=== PATIENT | female | born 1995 ===

== ENCOUNTER 2019-02-27 13:29 | Inpatient (IN) | payer OTHER, MEDICAID ==
[~2019-02-27] VITALS: Ht 170.2 cm; Wt 103.6 kg
[~2019-02-27 13:29] MED LIST: NKM
--- NOTE | 2019-02-27 13:37 | NUR ---
ED Nurse Note: PT BROUGHT IN TO ER TODAY BY [phone] FROM FRIEND'S HOUSE. [id number]. PT STATES HER FRIEND CALLED 911 BECAUSE IT LOOKED LIKE SHE WAS GOING TO FAINT. PT STATES SHE HAD A HEADACHE BUT THAT HEADACHE IS NOW GONE. PT DENIES DIZZINESS, NAUSEA, OR VOMITING. PT DOES PRESENT WITH FEVER - 102.6F. DR BLACKWOOD AWARE. PT DENIES ANY PAIN.
[2019-02-27 13:38] VITALS: BP 118/78
--- NOTE | 2019-02-27 13:53 | Emergency Room Report ---
History of Present Illness General Chief Complaint: Fever Source: Patient, EMS Present Illness HPI Patient is a 23-year-old female brought in by EMS after increased headache for the past 3 days. Patient had gradual onset of symptoms associated with some lightheadedness. She was noted to have fever greater than 102 degrees. She had not been vomiting. patient was brought in [place] a bus stop. She was noted to have decreased headache per triage note. History is obtained from triage nurse. No definite past medical history. Allergies: Coded Allergies: No Known Allergies (Unverified , 02/27/19) Patient History Past Medical History: see triage record Past Surgical History: unable to obtain Pertinent Family History: unable to obtain Last Menstrual Period: 02/25/19 Reviewed Nursing Documentation: PMH: Agreed; PSxH: Agreed Nursing Documentation-PMH Past Medical History: No Stated History Review of Systems All Other Systems: limited - by poor historian Physical Exam Vital Signs Date Time Temp Pulse Resp B/P (MAP) Pulse Ox O2 Delivery O2 Flow Rate FiO2 02/27/19 13:26 102.6 102 16 124/81 (95) 99 Room Air General Appearance: moderate distress, obese, other - somnolent awakes with stimulation Eyes: bilateral eye PERRL ENT: normal ENT inspection Neck: full range of motion Respiratory: chest non-tender, lungs clear, normal breath sounds, other - tachypnea Cardiovascular #1: normal peripheral pulses, no edema, tachycardia Gastrointestinal: normal inspection, non tender, soft Genitourinary: other - slight vaginal bleeding c/w menses Musculoskeletal: normal inspection Neurologic: responsive - loud verbal stimuli, localizes pain, motor strength/ tone normal, other - GCS [id number], somnolent Psychiatric: normal inspection Skin: other - faint rash to trunk and extremities, no petechia or purpura noted Procedures Critical Care Time Critical Care Time Critical care time excluding separately billed procedures was 45 minutes. Lumbar Puncture Consent: Emergent Location: L4-L5 Anesthesia: 1% Lidocaine Volume Anesthetic (ccs): 10 Prep: bedadine Needle Size: 3 1/2 CSF: other - intially slight bloody, cleared Post-Procedure: recumbent position Attempts: Other - three Complications: none Patient Tolerated: Well Medical Decision Making Diagnostic Impression: Primary Impression: Acute febrile illness Additional Impression: Meningitis ER Course Patient presented for increased headache and generalized weakness. Differential diagnosis include is not limited to sepsis, meningitis, encephalitis, intracranial hemorrhage, neuroleptic malignant syndrome, overdose , among others. Because of complexity of patient's case laboratory tests and imaging studies were ordered. CT of the head read by radiology showed no evidence of acute intracranial pathology. Patient noted be febrile with a temperature over 102 degrees. Patient was given IV fluids as well as IV antibiotics. She was noted to have some initial somnolence. This had somewhat improved after IV hydration. Patient was given Rocephin 2 g IV. She was also given IV acyclovir and Decadron. Laboratory testing showed normal WBC count, urinalysis showed no definite evidence of any definite infection. A lumbar puncture was performed which showed some evidence of leukocytosis as well as increased red blood cells in her CSF with lymphocyte predominance. Gram stain showed no organism. Patient was also given vancomycin as well as acyclovir. Patient was noted to have gag reflex intact and protects her airway. Dr. Alcantara was contacted for [facility] for inpatient management due to panel physician. Patient will be admitted to hospital for further monitoring. Labs Test 02/27/19 14:00 02/27/19 14:55 02/27/19 19:04 White Blood Count 9.4 K/UL (4.8-10.8) Red Blood Count 5.15 M/UL (4.20-5.40) Hemoglobin 12.4 G/DL (12.0-16.0) Hematocrit 39.6 % (37.0-47.0) Mean Corpuscular Volume 77 FL (80-99) Mean Corpuscular Hemoglobin 24.0 PG (27.0-31.0) Mean Corpuscular Hemoglobin Concent 31.2 G/DL (32.0-36.0) Red Cell Distribution Width 15.0 % (11.6-14.8) Platelet Count 287 K/UL (150-450) Mean Platelet Volume 5.3 FL (6.5-10.1) Neutrophils (%) (Auto) 72.5 % (45.0-75.0) Lymphocytes (%) (Auto) 15.6 % (20.0-45.0) Monocytes (%) (Auto) 11.3 % (1.0-10.0) Eosinophils (%) (Auto) 0.0 % (0.0-3.0) Basophils (%) (Auto) 0.5 % (0.0-2.0) Sodium Level 135 MMOL/L (136-145) Potassium Level 3.0 MMOL/L (3.5-5.1) Chloride Level 98 MMOL/L (98-107) Carbon Dioxide Level 26 MMOL/L (21-32) Anion Gap 12 mmol/L (5-15) Blood Urea Nitrogen 11 mg/dL (7-18) Creatinine 1.1 MG/DL (0.55-1.30) Estimat Glomerular Filtration Rate > 60 mL/min (>60) Glucose Level 134 MG/DL (74-106) Lactic Acid Level 1.00 mmol/L (0.4-2.0) Calcium Level 8.8 MG/DL (8.5-10.1) Phosphorus Level 3.2 MG/DL (2.5-4.9) Magnesium Level 2.1 MG/DL (1.8-2.4) Total Bilirubin 0.7 MG/DL (0.2-1.0) Aspartate Amino Transf (AST/SGOT) 29 U/L (15-37) Alanine Aminotransferase (ALT/SGPT) 19 U/L (12-78) Alkaline Phosphatase 56 U/L (46-116) Total Creatine Kinase 519 U/L (26-308) Creatine Kinase MB 1.9 NG/ML (0.0-3.6) Creatine Kinase MB Relative Index 0.3 Troponin I 0.000 ng/mL (0.000-0.056) Total Protein 8.8 G/DL (6.4-8.2) Albumin 4.1 G/DL (3.4-5.0) Globulin 4.7 g/dL Albumin/Globulin Ratio 0.9 (1.0-2.7) Thyroid Stimulating Hormone (TSH) 0.258 uiU/mL (0.358-3.740) Urine Color Pale yellow Urine Appearance Clear Urine pH 6 (4.5-8.0) Urine Specific [place] 1.030 (1.005-1.035) Urine Protein 1+ (NEGATIVE) Urine Glucose (UA) Negative (NEGATIVE) Urine Ketones Negative (NEGATIVE) Urine Blood Negative (NEGATIVE) Urine Nitrite Negative (NEGATIVE) Urine Bilirubin Negative (NEGATIVE) Urine Urobilinogen Normal MG/DL (0.0-1.0) Urine Leukocyte Esterase Negative (NEGATIVE) Urine RBC 0-2 /HPF (0 - 2) Urine WBC 2-4 /HPF (0 - 2) Urine Squamous Epithelial Cells Many /LPF (NONE/OCC) Urine Amorphous Sediment Many /LPF (NONE) Urine Bacteria Few /HPF (NONE) Urine HCG, Qualitative Negative (NEGATIVE) Urine Opiates Screen Negative (NEGATIVE) Urine Barbiturates Screen Negative (NEGATIVE) Phencyclidine (PCP) Screen Negative (NEGATIVE) Urine Amphetamines Screen Negative (NEGATIVE) Urine Benzodiazepines Screen Negative (NEGATIVE) Urine Cocaine Screen Negative (NEGATIVE) Urine Marijuana (THC) Screen Negative (NEGATIVE) CSF Appearance Clear (Clear) CSF Color Clolorless (Colorless) CSF WBC 45 /CU MM (0-5) CSF RBC 54 /CU MM CSF Neutrophils % 2 % CSF Lymphocytes % 96 % CSF Monocytes % 2 % CSF Crenated Cells 0 % CSF Glucose 54 mg/dL (40-70) CSF Total Protein 140 MG/DL (15-45) Last Vital Signs Date Time Temp Pulse Resp B/P (MAP) Pulse Ox O2 Delivery O2 Flow Rate FiO2 02/27/19 13:38 94 14 Room Air 02/27/19 13:38 102.6 118/78 100 Status: unchanged Disposition: ADMITTED INPATIENT Condition: Stable Sabas Yu MD Feb 27, 2019 13:53
[2019-02-27] MEDS ORDERED: Sodium Chloride 2,200 ML IVLG ONE (14:00)
[2019-02-27] MEDS ORDERED: cefTRIAXone 2 GM in NS 55 ML IVPB ONE (14:00)
[2019-02-27] MEDS ORDERED: Acetaminophen 500mg (ES) tab ORAL ONE (14:15)
[2019-02-27 14:41] LABS: BASOPHILS % (AUTO) 0.5 % (0.0-2.0); HEMATOCRIT 39.6 % (37.0-47.0); HEMOGLOBIN 12.4 G/DL (12.0-16.0); LYMPHOCYTES % (AUTO) 15.6 % (20.0-45.0); MEAN CORPUSCULAR VOLUME 77 FL (80-99); MONOCYTES % (AUTO) 11.3 % (1.0-10.0); NEUTROPHILS % (AUTO) 72.5 % (45.0-75.0); PLATELET COUNT 287 K/UL (150-450); RED BLOOD COUNT 5.15 M/UL (4.20-5.40); WHITE BLOOD COUNT 9.4 K/UL (4.8-10.8)
[2019-02-27 14:58] LABS: ANION GAP 12 mmol/L (5-15); BLOOD UREA NITROGEN 11 mg/dL (7-18); CALCIUM 8.8 MG/DL (8.5-10.1); CARBON DIOXIDE 26 MMOL/L (21-32); CHLORIDE 98 MMOL/L (98-107); CREATININE 1.1 MG/DL (0.55-1.30); SODIUM 135 MMOL/L (136-145)
[2019-02-27 15:00] VITALS: BP_SYST 114; BP_SYST 118; BP_DIAS 77; BP_DIAS 81
--- NOTE | 2019-02-27 15:08 | NUR ---
HAND-OFF: REPORT GIVEN TO BARBARA ENCARNACION.
--- NOTE | 2019-02-27 15:08 | NUR ---
ED Nurse Note: received report from RN Cade and assumed care, pt vss, resp even and unlabored on RA, sinus rhythm on court monitor, temp 99.2 noted oral. will cont monitor. pt unable to maintain awake more than 30 sec noted.
[2019-02-27 15:10] LABS: ALANINE AMINOTRANSFERASE 19 U/L (12-78); ALBUMIN 4.1 G/DL (3.4-5.0); ALBUMIN/GLOBULIN RATIO 0.9 (1.0-2.7); ALKALINE PHOSPHATASE 56 U/L (46-116); ASPARTATE AMINO TRANSFERASE 29 U/L (15-37); BILIRUBIN,TOTAL 0.7 MG/DL (0.2-1.0); CKMB 1.9 NG/ML (0.0-3.6); CREATINE KINASE 519 U/L (26-308); PHOSPHORUS 3.2 MG/DL (2.5-4.9)
[2019-02-27 15:10] LABS: APPEARANCE,URINE CLEAR; BILIRUBIN, URINE NEGATIVE (NEGATIVE); COLOR,URINE PALE YELLOW; GLUCOSE, URINE (UA) NEGATIVE (NEGATIVE); KETONES,URINE NEGATIVE (NEGATIVE); LEUKOCYTE ESTERASE ,URINE NEGATIVE (NEGATIVE); NITRITE,URINE NEGATIVE (NEGATIVE); PH,URINE 6 (4.5-8.0); PROTEIN,URINE 1+ (NEGATIVE); UROBILINOGEN,URINE NORMAL MG/DL (0.0-1.0)
--- NOTE | 2019-02-27 16:52 | Diagnostic Imaging Report ---
EXAM: CT Head Without Intravenous Contrast CLINICAL HISTORY: AMS TECHNIQUE: Axial computed tomography images of the head brain without intravenous contrast. CTDI is 73.90 mGy and DLP is 2149.40 mGy-cm. One or more of the following dose reduction techniques were used: automated exposure control, adjustment of the mA and or kV according to patient size, use of iterative reconstruction technique. COMPARISON: No relevant prior studies available. FINDINGS: Brain: Unremarkable. No hemorrhage. No significant white matter disease. No edema. Ventricles: Unremarkable. No ventriculomegaly. Bones joints: Unremarkable. No acute fracture. Soft tissues: Unremarkable. Sinuses: Unremarkable as visualized. No acute sinusitis. Mastoid air cells: Unremarkable as visualized. No mastoid effusion. IMPRESSION: Normal head brain CT.
--- NOTE | 2019-02-27 17:00 | NUR ---
ED Nurse Note: pt sleeping at this time, no changes, vss, resp even and unlabored on RA, iv intact and patent, sinus rhythm on monitor, will cont monitor.
[2019-02-27] MEDS ORDERED: Lidocaine 1% Plain 30 ml INJ ONE (18:30)
[2019-02-27] MEDS ORDERED: Vancomycin 1.25 GM in NS 275 ML IVPB SCH (18:30)
--- NOTE | 2019-02-27 18:45 | NUR ---
Nic alcala in EDM - 02/27/19 at 1944 by ANNETTE ED Nurse Note: assisted ERMD for lumbar puncture, pt tolerated well. procedure explained by ERMD.
--- NOTE | 2019-02-27 18:50 | NUR ---
ED Nurse Note: lumbar puncture done at the bedside, procedure was explained by carlos and pt verbally agreed to do it but unable to sign it at this time due to increased lethargy, carlos snyder pt tolerated well.
--- NOTE | 2019-02-27 19:10 | NUR ---
HAND-OFF: Report given to BARBARA SUAREZ and endorsed care.
--- NOTE | 2019-02-27 19:15 | NUR ---
ED Nurse Note: Got report from BARBARA Enamorado. Patient lethargic, reackting only to pain. AAO x0, VSS at this time. Dr. Yu did lumbar puncture, procedure went well.
[2019-02-27] MEDS ORDERED: Acyclovir 750 MG in NS 110 ML IV ONE (19:30)
[2019-02-27 19:54] VITALS: BP 107/67
[2019-02-27 20:00] VITALS: BP 112/65
[2019-02-27] MEDS ORDERED: Vancomycin 1.5gm/NS Premix IVPB ONE (21:00)
--- NOTE | 2019-02-27 21:10 | NUR ---
ED Nurse Note: REPORT GIVEN TO BARBARA RIVER FROM SDU.
[2019-02-27] MEDS ORDERED: Dexamethasone 4mg/ml vial IVP ONE (21:15)
--- NOTE | 2019-02-27 21:30 | NUR ---
NURSE NOTES: Pt transferred to the unit via gurney. Observed pt lying in the bed, lethargic, but answers questions by nodding head. SR on groundwater monitoring technician. VS WNL. No fever noted. IV on L AC 18G, SL. Belongings checked with ER nurse. Skin intact. Bed in the lowest position. Side rails up x3. Will continue to monitor.
[2019-02-27] MEDS: Docusate 100mg cap ORAL SCH (21:53)
[2019-02-27] MEDS: Heparin 5000 units/ml inj SUBQ SCH (21:55)
[2019-02-28] VITALS (7 sets, daily range): BP systolic 115–153; BP diastolic 60–92
--- NOTE | 2019-02-28 | NUR ---
NURSE NOTES: Noted pt sleeping in the bed. No acute distress noted. SR on monitor and storage bin tender. No sob on room air. Will continue to monitor.
[2019-02-28] MEDS: ACYCLOVIR IV SCH ×3 (01:12→17:09)
[2019-02-28] MEDS: NS IV SCH ×3 (01:12→17:09)
--- NOTE | 2019-02-28 03:00 | NUR ---
NURSE NOTES: IV pulled out by pt. New IV on L wrist. Pt tried to go to bathroom without calling RN. Education done regarding call light again. Will continue to monitor.
[2019-02-28] MEDS: Vancomycin 1 GM in NS 275 ML IVPB SCH ×3 (04:38→21:27)
[2019-02-28] MEDS: cefTRIAXone 2 GM in NS 110 ML IVPB SCH ×2 (06:27→17:15)
[2019-02-28 06:42] LABS: ANION GAP 11 mmol/L (5-15); BLOOD UREA NITROGEN 8 mg/dL (7-18); CALCIUM 8.8 MG/DL (8.5-10.1); CARBON DIOXIDE 23 MMOL/L (21-32); CHLORIDE 107 MMOL/L (98-107); CREATININE 0.8 MG/DL (0.55-1.30); POTASSIUM 3.9 MMOL/L (3.5-5.1); SODIUM 141 MMOL/L (136-145)
[2019-02-28 06:53] LABS: HEMATOCRIT 39.6 % (37.0-47.0); HEMOGLOBIN 12.4 G/DL (12.0-16.0); MEAN CORPUSCULAR VOLUME 77 FL (80-99); PLATELET COUNT 253 K/UL (150-450); RED BLOOD COUNT 5.17 M/UL (4.20-5.40); RED CELL DISTRIBUTION WIDTH 15.1 % (11.6-14.8); WHITE BLOOD COUNT 13.4 K/UL (4.8-10.8)
--- NOTE | 2019-02-28 07:52 | NUR ---
NURSE NOTES: received patient report form clementine rn. patient is on bed asleep. not in acute distress. on RA, sat ok. skin is intact.will follow plan of care.
--- NOTE | 2019-02-28 07:56 | NUR ---
HAND-OFF: Report given to BARBARA Eddy. Noted pt have fever of 102.2 and noted and got PRN med and given. Ice packs applied.
[2019-02-28] MEDS: Docusate 100mg cap ORAL SCH ×2 (08:45→21:27)
[2019-02-28] MEDS: Heparin 5000 units/ml inj SUBQ SCH ×2 (08:47→21:31)
--- NOTE | 2019-02-28 13:11 | Infectious Diseases Prog Note ---
Assessment/Plan Assessment/Plan Full consult dictated: A) 1) likely viral meningitis - rule out rule out herpes, rule WNV, influenza negative 2) rash 3) pmh - ? 4) allergies - nkda P) 1) vancomycin, ceftriaxone, acyclovir, doxycycline 2) f/u on cultures, labs and serology 3) will f/u 4) thank you Subjective Allergies: Coded Allergies: No Known Allergies (Unverified , 02/27/19) Objective Vital Signs Last 24 Hour Vital Signs Date Time Temp Pulse Resp B/P (MAP) Pulse Ox O2 Delivery O2 Flow Rate FiO2 02/28/19 08:22 100.9 02/28/19 08:00 Room Air 02/28/19 08:00 100.2 111 20 115/72 (86) 98 02/28/19 07:52 106 02/28/19 04:00 93 02/28/19 04:00 Room Air 02/28/19 04:00 97.8 93 20 140/60 (86) 99 02/28/19 00:00 74 02/28/19 00:00 Room Air 02/28/19 00:00 97.8 74 20 116/73 (87) 100 02/27/19 22:22 Room Air 02/27/19 21:50 69 02/27/19 21:15 99.2 76 18 108/56 99 Room Air 02/27/19 20:00 97.5 78 20 112/65 (81) 99 02/27/19 19:54 97.6 78 16 107/67 100 Room Air 02/27/19 15:00 99.2 88 18 114/77 100 Room Air 02/27/19 13:38 94 14 Room Air 02/27/19 13:38 102.6 94 14 118/78 100 Room Air 02/27/19 13:26 102.6 102 16 124/81 (95) 99 Room Air Height (Feet): 5 Height (Inches): 7.00 Weight (Pounds): 220 Microbiology Date/Time Source Procedure Growth Status 02/27/19 19:04 Cerebral Spinal Fluid Gram Stain - Final Resulted 02/27/19 19:04 Cerebral Spinal Fluid CSF Culture - Preliminary NO GROWTH Resulted 02/27/19 14:45 Nasal Nares - Final Complete 02/27/19 14:45 Nasal Nares - Final Complete Laboratory Tests Test 02/27/19 14:00 02/27/19 14:55 02/27/19 19:04 02/28/19 06:02 White Blood Count 9.4 K/UL (4.8-10.8) 13.4 K/UL (4.8-10.8) H Red Blood Count 5.15 M/UL (4.20-5.40) 5.17 M/UL (4.20-5.40) Hemoglobin 12.4 G/DL (12.0-16.0) 12.4 G/DL (12.0-16.0) Hematocrit 39.6 % (37.0-47.0) 39.6 % (37.0-47.0) Mean Corpuscular Volume 77 FL (80-99) L 77 FL (80-99) L Mean Corpuscular Hemoglobin 24.0 PG (27.0-31.0) L 24.0 PG (27.0-31.0) L Mean Corpuscular Hemoglobin Concent 31.2 G/DL (32.0-36.0) L 31.3 G/DL (32.0-36.0) L Red Cell Distribution Width 15.0 % (11.6-14.8) H 15.1 % (11.6-14.8) H Platelet Count 287 K/UL (150-450) 253 K/UL (150-450) Mean Platelet Volume 5.3 FL (6.5-10.1) L 5.4 FL (6.5-10.1) L Neutrophils (%) (Auto) 72.5 % (45.0-75.0) % (45.0-75.0) Lymphocytes (%) (Auto) 15.6 % (20.0-45.0) L % (20.0-45.0) Monocytes (%) (Auto) 11.3 % (1.0-10.0) H % (1.0-10.0) Eosinophils (%) (Auto) 0.0 % (0.0-3.0) % (0.0-3.0) Basophils (%) (Auto) 0.5 % (0.0-2.0) % (0.0-2.0) Sodium Level 135 MMOL/L (136-145) L 141 MMOL/L (136-145) Potassium Level 3.0 MMOL/L (3.5-5.1) L 3.9 MMOL/L (3.5-5.1) Chloride Level 98 MMOL/L (98-107) 107 MMOL/L (98-107) Carbon Dioxide Level 26 MMOL/L (21-32) 23 MMOL/L (21-32) Anion Gap 12 mmol/L (5-15) 11 mmol/L (5-15) Blood Urea Nitrogen 11 mg/dL (7-18) 8 mg/dL (7-18) Creatinine 1.1 MG/DL (0.55-1.30) 0.8 MG/DL (0.55-1.30) Estimat Glomerular Filtration Rate > 60 mL/min (>60) > 60 mL/min (>60) Glucose Level 134 MG/DL (74-106) H 108 MG/DL (74-106) H Lactic Acid Level 1.00 mmol/L (0.4-2.0) Calcium Level 8.8 MG/DL (8.5-10.1) 8.8 MG/DL (8.5-10.1) Phosphorus Level 3.2 MG/DL (2.5-4.9) Magnesium Level 2.1 MG/DL (1.8-2.4) Total Bilirubin 0.7 MG/DL (0.2-1.0) Aspartate Amino Transf (AST/SGOT) 29 U/L (15-37) Alanine Aminotransferase (ALT/SGPT) 19 U/L (12-78) Alkaline Phosphatase 56 U/L (46-116) Total Creatine Kinase 519 U/L (26-308) H Creatine Kinase MB 1.9 NG/ML (0.0-3.6) Creatine Kinase MB Relative Index 0.3 Troponin I 0.000 ng/mL (0.000-0.056) Total Protein 8.8 G/DL (6.4-8.2) H Albumin 4.1 G/DL (3.4-5.0) Globulin 4.7 g/dL Albumin/Globulin Ratio 0.9 (1.0-2.7) L Thyroid Stimulating Hormone (TSH) 0.258 uiU/mL (0.358-3.740) Urine Color Pale yellow Urine Appearance Clear Urine pH 6 (4.5-8.0) Urine Specific [place] 1.030 (1.005-1.035) Urine Protein 1+ (NEGATIVE) H Urine Glucose (UA) Negative (NEGATIVE) Urine Ketones Negative (NEGATIVE) Urine Blood Negative (NEGATIVE) Urine Nitrite Negative (NEGATIVE) Urine Bilirubin Negative (NEGATIVE) Urine Urobilinogen Normal MG/DL (0.0-1.0) Urine Leukocyte Esterase Negative (NEGATIVE) Urine RBC 0-2 /HPF (0 - 2) Urine WBC 2-4 /HPF (0 - 2) Urine Squamous Epithelial Cells Many /LPF (NONE/OCC) H Urine Amorphous Sediment Many /LPF (NONE) H Urine Bacteria Few /HPF (NONE) Urine HCG, Qualitative Negative (NEGATIVE) Urine Opiates Screen Negative (NEGATIVE) Urine Barbiturates Screen Negative (NEGATIVE) Phencyclidine (PCP) Screen Negative (NEGATIVE) Urine Amphetamines Screen Negative (NEGATIVE) Urine Benzodiazepines Screen Negative (NEGATIVE) Urine Cocaine Screen Negative (NEGATIVE) Urine Marijuana (THC) Screen Negative (NEGATIVE) CSF Appearance Clear (Clear) CSF Color Clolorless (Colorless) CSF WBC 45 /CU MM (0-5) *H CSF RBC 54 /CU MM CSF Neutrophils % 2 % CSF Lymphocytes % 96 % CSF Monocytes % 2 % CSF Crenated Cells 0 % CSF Glucose 54 mg/dL (40-70) CSF Total Protein 140 MG/DL (15-45) H Differential Total Cells Counted 100 Neutrophils % (Manual) 87 % (45-75) H Lymphocytes % (Manual) 5 % (20-45) L Monocytes % (Manual) 5 % (1-10) Eosinophils % (Manual) 1 % (0-3) Basophils % (Manual) 0 % (0-2) Band Neutrophils 2 % (0-8) Platelet Estimate Adequate Platelet Morphology Normal Anisocytosis 1+ Microcytosis 1+ Current Medications Medications (Trade) Dose Ordered Sig/Kandi Route PRN Reason Start Time Stop Time Status Last Admin Dose Admin Acetaminophen (Tylenol) 650 mg Q6H PRN ORAL Mild Pain/Temp > 100.5 02/28/19 07:45 03/30/19 07:44 02/28/19 07:52 Acyclovir 750 mg/ Sodium Chloride 275 ml @ 275 mls/hr Q8H IV 02/28/19 02:00 03/30/19 01:59 02/28/19 09:39 Ceftriaxone Sodium 2 gm/ Sodium Chloride 110 ml @ 220 mls/hr Q12HR@0600,1800 IVPB 02/28/19 06:00 03/07/19 05:59 02/28/19 06:27 Dextrose (Dextrose 50%) 25 ml Q30M PRN IV Hypoglycemia 02/27/19 18:30 03/29/19 18:29 Dextrose (Dextrose 50%) 50 ml Q30M PRN IV Hypoglycemia 02/27/19 18:30 03/29/19 18:29 Docusate Sodium (Colace) 100 mg EVERY 12 HOURS ORAL 02/27/19 21:00 03/29/19 20:59 02/28/19 08:45 Heparin Sodium (Porcine) (Heparin 5000 units/ml) 5,000 units EVERY 12 HOURS SUBQ 02/27/19 21:00 03/29/19 20:59 02/28/19 08:47 Ondansetron HCl (Zofran) 4 mg Q6H PRN IVP Nausea & Vomiting 02/27/19 18:30 03/29/19 18:29 Sodium Chloride 1,000 ml @ 100 mls/hr Q10H IVLG 02/27/19 19:19 03/29/19 19:18 02/28/19 04:39 Vancomycin HCl (Vanco rx to dose) 1 ea DAILY PRN MISC Per rx protocol 02/27/19 18:30 03/29/19 18:29 Vancomycin HCl 1 gm/Sodium Chloride 275 ml @ 183.708 mls/hr Q8HR@0500,1300,2100 IVPB 02/28/19 05:00 03/05/19 04:59 02/28/19 04:38 Alejandro Arellano MD Feb 28, 2019 13:11
[2019-02-28] MEDS: Doxycycline Hyclate 100 MG in D5W 110 ML IV SCH ×2 (14:23→21:27)
[2019-02-28] MEDS ORDERED: Tubing IV Secondary IV ONE (15:51)
[2019-02-28] MEDS ORDERED: NS 275ml ONE (15:51)
--- NOTE | 2019-02-28 16:09 | NUR ---
NURSE NOTES: paged dr rob to report that patient is not tolerating oral feedings. tamiflu oral is due at 1800 tonight. awaits callback and new order.
--- NOTE | 2019-02-28 16:22 | NUR ---
NURSE NOTES: called dr rob and reported that patient is not tolerating oral feeding, that a small amount of apple sauce was given and patient was vomiting. this nurse also reported that this patient has a tamiflu oral ordered at 1800 tonight, per dr rob just document that patient unable to tolerate oral feedings/meds. no need to NPO patient as of this time. will take note and carry out.
[2019-02-28] MEDS: Oseltamivir 75mg cap ORAL SCH (17:18)
--- NOTE | 2019-02-28 17:27 | History and Physical ---
History of Present Illness General Date patient seen: Feb 28, 2019 Reason for Hospitalization: Fever Present Illness HPI Trenton Elena is a 23 yo woman with no known PMH who presented with fever and AMS. Unable to obtain history from patient as patient with AMS and not verbally responsive. No contact or family information in chart for collateral information. Per ED records, patient brought in after friend reported that patient looked like she was about to faint at her house. Patient noted with fever to 102.6 on admission and tachycardic to 100s. Labs notable for leukocytosis 13.4 (today, none on admission, likely 2/2 decadron in ED), hypokalemia 3.0 (resolved today), and CK 519. CT head unremarkable. LP was done in ED, CSF analysis showed negative gram stain, negative bacterial culture to date, 45 WBC, 54 RBC, 54 glucose, 140 protein, and lymphocyte predominant. Patient was started on antibiotics and antiviral with ceftriaxone, acyclovir, and vancomycin IV. Allergies: Coded Allergies: No Known Allergies (Unverified , 02/27/19) Medication History Scheduled No Known Medications* (NKM - No Known Medications*), 0 ., (Reported) Patient History Limited by: medical condition History Provided By: Medical Record Healthcare decision maker Resuscitation status Full Code Advanced Directive on File Review of Systems ROS Narrative Unable to obtain ROS due to patient's mental status Physical Exam General Appearance: lethargic, confused, overweight, other - Opens eyes to painful stimuli and moans but does not respond to questions, protecting airway, no respiratory distress Lines, tubes and drains: peripheral HEENT: normocephalic, atraumatic Respiratory/Chest: lungs clear, normal breath sounds, no respiratory distress Cardiovascular/Chest: normal peripheral pulses, normal rate, regular rhythm Abdomen: normal bowel sounds, non tender, soft Skin Exam: other - Scattered erythematous rash noted on trunk, back, extremities, and face, non vesicular Neurologic: other - AAOx0, moans and opens eyes to painful stimuli Last 24 Hour Vital Signs Date Time Temp Pulse Resp B/P (MAP) Pulse Ox O2 Delivery O2 Flow Rate FiO2 02/28/19 16:00 Room Air 02/28/19 15:23 94 02/28/19 12:00 Room Air 02/28/19 12:00 83 02/28/19 12:00 100.2 91 36 120/75 (90) 98 9/29/19 08:22 100.9 02/28/19 08:00 Room Air 02/28/19 08:00 100.2 111 20 115/72 (86) 98 02/28/19 07:52 106 02/28/19 04:00 93 02/28/19 04:00 Room Air 02/28/19 04:00 97.8 93 20 140/60 (86) 99 02/28/19 00:00 74 02/28/19 00:00 Room Air 02/28/19 00:00 97.8 74 20 116/73 (87) 100 02/27/19 22:22 Room Air 02/27/19 21:50 69 02/27/19 21:15 99.2 76 18 108/56 99 Room Air 02/27/19 20:00 97.5 78 20 112/65 (81) 99 02/27/19 19:54 97.6 78 16 107/67 100 Room Air Intake and Output 02/27/19 02/28/19 19:00 07:00 Intake Total 760 ml Balance 760 ml Intake Oral 60 ml IV Total 700 ml # Voids 1 1 Laboratory Tests Test 02/27/19 19:00 02/27/19 19:04 02/28/19 06:00 02/28/19 06:02 CSF Varicella-Zoster IgM Antibody Pending CSF West Nile Virus IgG Antibody Pending CSF West Nile Virus IgM Antibody Pending Herpes Simplex Virus IgM Ab Screen Pending CSF Appearance Clear (Clear) CSF Color Clolorless (Colorless) CSF WBC 45 /CU MM (0-5) *H CSF RBC 54 /CU MM CSF Neutrophils % 2 % CSF Lymphocytes % 96 % CSF Monocytes % 2 % CSF Crenated Cells 0 % CSF Glucose 54 mg/dL (40-70) CSF Total Protein 140 MG/DL (15-45) H HIV (1&2) Antibody Rapid Negative (NEGATIVE) White Blood Count 13.4 K/UL (4.8-10.8) H Red Blood Count 5.17 M/UL (4.20-5.40) Hemoglobin 12.4 G/DL (12.0-16.0) Hematocrit 39.6 % (37.0-47.0) Mean Corpuscular Volume 77 FL (80-99) L Mean Corpuscular Hemoglobin 24.0 PG (27.0-31.0) L Mean Corpuscular Hemoglobin Concent 31.3 G/DL (32.0-36.0) L Red Cell Distribution Width 15.1 % (11.6-14.8) H Platelet Count 253 K/UL (150-450) Mean Platelet Volume 5.4 FL (6.5-10.1) L Neutrophils (%) (Auto) % (45.0-75.0) Lymphocytes (%) (Auto) % (20.0-45.0) Monocytes (%) (Auto) % (1.0-10.0) Eosinophils (%) (Auto) % (0.0-3.0) Basophils (%) (Auto) % (0.0-2.0) Differential Total Cells Counted 100 Neutrophils % (Manual) 87 % (45-75) H Lymphocytes % (Manual) 5 % (20-45) L Monocytes % (Manual) 5 % (1-10) Eosinophils % (Manual) 1 % (0-3) Basophils % (Manual) 0 % (0-2) Band Neutrophils 2 % (0-8) Platelet Estimate Adequate Platelet Morphology Normal Anisocytosis 1+ Microcytosis 1+ Sodium Level 141 MMOL/L (136-145) Potassium Level 3.9 MMOL/L (3.5-5.1) Chloride Level 107 MMOL/L (98-107) Carbon Dioxide Level 23 MMOL/L (21-32) Anion Gap 11 mmol/L (5-15) Blood Urea Nitrogen 8 mg/dL (7-18) Creatinine 0.8 MG/DL (0.55-1.30) Estimat Glomerular Filtration Rate > 60 mL/min (>60) Glucose Level 108 MG/DL (74-106) H Calcium Level 8.8 MG/DL (8.5-10.1) Microbiology Date/Time Source Procedure Growth Status 02/27/19 19:04 Cerebral Spinal Fluid Gram Stain - Final Resulted 02/27/19 19:04 Cerebral Spinal Fluid CSF Culture - Preliminary NO GROWTH Resulted Height (Feet): 5 Height (Inches): 7.00 Weight (Pounds): 220 Medications Current Medications Medications (Trade) Dose Ordered Sig/Kandi Route PRN Reason Start Time Stop Time Status Last Admin Dose Admin Acetaminophen (Tylenol) 650 mg Q6H PRN ORAL Mild Pain/Temp > 100.5 02/28/19 07:45 03/30/19 07:44 02/28/19 07:52 Acyclovir 750 mg/ Sodium Chloride 275 ml @ 275 mls/hr Q8H IV 02/28/19 02:00 03/30/19 01:59 02/28/19 09:39 Ceftriaxone Sodium 2 gm/ Sodium Chloride 110 ml @ 220 mls/hr Q12HR@0600,1800 IVPB 02/28/19 06:00 03/07/19 05:59 02/28/19 06:27 Dextrose (Dextrose 50%) 25 ml Q30M PRN IV Hypoglycemia 02/27/19 18:30 03/29/19 18:29 Dextrose (Dextrose 50%) 50 ml Q30M PRN IV Hypoglycemia 02/27/19 18:30 03/29/19 18:29 Docusate Sodium (Colace) 100 mg EVERY 12 HOURS ORAL 02/27/19 21:00 03/29/19 20:59 02/28/19 08:45 Doxycycline Hyclate 100 mg/ Dextrose 110 ml @ 110 mls/hr Q12HR IV 02/28/19 14:30 03/07/19 14:29 02/28/19 14:23 Heparin Sodium (Porcine) (Heparin 5000 units/ml) 5,000 units EVERY 12 HOURS SUBQ 02/27/19 21:00 03/29/19 20:59 02/28/19 08:47 Ondansetron HCl (Zofran) 4 mg Q6H PRN IVP Nausea & Vomiting 02/27/19 18:30 03/29/19 18:29 Oseltamivir Phosphate (Tamiflu) 75 mg TWICE A DAY ORAL 02/28/19 18:00 03/05/19 17:59 Sodium Chloride 1,000 ml @ 100 mls/hr Q10H IVLG 02/27/19 19:19 03/29/19 19:18 02/28/19 14:26 Vancomycin HCl (Vanco rx to dose) 1 ea DAILY PRN MISC Per rx protocol 02/27/19 18:30 03/29/19 18:29 Vancomycin HCl 1 gm/Sodium Chloride 275 ml @ 183.708 mls/hr Q8HR@0500,1300,2100 IVPB 02/28/19 05:00 03/05/19 04:59 02/28/19 13:35 Assessment/Plan Status: not improved, fever Assessment/Plan: Trenton Elena is a 23 yo woman with no known PMH who presented with fever and AMS , found with likely viral meningitis. Neuro/ID: Likely viral meningitis, infectious encephalopathy - CT head overall unremarkable - Febrile to Tm 102.6 - Severely altered mentation - CSF notable for 45 WBC with 96% lymphocytes, 54 glucose, elevated protein 140. Gram stain negative and bacterial culture negative thus far - ID consult Dr. Arellano, recs appreciated - Continue ceftriaxone 2gm IV q12hrs, vancomycin 1gm IV q8hrs, and acyclovir 750mg IV q8hrs. Add doxycycline 100mg IV q12hrs and tamiflu 75mg BID - S/p decadron x 1 in ED. CSF studies not consistent with strep meningitis, hold off on further steroids - F/U further studies including WNV, HSV, VZV, TB spot, rickettsial, hepatitis, HIV, crypto, coccidio - Tylenol PRN fever Hypokalemia - Resolved with repletion Nausea/vomiting - Zofran PRN FEN IVF NS @100cc/hr until able to tolerate PO 2/2 mental status Regular diet when awake but otherwise NPO Heparin subq DVT PPX Discussed with Dr. Arellano and RN. I spent 75 minutes on this patient's care, including >50% on counseling and/or coordination of care. Michelle Mcgovern M.D. Feb 28, 2019 17:27
--- NOTE | 2019-02-28 19:28 | NUR ---
NURSE NOTES: copy of patients report given to travis arteaga
--- NOTE | 2019-02-28 21:00 | NUR ---
NURSE NOTES: Pt report received from Wendy JIMENEZ MONICA. Pt is alert and oriented times 1. pt vital signs are stable, pt is on a manager cardiac able to show NSR, no abnormalities noted. pt is on room air, able to sat at 99%, no distress noted. pt bed is locked, armed, bed rails up times 3, call light within reach. will continue plan of care.
--- NOTE | 2019-02-28 21:00 | Consultation ---
DATE OF CONSULTATION: 02/28/2019 INFECTIOUS DISEASES CONSULTATION ATTENDING PHYSICIAN: Yao Marmolejo M.D. REFERRING PHYSICIAN: Dr. Mcgovern. REASON FOR CONSULTATION: Meningitis, likely viral meningitis. CHIEF COMPLAINT: The patient's chief complaint coming into the hospital is meningitis, altered mental status, and fevers. HISTORY OF PRESENT ILLNESS: This is a 23-year-old female who comes in to [facility] with altered mental status and fevers. She had an LP, which showed 45 white cells, 96% lymphocytes, CSF protein 140, and glucose of 54. CSF culture is negative to date it looks like. The patient also has a rash. She also came in with headache. Currently, she is lethargic and cannot give any history. The patient was started on Rocephin, acyclovir, and vancomycin. Serology has been ordered and CSF for herpes simplex, and zoster PCR has been ordered West Nile virus IgM for the CSF. I have also ordered serology. I am going to add doxycycline because the patient does have a rash and consider rickettsial infection including Rickettsia typhi. The influenza screen is negative. Consider still treating with Tamiflu if does not improve. The patient will continue antibiotics, pending serology and CSF cultures. Case was discussed with Dr. Mcgovern. REVIEW OF SYSTEMS: Cannot be obtained from the patient. PAST MEDICAL HISTORY: Unknown. FAMILY HISTORY: Unknown. ALLERGIES: Negative. SOCIAL HISTORY: Unknown. MEDICATIONS: Reviewed. MAR was noted. She is on multiple antibiotics including doxycycline, Rocephin, acyclovir, and vancomycin. IV fluids have been given. PHYSICAL EXAMINATION: VITAL SIGNS: T-max is 102.6, current temperature is 100.9; pulse rate 111; respiratory rate 20; saturation 98%; and blood pressure 115/72. GENERAL: Lethargic, weak, opens her eyes, but very lethargic. NECK: Seems to be mostly supple, but difficult to assess because of her lethargy. She is normocephalic. No icterus. HEART: Regular. No obvious gallop or murmur. Tachycardic. ABDOMEN: Soft. Positive bowel sounds. Nontender. LUNGS: Clear bilaterally. No rhonchi or rales. SKIN: She has a maculopapular rash. No ecchymosis noted. No vesicles noted. MUSCULOSKELETAL: No effusion. Legs without cellulitis. NEUROLOGIC: Lethargic, could not really assess further. LABORATORY AND DIAGNOSTIC DATA: UA, leukocyte esterase negative. Creatinine is 0.8. White count 13.4, hemoglobin 12.4. CSF, LP, had 45 white cells, 140 protein, glucose 54, and 96% lymphocytes. CSF culture negative to date. CSF serology for West Nile virus IgM and herpes zoster virus and simplex virus PCR has been ordered. CT scan of the head showed normal CT scan. ASSESSMENT AND PLAN: 1. The patient likely has viral meningitis, rule out herpes simplex virus and zoster virus meningitis. The patient also had altered mental status, fevers, rule out West Nile virus infection. Rule out rickettsial infection of the rash such as Rickettsia typhi. At this time, we will continue vancomycin, Rocephin, acyclovir, and doxycycline. The patient may need Tamiflu if does not improve; however, influenza screen is negative. Check on serology and CSF studies as outlined. We will also check HIV test. 2. Past medical history otherwise unknown. 3. No allergy. 4. Case was discussed with Dr. Mcgovern. 5. We will follow with you. Thank you for this consultation. Alejandro Arellano M.D. DR: Tammy JOB#: [id number] CC:
--- NOTE | 2019-02-28 21:30 | NUR ---
NURSE NOTES: Will run Vibramycin IV after Vancomycin IV infusion is finished.
[2019-03-01] VITALS: BP 122/84
--- NOTE | 2019-03-01 01:10 | NUR ---
NURSE NOTES: Ice packs have been placed in Pt Auxiliary.
[2019-03-01] MEDS: ACYCLOVIR IV SCH ×3 (01:15→18:18)
[2019-03-01] MEDS: NS IV SCH ×3 (01:15→18:18)
[2019-03-01 04:00] VITALS: BP 140/70
--- NOTE | 2019-03-01 04:53 | NUR ---
NURSE NOTES: Spoke with Caio Casanova RN Pharmacist. she stated she will print labels for the vanco 1.5GM and recefin 2GM. will leaf size picker med from household coordinator. Addendum: 03/01/19 at 0457 by JEFFREY ROE RN NURSE NOTES: Spoke with Caio Casanova RX Pharmacist. she stated she will print labels for the vanco 1.5GM and recefin 2GM. will leaf size picker med from household coordinator.
[2019-03-01] MEDS: cefTRIAXone 2 GM in NS 110 ML IVPB SCH ×2 (05:21→17:21)
[2019-03-01] MEDS: Vancomycin 1.5gm/NS Premix IVPB SCH ×3 (05:21→20:14)
--- NOTE | 2019-03-01 05:22 | NUR ---
NURSE NOTES: Will run vanco after rocephin IV. untill rocephine is finished, vanco is to be returned to fridge.
[2019-03-01 06:07] LABS: BASOPHILS % (AUTO) 0.3 % (0.0-2.0); HEMATOCRIT 33.8 % (37.0-47.0); HEMOGLOBIN 10.7 G/DL (12.0-16.0); LYMPHOCYTES % (AUTO) 15.3 % (20.0-45.0); MEAN CORPUSCULAR VOLUME 76 FL (80-99); NEUTROPHILS % (AUTO) 78.4 % (45.0-75.0); PLATELET COUNT 262 K/UL (150-450); RED BLOOD COUNT 4.43 M/UL (4.20-5.40); RED CELL DISTRIBUTION WIDTH 14.8 % (11.6-14.8); WHITE BLOOD COUNT 13.2 K/UL (4.8-10.8)
[2019-03-01 06:36] LABS: ALANINE AMINOTRANSFERASE 26 U/L (12-78); ALBUMIN 2.9 G/DL (3.4-5.0); ALBUMIN/GLOBULIN RATIO 0.7 (1.0-2.7); ALKALINE PHOSPHATASE 42 U/L (46-116); ASPARTATE AMINO TRANSFERASE 34 U/L (15-37); BILIRUBIN,TOTAL 0.7 MG/DL (0.2-1.0); CALCIUM 8.6 MG/DL (8.5-10.1); CHLORIDE 104 MMOL/L (98-107); CREATININE 0.6 MG/DL (0.55-1.30); POTASSIUM 3.1 MMOL/L (3.5-5.1); SODIUM 138 MMOL/L (136-145)
[2019-03-01 07:13] LABS: CARBON DIOXIDE 23 MMOL/L (21-32)
[2019-03-01 07:18] LABS: BLOOD UREA NITROGEN 5 mg/dL (7-18)
--- NOTE | 2019-03-01 07:20 | NUR ---
HAND-OFF: Report given to Mary Kay Lal Pt remains stable.
--- NOTE | 2019-03-01 07:21 | NUR ---
NURSE NOTES: Received patient patient clean and dry, A&O x 1, NSR, 22g IV left wrist with NS running at 100mL/hr, skin intact Addendum: 03/01/19 at 0843 by JORDON LOOMIS RN No skin alterations noted at this time. Bed is lowest position, alarm on,call light within reach, side rails up x2,sister at bedside, will continue to monitor pt.
[2019-03-01 08:00] VITALS: BP 136/83
--- NOTE | 2019-03-01 09:08 | General Progress Note ---
Assessment/Plan Problem List: (1) Meningitis ICD Codes: G03.9 - Meningitis, unspecified SNOMED: 5050297 (2) Acute febrile illness ICD Codes: R50.9 - Fever, unspecified SNOMED: 455247252 (3) Fever ICD Codes: R50.9 - Fever, unspecified SNOMED: 169472206 Status: not improved, fever Assessment/Plan: Trenotn Elena is a 23 yo woman with no known PMH who presented with fever and AMS , found with likely viral meningitis. Neuro/ID: Likely viral meningitis, infectious encephalopathy - CT head overall unremarkable - Febrile to Tm 101.2 past 24hrs - Severely altered mentation - CSF notable for 45 WBC with 96% lymphocytes, 54 glucose, elevated protein 140. Gram stain negative and bacterial culture negative thus far - ID consult Dr. Arellano, recs appreciated - Continue ceftriaxone 2gm IV q12hrs, vancomycin 1gm IV q8hrs, and acyclovir 750mg IV q8hrs, doxycycline 100mg IV q12hrs and tamiflu 75mg BID - S/p decadron x 1 in ED. CSF studies not consistent with strep meningitis, hold off on further steroids - F/U further studies including WNV, HSV, VZV, TB spot, rickettsial, hepatitis, HIV, crypto, coccidio - Tylenol PRN fever Hypokalemia - Replace as needed Nausea/vomiting - Zofran PRN FEN IVF NS @100cc/hr until able to tolerate PO 2/2 mental status Regular diet when awake but otherwise NPO Heparin subq DVT PPX Discussed with RN. I spent 40 minutes on this patient's care, including >50% on counseling and/or coordination of care. Subjective Date patient seen: Mar 01, 2019 Allergies: Coded Allergies: No Known Allergies (Unverified , 02/27/19) Subjective unresponsive, poor historian Objective Last 24 Hour Vital Signs Date Time Temp Pulse Resp B/P (MAP) Pulse Ox O2 Delivery O2 Flow Rate FiO2 03/01/19 08:00 97.0 89 20 136/83 (100) 100 03/01/19 08:00 Room Air 03/01/19 07:26 78 03/01/19 04:00 Room Air 03/01/19 04:00 98.1 87 20 140/70 (93) 100 03/01/19 04:00 75 03/01/19 01:01 99.8 03/01/19 00:00 Room Air 03/01/19 00:00 100.1 87 20 122/84 (97) 98 03/01/19 00:00 81 02/28/19 20:00 98.2 96 20 129/74 (92) 97 02/28/19 20:00 Room Air 02/28/19 20:00 88 02/28/19 16:00 101.2 92 39 153/92 (112) 98 02/28/19 16:00 Room Air 02/28/19 15:23 94 02/28/19 12:00 Room Air 02/28/19 12:00 83 02/28/19 12:00 100.2 91 36 120/75 (90) 98 Intake and Output 02/28/19 03/01/19 19:00 07:00 Intake Total 2292.416 ml 1595 ml Balance 2292.416 ml 1595 ml Intake Oral 0 ml IV Total 2292.416 ml 1595 ml # Voids 2 Laboratory Tests 02/28/19 20:00: Vancomycin Level Trough 5.0 03/01/19 05:05: White Blood Count 13.2H, Red Blood Count 4.43, Hemoglobin 10.7L, Hematocrit 33.8L, Mean Corpuscular Volume 76L, Mean Corpuscular Hemoglobin 24.2L, Mean Corpuscular Hemoglobin Concent 31.7L, Red Cell Distribution Width 14.8, Platelet Count 262, Mean Platelet Volume 5.7L, Neutrophils (%) (Auto) 78.4H, Lymphocytes (%) (Auto) 15.3L, Monocytes (%) (Auto) 6.0, Eosinophils (%) (Auto) 0.0, Basophils (%) (Auto) 0.3, Sodium Level 138, Potassium Level 3.1L, Chloride Level 104, Carbon Dioxide Level 23, Blood Urea Nitrogen 5L, Creatinine 0.6, Estimat Glomerular Filtration Rate > 60, Glucose Level 93, Calcium Level 8.6, Total Bilirubin 0.7, Aspartate Amino Transf (AST/SGOT) 34, Alanine Aminotransferase (ALT/SGPT) 26, Alkaline Phosphatase 42L, Total Protein 7.1, Albumin 2.9L, Globulin 4.2, Albumin/Globulin Ratio 0.7L, Free Thyroxine 1.13, Triiodothyonine (T3) [Pending], Free Triiodothyronine 1.0L, Coccidioides Antibody (Comp Fix) [Pending], West Nile Virus IgG Antibody [Pending], West Nile Virus IgM Antibody [Pending], Hepatitis A IgM Antibody [Pending], Hepatitis B Surface Antigen [Pending], Hepatitis B Core IgM Antibody [Pending], Hepatitis C Antibody [Pending], Q Fever Phase I IgG Antibody [Pending], Q Fever Phase II IgG Antibody [Pending], Rickettsia IgG Ab ([facility] Fever) [Pending], Rickettsia IgM Ab ([facility] Fever) [Pending], TB Test (T-Spot) [Pending], TB Test Nil Control (T-Spot) [Pending], TB Test Panel A (T-Spot) [Pending], TB Test Panel B (T-Spot) [Pending], TB Test Positive Control (T-Spot) [Pending], Typhus Fever IgG Antibody Titer [Pending], Typhus Fever IgG Antibody [Pending], Typhus Fever IgM Antibody Titer [Pending], Typhus Fever IgM Antibody [Pending] Height (Feet): 5 Height (Inches): 7.00 Weight (Pounds): 220 Objective General Appearance: lethargic, confused, overweight, other - Opens eyes to painful stimuli and moans but does not respond to questions, protecting airway, no respiratory distress Lines, tubes and drains: peripheral HEENT: normocephalic, atraumatic Respiratory/Chest: lungs clear, normal breath sounds, no respiratory distress Cardiovascular/Chest: normal peripheral pulses, normal rate, regular rhythm Abdomen: normal bowel sounds, non tender, soft Skin Exam: other - Scattered erythematous rash noted on trunk, back, extremities, and face, non vesicular Neurologic: other - AAOx0, moans and opens eyes to painful stimuli Keon Goldberg M.D. Mar 01, 2019 09:08
--- NOTE | 2019-03-01 09:13 | General Progress Note ---
Assessment/Plan Status: not improved, fever Subjective Allergies: Coded Allergies: No Known Allergies (Unverified , 02/27/19) Objective Last 24 Hour Vital Signs Date Time Temp Pulse Resp B/P (MAP) Pulse Ox O2 Delivery O2 Flow Rate FiO2 03/01/19 08:00 97.0 89 20 136/83 (100) 100 03/01/19 08:00 Room Air 03/01/19 07:26 78 03/01/19 04:00 Room Air 03/01/19 04:00 98.1 87 20 140/70 (93) 100 03/01/19 04:00 75 03/01/19 01:01 99.8 03/01/19 00:00 Room Air 03/01/19 00:00 100.1 87 20 122/84 (97) 98 03/01/19 00:00 81 02/28/19 20:00 98.2 96 20 129/74 (92) 97 02/28/19 20:00 Room Air 02/28/19 20:00 88 02/28/19 16:00 101.2 92 39 153/92 (112) 98 02/28/19 16:00 Room Air 02/28/19 15:23 94 02/28/19 12:00 Room Air 02/28/19 12:00 83 02/28/19 12:00 100.2 91 36 120/75 (90) 98 Intake and Output 02/28/19 03/01/19 19:00 07:00 Intake Total 2292.416 ml 1595 ml Balance 2292.416 ml 1595 ml Intake Oral 0 ml IV Total 2292.416 ml 1595 ml # Voids 2 Laboratory Tests 02/28/19 20:00: Vancomycin Level Trough 5.0 03/01/19 05:05: White Blood Count 13.2H, Red Blood Count 4.43, Hemoglobin 10.7L, Hematocrit 33.8L, Mean Corpuscular Volume 76L, Mean Corpuscular Hemoglobin 24.2L, Mean Corpuscular Hemoglobin Concent 31.7L, Red Cell Distribution Width 14.8, Platelet Count 262, Mean Platelet Volume 5.7L, Neutrophils (%) (Auto) 78.4H, Lymphocytes (%) (Auto) 15.3L, Monocytes (%) (Auto) 6.0, Eosinophils (%) (Auto) 0.0, Basophils (%) (Auto) 0.3, Sodium Level 138, Potassium Level 3.1L, Chloride Level 104, Carbon Dioxide Level 23, Blood Urea Nitrogen 5L, Creatinine 0.6, Estimat Glomerular Filtration Rate > 60, Glucose Level 93, Calcium Level 8.6, Total Bilirubin 0.7, Aspartate Amino Transf (AST/SGOT) 34, Alanine Aminotransferase (ALT/SGPT) 26, Alkaline Phosphatase 42L, Total Protein 7.1, Albumin 2.9L, Globulin 4.2, Albumin/Globulin Ratio 0.7L, Free Thyroxine 1.13, Triiodothyonine (T3) [Pending], Free Triiodothyronine 1.0L, Coccidioides Antibody (Comp Fix) [Pending], West Nile Virus IgG Antibody [Pending], West Nile Virus IgM Antibody [Pending], Hepatitis A IgM Antibody [Pending], Hepatitis B Surface Antigen [Pending], Hepatitis B Core IgM Antibody [Pending], Hepatitis C Antibody [Pending], Q Fever Phase I IgG Antibody [Pending], Q Fever Phase II IgG Antibody [Pending], Rickettsia IgG Ab ([facility] Fever) [Pending], Rickettsia IgM Ab ([facility] Fever) [Pending], TB Test (T-Spot) [Pending], TB Test Nil Control (T-Spot) [Pending], TB Test Panel A (T-Spot) [Pending], TB Test Panel B (T-Spot) [Pending], TB Test Positive Control (T-Spot) [Pending], Typhus Fever IgG Antibody Titer [Pending], Typhus Fever IgG Antibody [Pending], Typhus Fever IgM Antibody Titer [Pending], Typhus Fever IgM Antibody [Pending] Height (Feet): 5 Height (Inches): 7.00 Weight (Pounds): 220 Keon Goldberg M.D. Mar 01, 2019 09:13
[2019-03-01] MEDS: Docusate 100mg cap ORAL SCH ×2 (09:44→20:15)
[2019-03-01] MEDS: Heparin 5000 units/ml inj SUBQ SCH ×2 (09:45→20:15)
[2019-03-01] MEDS: Oseltamivir 75mg cap ORAL SCH ×2 (09:45→18:00)
[2019-03-01] MEDS: Doxycycline Hyclate 100 MG in D5W 110 ML IV SCH ×2 (09:53→20:14)
--- NOTE | 2019-03-01 11:18 | NUR ---
Social Service Note MALICK completed skip trace to locate family. SW located patient's Aunt Lilian [phone] who will contact patient's sister and additional family members. Address and phone number of the hospital provided. Nursing station notified.
--- NOTE | 2019-03-01 11:39 | Cardiology Report ---
APPROVED REPORT EKG Measurement Heart [id number] Normal sinus rhythm Possible Left atrial enlargement Borderline ECG
[2019-03-01 12:00] VITALS: BP 140/92
--- NOTE | 2019-03-01 12:53 | Diagnostic Imaging Report ---
Indication: Cough Technique: One view of the chest Comparison: none Findings: Lungs and pleural spaces are clear. The heart size is normal Impression: Negative
--- NOTE | 2019-03-01 13:18 | NUR ---
NURSE NOTES: Left a message for the patient's aunt Lilian [phone] waiting for a call back
--- NOTE | 2019-03-01 14:13 | NUR ---
NURSE NOTES: Spoke with patient's aunt Lilian Elena who authorized PICC placement
[2019-03-01] MEDS ORDERED: Lidocaine 1% Plain 30 ml INJ PRN (15:00)
[2019-03-01] MEDS ORDERED: Heparin1,000 units/500ml Premix(Conc:2 units/ml) IV PRN (15:00)
--- NOTE | 2019-03-01 15:00 | NUR ---
NURSE NOTES: Bed bath provided
[2019-03-01 16:00] VITALS: BP 145/93
--- NOTE | 2019-03-01 16:08 | Infectious Diseases Prog Note ---
Assessment/Plan Assessment/Plan A) 1) likely viral meningitis - rule out HSV/HZV, rule WNV, influenza negative, rule out other 2) rash, ams 3) pmh - ? 4) allergies - nkda P) 1) vancomycin, ceftriaxone, acyclovir, doxycycline, tamiflu 2) f/u on cultures, labs and serology, f/u on csf 3) will f/u Subjective Constitutional: Reports: fatigue, other - lethargic ; Denies: fever HEENT: Denies: congestion Respiratory: Denies: shortness of breath Gastrointestinal/Abdominal: Denies: nausea, vomiting, diarrhea Genitourinary: Reports: other - + espino Allergies: Coded Allergies: No Known Allergies (Unverified , 02/27/19) Objective Vital Signs Last 24 Hour Vital Signs Date Time Temp Pulse Resp B/P (MAP) Pulse Ox O2 Delivery O2 Flow Rate FiO2 03/01/19 13:19 79 03/01/19 12:02 Room Air 03/01/19 12:00 98.2 61 24 140/92 (108) 98 03/01/19 08:00 97.0 89 20 136/83 (100) 100 03/01/19 08:00 Room Air 03/01/19 07:26 78 03/01/19 04:00 Room Air 03/01/19 04:00 98.1 87 20 140/70 (93) 100 03/01/19 04:00 75 03/01/19 01:01 99.8 03/01/19 00:00 Room Air 03/01/19 00:00 100.1 87 20 122/84 (97) 98 03/01/19 00:00 81 02/28/19 20:00 98.2 96 20 129/74 (92) 97 02/28/19 20:00 Room Air 02/28/19 20:00 88 Height (Feet): 5 Height (Inches): 7.00 Weight (Pounds): 220 General Appearance: no acute distress HEENT: normocephalic, atraumatic, anicteric Respiratory/Chest: lungs clear, normal breath sounds, no respiratory distress Cardiovascular: normal rate, regular rhythm Abdomen: normal bowel sounds, soft, non tender, no organomegaly, non distended Microbiology Date/Time Source Procedure Growth Status 02/27/19 14:15 Blood Blood Culture - Preliminary NO GROWTH AFTER 24 HOURS Resulted 02/27/19 14:00 Blood Blood Culture - Preliminary NO GROWTH AFTER 24 HOURS Resulted 02/27/19 19:04 Cerebral Spinal Fluid Gram Stain - Final Resulted 02/27/19 19:04 Cerebral Spinal Fluid CSF Culture - Preliminary NO GROWTH AFTER 24 HOURS Resulted 02/27/19 14:45 Nasal Nares - Final Complete 02/27/19 14:45 Nasal Nares - Final Complete Laboratory Tests Test 02/28/19 20:00 03/01/19 05:05 Vancomycin Level Trough 5.0 ug/mL (5.0-12.0) White Blood Count 13.2 K/UL (4.8-10.8) H Red Blood Count 4.43 M/UL (4.20-5.40) Hemoglobin 10.7 G/DL (12.0-16.0) L Hematocrit 33.8 % (37.0-47.0) L Mean Corpuscular Volume 76 FL (80-99) L Mean Corpuscular Hemoglobin 24.2 PG (27.0-31.0) L Mean Corpuscular Hemoglobin Concent 31.7 G/DL (32.0-36.0) L Red Cell Distribution Width 14.8 % (11.6-14.8) Platelet Count 262 K/UL (150-450) Mean Platelet Volume 5.7 FL (6.5-10.1) L Neutrophils (%) (Auto) 78.4 % (45.0-75.0) H Lymphocytes (%) (Auto) 15.3 % (20.0-45.0) L Monocytes (%) (Auto) 6.0 % (1.0-10.0) Eosinophils (%) (Auto) 0.0 % (0.0-3.0) Basophils (%) (Auto) 0.3 % (0.0-2.0) Sodium Level 138 MMOL/L (136-145) Potassium Level 3.1 MMOL/L (3.5-5.1) L Chloride Level 104 MMOL/L (98-107) Carbon Dioxide Level 23 MMOL/L (21-32) Blood Urea Nitrogen 5 mg/dL (7-18) L Creatinine 0.6 MG/DL (0.55-1.30) Estimat Glomerular Filtration Rate > 60 mL/min (>60) Glucose Level 93 MG/DL (74-106) Calcium Level 8.6 MG/DL (8.5-10.1) Total Bilirubin 0.7 MG/DL (0.2-1.0) Aspartate Amino Transf (AST/SGOT) 34 U/L (15-37) Alanine Aminotransferase (ALT/SGPT) 26 U/L (12-78) Alkaline Phosphatase 42 U/L (46-116) L Total Protein 7.1 G/DL (6.4-8.2) Albumin 2.9 G/DL (3.4-5.0) L Globulin 4.2 g/dL Albumin/Globulin Ratio 0.7 (1.0-2.7) L Free Thyroxine 1.13 NG/DL (0.76-1.46) Triiodothyonine (T3) Pending Free Triiodothyronine 1.0 pg/mL (2.3-4.2) L Coccidioides Antibody (Comp Fix) Pending West Nile Virus IgG Antibody Pending West Nile Virus IgM Antibody Pending Hepatitis A IgM Antibody Pending Hepatitis B Surface Antigen Pending Hepatitis B Core IgM Antibody Pending Hepatitis C Antibody Pending Q Fever Phase I IgG Antibody Pending Q Fever Phase II IgG Antibody Pending Rickettsia IgG Ab ([place] Mt Fever) Pending Rickettsia IgM Ab (Constantino Mt Fever) Pending TB Test (T-Spot) Pending TB Test Nil Control (T-Spot) Pending TB Test Panel A (T-Spot) Pending TB Test Panel B (T-Spot) Pending TB Test Positive Control (T-Spot) Pending Typhus Fever IgG Antibody Titer Pending Typhus Fever IgG Antibody Pending Typhus Fever IgM Antibody Titer Pending Typhus Fever IgM Antibody Pending Current Medications Medications (Trade) Dose Ordered Sig/Kandi Route PRN Reason Start Time Stop Time Status Last Admin Dose Admin Acetaminophen (Tylenol) 650 mg Q6H PRN ORAL Mild Pain/Temp > 100.5 02/28/19 07:45 03/30/19 07:44 03/01/19 00:31 Acyclovir 750 mg/ Sodium Chloride 275 ml @ 275 mls/hr Q8H IV 02/28/19 02:00 03/30/19 01:59 03/01/19 11:28 Ceftriaxone Sodium 2 gm/ Sodium Chloride 110 ml @ 220 mls/hr Q12HR@0600,1800 IVPB 02/28/19 06:00 03/07/19 05:59 03/01/19 05:21 Chlorhexidine Gluconate (Mickie-Hex 2%) 1 applic DAILY@2000 TOPIC 03/01/19 20:00 03/31/19 19:59 Dextrose (Dextrose 50%) 25 ml Q30M PRN IV Hypoglycemia 02/27/19 18:30 03/29/19 18:29 Dextrose (Dextrose 50%) 50 ml Q30M PRN IV Hypoglycemia 02/27/19 18:30 03/29/19 18:29 Docusate Sodium (Colace) 100 mg EVERY 12 HOURS ORAL 02/27/19 21:00 03/29/19 20:59 02/28/19 21:27 Doxycycline Hyclate 100 mg/ Dextrose 110 ml @ 110 mls/hr Q12HR IV 02/28/19 14:30 03/07/19 14:29 03/01/19 09:53 Heparin Sodium (Porcine) (Heparin 5000 units/ml) 5,000 units EVERY 12 HOURS SUBQ 02/27/19 21:00 03/29/19 20:59 02/28/19 21:31 Heparin Sodium/ Sodium Chloride (Heparin 1000 units/500ml Premix) 1,000 unit ONCE PRN IV PICC PLACEMENT 03/01/19 15:00 03/03/19 23:59 Lidocaine HCl (Xylocaine 1% 30ml) 30 ml ONCE PRN INJ PICC PLACEMENT 03/01/19 15:00 03/03/19 23:59 Ondansetron HCl (Zofran) 4 mg Q6H PRN IVP Nausea & Vomiting 02/27/19 18:30 03/29/19 18:29 Oseltamivir Phosphate (Tamiflu) 75 mg TWICE A DAY ORAL 02/28/19 18:00 03/05/19 17:59 Sodium Chloride 1,000 ml @ 100 mls/hr Q10H IVLG 02/27/19 19:19 03/29/19 19:18 03/01/19 12:50 Vancomycin HCl (Vanco rx to dose) 1 ea DAILY PRN MISC Per rx protocol 02/27/19 18:30 03/29/19 18:29 Vancomycin/Sodium Chloride 275 ml @ 137.5 mls/ hr Q8H IVPB 03/01/19 05:00 03/06/19 04:59 03/01/19 13:42 Alejandro Arellano MD Mar 01, 2019 16:08
--- NOTE | 2019-03-01 16:24 | NUR ---
Social Service Note Patient's sister Kiera Elena [phone]. Please contact her as the primary contact lens curve grinder. Nursing and aware.
--- NOTE | 2019-03-01 16:40 | NUR ---
NURSE NOTES: IR at bedside. PICC placement done by Dr. Newton. PICC line noted in right upper arm, with biopatch and clear dressing noted.
--- NOTE | 2019-03-01 16:46 | Diagnostic Imaging Report ---
Indications: Needs long-term IV access Technique: Procedure performed at bedside. Procedural timeout performed. Ultrasound confirms patent compressible right basilic vein. Total sterile technique, including sterile probe cover and sterile gel, sterile gloves, hand hygiene, hat, mask,, sterile gown, large sterile drape, and preparation with 2% chlorhexidine utilized. Local anesthesia with 1% lidocaine. Under real-time ultrasound guidance, puncture basilic vein using 21-gauge needle, passage 0.018 guidewire, exchange for 4 [place] peel-away sheath. 4 [place] Bard dual-lumen power PICC cut to 41 cm. It was inserted through the peel-away sheath. Peel-away sheath and guidewire removed. Catheter fixed to the skin. Both catheter ports aspirated and flushed. Patient tolerated procedure well, without immediate complication. Followup chest x-ray obtained, documents catheter tip position at the cavoatrial junction Impression: Successful bedside placement of right arm right arm PICC under sonographic guidance, as described above.
--- NOTE | 2019-03-01 17:22 | NUR ---
NURSE NOTES: Okay to use PICC line, all tubing and IV fluids changed per protocol
--- NOTE | 2019-03-01 17:48 | NUR ---
NURSE NOTES: Called and left a message for Dr Goldberg: pt had 13 beats of VTach during PICC line placement, now back to NSR. K level 3.1 this morning and being replaced with 40 MEQ per orders, req a mag level with AM labs
--- NOTE | 2019-03-01 17:51 | NUR ---
NURSE NOTES: Dr Goldberg returned call, mag level to be pulled with AM labs
--- NOTE | 2019-03-01 17:51 | NUR ---
NURSE NOTES: Dr Goldberg able to reach patients sister
--- NOTE | 2019-03-01 18:00 | NUR ---
NURSE NOTES: Patients sister Putu at bedside, droplet precautions observed
--- NOTE | 2019-03-01 18:51 | NUR ---
CASE MANAGEMENT: NOTE INTERQUAL MET
--- NOTE | 2019-03-01 19:31 | NUR ---
HAND-OFF: Report given to BARBARA Recinos.
--- NOTE | 2019-03-01 19:32 | NUR ---
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
[2019-03-01] MEDS: Dyna-Hex 2% Top Sol 2oz TOPIC SCH (20:14)
[2019-03-01 21:00] VITALS: BP 138/104
[2019-03-02] VITALS: BP 150/93
[2019-03-02] MEDS: ACYCLOVIR IV SCH ×3 (03:19→18:02)
[2019-03-02] MEDS: NS IV SCH ×3 (03:19→18:02)
[2019-03-02 04:00] VITALS: BP 134/94
[2019-03-02 04:28] LABS: BASOPHILS % (AUTO) 0.4 % (0.0-2.0); EOSINOPHILS % (AUTO) 0.2 % (0.0-3.0); HEMATOCRIT 34.4 % (37.0-47.0); HEMOGLOBIN 10.8 G/DL (12.0-16.0); LYMPHOCYTES % (AUTO) 12.5 % (20.0-45.0); MEAN CORPUSCULAR VOLUME 76 FL (80-99); MONOCYTES % (AUTO) 6.3 % (1.0-10.0); NEUTROPHILS % (AUTO) 80.5 % (45.0-75.0); PLATELET COUNT 276 K/UL (150-450); RED BLOOD COUNT 4.52 M/UL (4.20-5.40); RED CELL DISTRIBUTION WIDTH 14.7 % (11.6-14.8); WHITE BLOOD COUNT 10.1 K/UL (4.8-10.8)
[2019-03-02 04:41] LABS: ANION GAP 7 mmol/L (5-15); BLOOD UREA NITROGEN 5 mg/dL (7-18); CALCIUM 8.8 MG/DL (8.5-10.1); CARBON DIOXIDE 26 MMOL/L (21-32); CHLORIDE 107 MMOL/L (98-107); CREATININE 0.6 MG/DL (0.55-1.30); POTASSIUM 3.5 MMOL/L (3.5-5.1); SODIUM 140 MMOL/L (136-145)
[2019-03-02] MEDS: Vancomycin 1.5gm/NS Premix IVPB SCH ×4 (05:57→23:38)
[2019-03-02] MEDS: cefTRIAXone 2 GM in NS 110 ML IVPB SCH ×2 (06:00→17:16)
--- NOTE | 2019-03-02 07:10 | NUR ---
HAND-OFF: Report given to BARBARA Singleton.Patient stable.
--- NOTE | 2019-03-02 07:17 | NUR ---
NURSE NOTES: Received report from Grisel Paez RN. Observed patient in bed, asleep. On room air, no respiratory distress noted. PICC line noted on right upper arm with dry and intact dressing, IV fluids infusing at prescribed rate. No s/s of pain/discomfort at this time. Safety precautions in place, bed locked, alarmed, and in lowest position, side rails up x3, and call light within reach. Will continue with plan of care and monitor patient.
[2019-03-02 08:00] VITALS: BP 133/90
[2019-03-02] MEDS: Doxycycline Hyclate 100 MG in D5W 110 ML IV SCH ×2 (08:11→20:08)
[2019-03-02] MEDS: Oseltamivir 75mg cap ORAL SCH ×2 (08:26→17:58)
[2019-03-02] MEDS: Docusate 100mg cap ORAL SCH ×2 (08:26→20:08)
[2019-03-02] MEDS: Heparin 5000 units/ml inj SUBQ SCH ×2 (09:00→20:08)
--- NOTE | 2019-03-02 09:56 | NUR ---
*-* INSURANCE *-* ALL AVAILABLE CLINICALS HAVE BEEN FAXED TO: [facility] NO PROJECT MANAGER FINANCE ASSIGNED AT THIS TIME, PLEASE FAX THE REVIEW/CLINICAL P- [phone] / [phone] F- [phone]...REVIEW/CLINICAL
[2019-03-02 11:34] VITALS: BP 142/94
--- NOTE | 2019-03-02 13:10 | Infectious Diseases Prog Note ---
Assessment/Plan Assessment/Plan A) 1) likely viral meningitis - rule out HSV/HZV, rule WNV, influenza negative, rule out other 2) rash, ams 3) pmh - ? 4) allergies - nkda P) 1) vancomycin, ceftriaxone, acyclovir, doxycycline, tamiflu 2) f/u on cultures, labs and serology, f/u on csf 3) clinically better, more alert, moves extremities 4) will f/u Subjective Constitutional: Reports: other - more alert; Denies: fever HEENT: Denies: congestion Respiratory: Denies: shortness of breath Cardiovascular: Denies: chest pain Gastrointestinal/Abdominal: Denies: nausea, vomiting, diarrhea Genitourinary: Reports: other - no espino Neurologic: Reports: other - more alert, able to move extremities Psychiatric: Reports: depression Allergies: Coded Allergies: No Known Allergies (Unverified , 02/27/19) Objective Vital Signs Last 24 Hour Vital Signs Date Time Temp Pulse Resp B/P (MAP) Pulse Ox O2 Delivery O2 Flow Rate FiO2 03/02/19 12:00 Room Air 03/02/19 11:34 77 03/02/19 11:34 98.2 77 20 142/94 (110) 98 03/02/19 09:17 85 03/02/19 08:00 Room Air 03/02/19 08:00 97.2 87 18 133/90 (104) 99 03/02/19 04:54 88 03/02/19 04:00 Room Air 03/02/19 04:00 97.9 76 32 134/94 (107) 93 03/02/19 00:00 Room Air 03/02/19 00:00 98.1 80 32 150/93 (112) 94 03/01/19 23:34 83 03/01/19 21:00 98.1 100 24 138/104 (115) 95 03/01/19 21:00 Room Air 03/01/19 19:02 91 03/01/19 16:00 Room Air 03/01/19 16:00 99.0 90 21 145/93 (110) 98 03/01/19 15:23 86 03/01/19 13:19 79 Height (Feet): 5 Height (Inches): 7.00 Weight (Pounds): 220 General Appearance: no acute distress HEENT: normocephalic, atraumatic, anicteric Respiratory/Chest: lungs clear, normal breath sounds, no respiratory distress Cardiovascular: normal rate, regular rhythm Abdomen: normal bowel sounds, soft, non tender, no organomegaly Skin: rash - stable Microbiology Date/Time Source Procedure Growth Status 02/27/19 14:15 Blood Blood Culture - Preliminary NO GROWTH AFTER 48 HOURS Resulted 02/27/19 14:00 Blood Blood Culture - Preliminary NO GROWTH AFTER 48 HOURS Resulted 02/27/19 19:04 Cerebral Spinal Fluid Gram Stain - Final Resulted 02/27/19 19:04 Cerebral Spinal Fluid CSF Culture - Preliminary NO GROWTH AFTER 48 HOURS Resulted 02/27/19 14:45 Nasal Nares - Final Complete 02/27/19 14:45 Nasal Nares - Final Complete Laboratory Tests Test 03/01/19 16:00 03/02/19 04:00 Cryptococcus Antigen Pending White Blood Count 10.1 K/UL (4.8-10.8) Red Blood Count 4.52 M/UL (4.20-5.40) Hemoglobin 10.8 G/DL (12.0-16.0) L Hematocrit 34.4 % (37.0-47.0) L Mean Corpuscular Volume 76 FL (80-99) L Mean Corpuscular Hemoglobin 23.8 PG (27.0-31.0) L Mean Corpuscular Hemoglobin Concent 31.3 G/DL (32.0-36.0) L Red Cell Distribution Width 14.7 % (11.6-14.8) Platelet Count 276 K/UL (150-450) Mean Platelet Volume 5.8 FL (6.5-10.1) L Neutrophils (%) (Auto) 80.5 % (45.0-75.0) H Lymphocytes (%) (Auto) 12.5 % (20.0-45.0) L Monocytes (%) (Auto) 6.3 % (1.0-10.0) Eosinophils (%) (Auto) 0.2 % (0.0-3.0) Basophils (%) (Auto) 0.4 % (0.0-2.0) Sodium Level 140 MMOL/L (136-145) Potassium Level 3.5 MMOL/L (3.5-5.1) Chloride Level 107 MMOL/L (98-107) Carbon Dioxide Level 26 MMOL/L (21-32) Anion Gap 7 mmol/L (5-15) Blood Urea Nitrogen 5 mg/dL (7-18) L Creatinine 0.6 MG/DL (0.55-1.30) Estimat Glomerular Filtration Rate > 60 mL/min (>60) Glucose Level 89 MG/DL (74-106) Calcium Level 8.8 MG/DL (8.5-10.1) Magnesium Level 1.8 MG/DL (1.8-2.4) Vancomycin Level Trough 8.1 ug/mL (5.0-12.0) Current Medications Medications (Trade) Dose Ordered Sig/Kandi Route PRN Reason Start Time Stop Time Status Last Admin Dose Admin Acetaminophen (Tylenol) 650 mg Q6H PRN ORAL Mild Pain/Temp > 100.5 02/28/19 07:45 03/30/19 07:44 03/01/19 00:31 Acyclovir 750 mg/ Sodium Chloride 275 ml @ 275 mls/hr Q8H IV 02/28/19 02:00 03/30/19 01:59 03/02/19 09:56 Ceftriaxone Sodium 2 gm/ Sodium Chloride 110 ml @ 220 mls/hr Q12HR@0600,1800 IVPB 02/28/19 06:00 03/07/19 05:59 03/02/19 06:00 Chlorhexidine Gluconate (Mickie-Hex 2%) 1 applic DAILY@2000 TOPIC 03/01/19 20:00 03/31/19 19:59 03/01/19 20:14 Dextrose (Dextrose 50%) 25 ml Q30M PRN IV Hypoglycemia 02/27/19 18:30 03/29/19 18:29 Dextrose (Dextrose 50%) 50 ml Q30M PRN IV Hypoglycemia 02/27/19 18:30 03/29/19 18:29 Docusate Sodium (Colace) 100 mg EVERY 12 HOURS ORAL 02/27/19 21:00 03/29/19 20:59 02/28/19 21:27 Doxycycline Hyclate 100 mg/ Dextrose 110 ml @ 110 mls/hr Q12HR IV 02/28/19 14:30 03/07/19 14:29 03/02/19 08:11 Heparin Sodium (Porcine) (Heparin 5000 units/ml) 5,000 units EVERY 12 HOURS SUBQ 02/27/19 21:00 03/29/19 20:59 02/28/19 21:31 Heparin Sodium/ Sodium Chloride (Heparin 1000 units/500ml Premix) 1,000 unit ONCE PRN IV PICC PLACEMENT 03/01/19 15:00 03/03/19 23:59 Lidocaine HCl (Xylocaine 1% 30ml) 30 ml ONCE PRN INJ PICC PLACEMENT 03/01/19 15:00 03/03/19 23:59 Ondansetron HCl (Zofran) 4 mg Q6H PRN IVP Nausea & Vomiting 02/27/19 18:30 03/29/19 18:29 Oseltamivir Phosphate (Tamiflu) 75 mg TWICE A DAY ORAL 02/28/19 18:00 03/05/19 17:59 Sodium Chloride 1,000 ml @ 100 mls/hr Q10H IVLG 02/27/19 19:19 03/29/19 19:18 03/02/19 08:12 Vancomycin HCl (Vanco rx to dose) 1 ea DAILY PRN MISC Per rx protocol 02/27/19 18:30 03/29/19 18:29 Vancomycin/Sodium Chloride 275 ml @ 137.5 mls/ hr Q6H IVPB 03/02/19 06:00 03/06/19 04:59 03/02/19 11:35 Alejandro Arellano MD Mar 02, 2019 13:10
--- NOTE | 2019-03-02 13:48 | NUR ---
CASE MANAGEMENT:REVIEW 23YR OLD FEMALE BIBA CC: FEVER AND HEADACHE. FEVER 102.5. AMS SI: ACUTE FEBRILE ILLNESS. MENINGITIS 102.5 102 16 124/81 99% ON RA IS: 2L NS BOLUS IV ROCEPHIN X1 TYLENOL PO X1 K-DUR 40MEQ PO BLOOD CX CXR CT HEAD : TO STEP DOWN UNIT
--- NOTE | 2019-03-02 14:08 | NUR ---
CASE MANAGEMENT:REVIEW 02/28/19 SI: LIKELY VIRAL MENINGITIS INFECTIOUS ENCEPHALOPATHY 101.2 92 39 153/92 98% ON RA WBC+13.4 IS: IV VANCOMYCIN Q8HRS IV DOXYCYCLINE Q12 IV ROCEPHIN Q12 IV ACYCLOVIR Q8HR IVF@100/HR HEPARIN SQ Q12 TAMIFLU PO BID : STEP DOWN UNIT PLAN: IV ANTIBIOTICS ISOLATION
--- NOTE | 2019-03-02 15:08 | NUR ---
CASE MANAGEMENT:REVIEW 03/01 SI: LIKELY VIRAL MENINGITIS INFECTIOUS ENCEPHALOPATHY 97.0 89 20 136/83 100% ON RA WBC+13.2 K-3.1 IS: IV KCL Q1HRS X2 IV VANCOMYCIN Q8HRS IV DOXYCYCLINE Q12 IV ROCEPHIN Q12 IV ACYCLOVIR Q8HR IVF@100/HR HEPARIN SQ Q12 TAMIFLU PO BID : STEP DOWN UNIT PLAN: IV ANTIBIOTICS ISOLATION PICC LINE PLACEMENT F/U ON ~ CRYPTOCOCCUS ANTIGEN, FUNGUS(MYCOLOGY),RICKETTSIAL IgG, WEST NILE VIRUS,TSPOT,HIV 03/02/19 SI: LIKELY VIRAL MENINGITIS INFECTIOUS ENCEPHALOPATHY 98.2 61 24 140/92 98% ON RA H/H-10.8/34.4 IS: IV VANCOMYCIN Q6HRS (FREQUENCY INCREASED) IV DOXYCYCLINE Q12 IV ROCEPHIN Q12 IV ACYCLOVIR Q8HR IVF@100/HR HEPARIN SQ Q12 TAMIFLU PO BID : STEP DOWN UNIT PLAN: IV ANTIBIOTICS ISOLATION PICC LINE PLACEMENT F/U ON ~ CRYPTOCOCCUS ANTIGEN, FUNGUS(MYCOLOGY), RICKETTSIAL IgG, WEST NILE VIRUS,TSPOT,HIV
[2019-03-02 16:00] VITALS: BP 131/94
--- NOTE | 2019-03-02 19:08 | NUR ---
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
--- NOTE | 2019-03-02 19:15 | NUR ---
HAND-OFF: Report given to Grisel Crane RN. Patient in stable condition. Sister, Putu at bedside at the moment. Patient visitor authorization form given by security. Charge nurse and receiving nurse informed and made aware.
[2019-03-02 20:00] VITALS: BP 130/90
[2019-03-02] MEDS: Dyna-Hex 2% Top Sol 2oz TOPIC SCH (20:08)
--- NOTE | 2019-03-02 21:02 | General Progress Note ---
Assessment/Plan Problem List: (1) Maculopapular rash, generalized ICD Codes: R21 - Rash and other nonspecific skin eruption SNOMED: 874989957 (2) Meningitis ICD Codes: G03.9 - Meningitis, unspecified SNOMED: 6446566 (3) Acute febrile illness ICD Codes: R50.9 - Fever, unspecified SNOMED: 601562312 (4) Fever ICD Codes: R50.9 - Fever, unspecified SNOMED: 396232346 Status: progressing Assessment/Plan: Trenton Elena is a 23 yo woman with no known PMH who presented with fever and AMS , found with likely viral meningitis. Suspect viral meningitis, infectious encephalopathy > CT head overall unremarkable > Afebrile in past 24 hours - Severely altered mentation - CSF notable for 45 WBC with 96% lymphocytes, 54 glucose, elevated protein 140. Gram stain negative and bacterial culture negative thus far - ID consult Dr. Arellano, recs appreciated - Continue ceftriaxone 2gm IV q12hrs, vancomycin 1gm IV q8hrs, and acyclovir 750mg IV q8hrs, doxycycline 100mg IV q12hrs and tamiflu 75mg BID - S/p decadron x 1 in ED. CSF studies not consistent with strep meningitis, hold off on further steroids - F/U further studies pending including WNV, HSV, VZV, TB spot, rickettsial, hepatitis, HIV, crypto, coccidio - Tylenol PRN fever Hypokalemia - Replace as needed Nausea/vomiting - Zofran PRN FEN IVF NS @100cc/hr until able to tolerate PO 2/2 mental status Regular diet when awake but otherwise NPO Heparin subq DVT PPX Discussed with RN. I spent 39 minutes on this patient's care, including >50% on counseling and/or coordination of care. Subjective Date patient seen: Mar 02, 2019 ROS Limited/Unobtainable: Yes Allergies: Coded Allergies: No Known Allergies (Unverified , 02/27/19) Subjective No acute events overnight per nursing Meningitis: mental status has stayed roughly the same per nursing. Patient alert but minimally responsive. Per ID patient has improved. Denies headaches, neck stiffness, fevers or chills. Unable to participate in further history. Patient minmally responsive. Objective Last 24 Hour Vital Signs Date Time Temp Pulse Resp B/P (MAP) Pulse Ox O2 Delivery O2 Flow Rate FiO2 03/02/19 17:24 81 03/02/19 16:00 98.2 82 18 131/94 (106) 100 03/02/19 16:00 Room Air 03/02/19 12:00 Room Air 03/02/19 11:34 77 03/02/19 11:34 98.2 77 20 142/94 (110) 98 03/02/19 09:17 85 03/02/19 08:00 Room Air 03/02/19 08:00 97.2 87 18 133/90 (104) 99 03/02/19 04:54 88 03/02/19 04:00 Room Air 03/02/19 04:00 97.9 76 32 134/94 (107) 93 03/02/19 00:00 Room Air 03/02/19 00:00 98.1 80 32 150/93 (112) 94 03/01/19 23:34 83 03/01/19 21:00 98.1 100 24 138/104 (115) 95 03/01/19 21:00 Room Air Intake and Output 03/01/19 03/02/19 19:00 07:00 Intake Total 1250.33 ml 1714.375 ml Balance 1250.33 ml 1714.375 ml Intake Oral 0 ml 0 ml IV Total 1250.33 ml 1714.375 ml # Voids 3 Laboratory Tests 03/02/19 04:00: White Blood Count 10.1, Red Blood Count 4.52, Hemoglobin 10.8L, Hematocrit 34.4L , Mean Corpuscular Volume 76L, Mean Corpuscular Hemoglobin 23.8L, Mean Corpuscular Hemoglobin Concent 31.3L, Red Cell Distribution Width 14.7, Platelet Count 276, Mean Platelet Volume 5.8L, Neutrophils (%) (Auto) 80.5H, Lymphocytes (%) (Auto) 12.5L, Monocytes (%) (Auto) 6.3, Eosinophils (%) (Auto) 0.2, Basophils (%) (Auto) 0.4, Sodium Level 140, Potassium Level 3.5, Chloride Level 107, Carbon Dioxide Level 26, Anion Gap 7, Blood Urea Nitrogen 5L, Creatinine 0.6, Estimat Glomerular Filtration Rate > 60, Glucose Level 89, Calcium Level 8.8, Magnesium Level 1.8, Vancomycin Level Trough 8.1 Height (Feet): 5 Height (Inches): 7.00 Weight (Pounds): 220 General Appearance: WD/WN, no apparent distress, alert, lethargic, confused EENT: PERRL/EOMI Neck: non-tender, normal alignment, supple Cardiovascular: normal peripheral pulses, normal rate, regular rhythm, no JVD Respiratory/Chest: chest wall non-tender, lungs clear Abdomen: normal bowel sounds, non tender, soft Extremities: other - No LE edema bilaterally Neurologic: cataract lens generator II-XII grossly normal, no motor/sensory deficits, alert, other - can follow simple commands. 4/5 muscle strength in UE and LE bilaterally. Sensation intact to light touch in UE and LE bilatearlly Skin: other - maculopapular rash on upper extremities and lower extremities bilaterally Surinder Lester D.O. Mar 02, 2019 21:02
[2019-03-03] VITALS: BP 123/70
[2019-03-03] MEDS: ACYCLOVIR IV SCH ×3 (01:22→18:18)
[2019-03-03] MEDS: NS IV SCH ×3 (01:22→18:18)
[2019-03-03 04:00] VITALS: BP 147/90
[2019-03-03 05:25] LABS: BASOPHILS % (AUTO) 0.5 % (0.0-2.0); EOSINOPHILS % (AUTO) 1.7 % (0.0-3.0); HEMATOCRIT 33.7 % (37.0-47.0); HEMOGLOBIN 10.6 G/DL (12.0-16.0); LYMPHOCYTES % (AUTO) 14.1 % (20.0-45.0); MEAN CORPUSCULAR VOLUME 76 FL (80-99); MONOCYTES % (AUTO) 7.3 % (1.0-10.0); NEUTROPHILS % (AUTO) 76.4 % (45.0-75.0); PLATELET COUNT 299 K/UL (150-450); RED BLOOD COUNT 4.41 M/UL (4.20-5.40); WHITE BLOOD COUNT 8.9 K/UL (4.8-10.8)
[2019-03-03 05:40] LABS: ALANINE AMINOTRANSFERASE 28 U/L (12-78); ALBUMIN 2.7 G/DL (3.4-5.0); ALBUMIN/GLOBULIN RATIO 0.7 (1.0-2.7); ALKALINE PHOSPHATASE 49 U/L (46-116); ANION GAP 8 mmol/L (5-15); ASPARTATE AMINO TRANSFERASE 18 U/L (15-37); BILIRUBIN,TOTAL 0.5 MG/DL (0.2-1.0); BLOOD UREA NITROGEN 4 mg/dL (7-18); CALCIUM 8.6 MG/DL (8.5-10.1); CARBON DIOXIDE 27 MMOL/L (21-32); CHLORIDE 106 MMOL/L (98-107); CREATININE 0.6 MG/DL (0.55-1.30); POTASSIUM 3.2 MMOL/L (3.5-5.1); SODIUM 141 MMOL/L (136-145)
[2019-03-03] MEDS: cefTRIAXone 2 GM in NS 110 ML IVPB SCH (05:41)
[2019-03-03 05:56] LABS: PHOSPHORUS 3.9 MG/DL (2.5-4.9)
--- NOTE | 2019-03-03 06:32 | NUR ---
NURSE NOTES: Called [facility] notified regarding pt's socratesrough 25.5,received an order from greg Waters to administer 0600 dose d/t blood was withdraw earlier than scheduled.will scheduled next socratesrough
[2019-03-03] MEDS: Vancomycin 1.5gm/NS Premix IVPB SCH (06:47)
--- NOTE | 2019-03-03 06:58 | NUR ---
NURSE NOTES: Called and left massage regarding lab results K 3.2 Mg 1.5 and Albumin 2.7.Waiting for Dr respond and new orders.Next shift will endorse.
--- NOTE | 2019-03-03 07:22 | NUR ---
NURSE NOTES: received an order from MD for Mg 4 mg IV and K 40 mEqIV
--- NOTE | 2019-03-03 07:23 | NUR ---
HAND-OFF: Report given to BARBARA Rizvi.Patient stable.
[2019-03-03 08:00] VITALS: BP 144/92
--- NOTE | 2019-03-03 08:28 | NUR ---
NURSE NOTES: received pt in the bed, lethargic, vital signs stable, no SOB, skin warm and dry to touch, PICC line on RT upper arm with NS at 100cc, dressing dry and intact, yellow clear urine, K 3.2, MAG 1.5, aware, bed in low position, call light within reach.
[2019-03-03] MEDS: Docusate 100mg cap ORAL SCH ×2 (09:00→20:15)
[2019-03-03] MEDS: Oseltamivir 75mg cap ORAL SCH ×2 (09:00→18:28)
[2019-03-03] MEDS: Doxycycline Hyclate 100 MG in D5W 110 ML IV SCH ×2 (09:22→20:15)
[2019-03-03] MEDS: Heparin 5000 units/ml inj SUBQ SCH ×2 (09:23→20:17)
--- NOTE | 2019-03-03 10:35 | NUR ---
CASE MANAGEMENT:REVIEW 03/03/19 SI: LIKELY VIRAL MENINGITIS R/O HSV/HZV. R/O WNV 98.9 91 86 27 144/92 98% ON RA K-3.2 MAG-1.5 IS: IV KCL Q2HRS X2 IV MAG SULFATE Q1HRS X4 IV VANCOMYCIN Q6HRS IV DOXYCYCLINE Q12 IV ROCEPHIN Q24 IV ACYCLOVIR Q8HRS [id number] TAMIFLU PO BID : STEP DOWN UNIT
[2019-03-03 12:00] VITALS: BP 148/98
--- NOTE | 2019-03-03 12:00 | NUR ---
NURSE NOTES: vital signs stable, more awake, 4gm Magnesium IV given as ordered,no co pain, continue monitoring.
--- NOTE | 2019-03-03 12:45 | CDS Physician Query ---
Clarification is required for compliance, coding accuracy, and to reflect severity of illness for this patient Dear Alejandro Tavarez MD Date: 03/03/2019 CDS: [facility] According to the clinical indications above, please indicate below the condition Pt has: Meningitis Vitals: HR: 102/min; Temp: 102 F; Tx: IV VANCOMYCIN, IV CEFTRIAXONE; IV ACYCLOVIR; IV DOXYCYCLINE PHYSICIAN RESPONSE: Sepsis SIRS SIRS with organ dysfunction Septic Shock Not applicable Other: Present on Admission: Yes No Clinically Undetermined Physician signature Date Please also document in your Progress Notes and/or Discharge Summary and indicate if the condition was present on admission. ROQUED
[2019-03-03] MEDS ORDERED: Vancomycin 1.25 GM in NS 275 ML IVPB SCH (14:00)
[2019-03-03] MEDS: D5 1/2NS w/KCl 20mEq 1,000 ML IV SCH ×2 (15:27→23:16)
--- NOTE | 2019-03-03 15:51 | General Progress Note ---
Assessment/Plan Problem List: (1) Maculopapular rash, generalized ICD Codes: R21 - Rash and other nonspecific skin eruption SNOMED: 928980113 (2) Meningitis ICD Codes: G03.9 - Meningitis, unspecified SNOMED: 7390737 (3) Acute febrile illness ICD Codes: R50.9 - Fever, unspecified SNOMED: 862613040 (4) Fever ICD Codes: R50.9 - Fever, unspecified SNOMED: 697303851 Status: progressing Assessment/Plan: Trenton Elena is a 23 yo woman with no known PMH who presented with fever and AMS , found with likely viral meningitis. Suspect viral meningitis, infectious encephalopathy > CT head overall unremarkable > Afebrile in past 24 hours > Negative: HIV, hepatitis panel - Severely altered mentation - CSF notable for 45 WBC with 96% lymphocytes, 54 glucose, elevated protein 140. Gram stain negative and bacterial culture negative thus far - ID consult bri Tavarez appreciated -Per ID: Discontinue ceftriaxone and vancomycin (4 days) Continue acyclovir 750mg IV q8hrs, doxycycline 100mg IV q12hrs and tamiflu 75mg BID - S/p decadron x 1 in ED. CSF studies not consistent with strep meningitis, hold off on further steroids - F/U further studies pending including WNV, HSV, VZV, TB spot, rickettsial, hepatitis, crypto, coccidio - Tylenol PRN fever Hypokalemia - Replace as needed Nausea/vomiting - Zofran PRN FEN D5 1/2 NS @ 125cc/hr with 20KCL. May need NG tube Regular diet when awake but otherwise NPO Heparin subq DVT PPX Discussed with RN and Infectious Disease. I spent 38 minutes on this patient's care, including >50% on counseling and/or coordination of care. Subjective Constitutional: Denies: chills, diaphoresis, fever, malaise, weakness, other HEENT: Denies: eye pain, blurred vision, tearing, double vision, ear pain, ear discharge, nose pain, nose congestion, throat pain, throat swelling, mouth pain , mouth swelling, other Cardiovascular: Denies: chest pain, edema, irregular heart rate, lightheadedness, palpitations, syncope, other Respiratory: Denies: cough, orthopnea, shortness of breath, SOB with excertion , SOB at rest, sputum, stridor, wheezing, other Gastrointestinal/Abdominal: Denies: abdomen distended, abdominal pain, black stools, tarry stools, blood in stool, constipated, diarrhea, difficulty swallowing, nausea, poor appetite, poor fluid intake, rectal bleeding, vomiting , other Genitourinary: Denies: burning, discharge, frequency, flank pain, hematuria, incontinence, pain, urgency, other Neurologic/Psychiatric: Denies: anxiety, depressed, emotional problems, headache, numbness, paresthesia, pre-existing deficit, seizure, tingling, tremors, weakness, other Endocrine: Denies: excessive sweating, flushing, intolerance to cold, intolerance to heat, increased hunger, increased thirst, increased urine, unexplained weight gain, unexplained weight loss, other Hematologic/Lymphatic: Denies: anemia, easy bleeding, easy bruising, other Allergies: Coded Allergies: No Known Allergies (Unverified , 02/27/19) Subjective No acute events overnight per nursing. Continues to be lethargic Meningitis: mental status has stayed roughly the same since yesterday. Patient alert and understands questions. Denies headaches, neck stiffness, fevers or chills. Objective Last 24 Hour Vital Signs Date Time Temp Pulse Resp B/P (MAP) Pulse Ox O2 Delivery O2 Flow Rate FiO2 03/03/19 12:00 102 03/03/19 12:00 98.9 100 25 148/98 (115) 97 03/03/19 12:00 Room Air 03/03/19 08:00 98.9 91 27 144/92 (109) 98 03/03/19 08:00 Room Air 03/03/19 08:00 86 03/03/19 04:00 Room Air 03/03/19 04:00 97.9 88 28 147/90 (109) 97 03/03/19 03:25 87 03/03/19 00:00 Room Air 03/03/19 00:00 97.9 86 24 123/70 (87) 97 03/02/19 23:36 97 03/02/19 20:00 98.1 93 20 130/90 (103) 94 03/02/19 20:00 Room Air 03/02/19 19:29 95 03/02/19 17:24 81 03/02/19 16:00 98.2 82 18 131/94 (106) 100 03/02/19 16:00 Room Air Intake and Output 03/02/19 03/03/19 19:00 07:00 Intake Total 1465.01186 ml 1939.0 ml Balance 1465.66696 ml 1939.0 ml IV Total 1465.14495 ml 1939.0 ml # Voids 3 Laboratory Tests 03/03/19 03:30: White Blood Count 8.9, Red Blood Count 4.41, Hemoglobin 10.6L, Hematocrit 33.7L , Mean Corpuscular Volume 76L, Mean Corpuscular Hemoglobin 24.0L, Mean Corpuscular Hemoglobin Concent 31.3L, Red Cell Distribution Width 15.0H, Platelet Count 299, Mean Platelet Volume 4.7L, Neutrophils (%) (Auto) 76.4H, Lymphocytes (%) (Auto) 14.1L, Monocytes (%) (Auto) 7.3, Eosinophils (%) (Auto) 1.7, Basophils (%) (Auto) 0.5, Sodium Level 141, Potassium Level 3.2L, Chloride Level 106, Carbon Dioxide Level 27, Anion Gap 8, Blood Urea Nitrogen 4L, Creatinine 0.6, Estimat Glomerular Filtration Rate > 60, Glucose Level 79, Calcium Level 8.6, Phosphorus Level 3.9, Magnesium Level 1.5L, Total Bilirubin 0.5, Aspartate Amino Transf (AST/SGOT) 18, Alanine Aminotransferase (ALT/SGPT) 28, Alkaline Phosphatase 49, Total Protein 6.7, Albumin 2.7L, Globulin 4.0, Albumin/Globulin Ratio 0.7L, Vancomycin Level Trough 25.5H 03/03/19 10:50: Vancomycin Level Trough 21.2H Height (Feet): 5 Height (Inches): 7.00 Weight (Pounds): 228 General Appearance: WD/WN, no apparent distress, alert, lethargic EENT: PERRL/EOMI Neck: non-tender, normal alignment, supple Cardiovascular: normal peripheral pulses, normal rate, regular rhythm, no JVD Respiratory/Chest: chest wall non-tender, lungs clear, normal breath sounds Abdomen: normal bowel sounds, non tender, soft, no mass Extremities: normal range of motion, other - no LE edema bilaterally 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 Mar 03, 2019 15:51
[2019-03-03 16:00] VITALS: BP 136/85
[2019-03-03] MEDS ORDERED: NS 275ml ONE (16:09)
[2019-03-03] MEDS ORDERED: Tubing IV Secondary IV ONE (16:09)
--- NOTE | 2019-03-03 17:24 | Infectious Diseases Prog Note ---
Assessment/Plan Assessment/Plan A) 1) likely viral meningitis - rule out HSV/HZV, rule WNV, rule out other, doubt bacterial meningitis, hiv negative 2) rash, ams - ? rickettsial infection 3) pmh - negative 4) allergies - nkda, sh-negative, fh-nc, mar noted 5) d/w RN P) 1) acyclovir iv - day # 3, tamiflu - day # 3, doxycycline - day # 3, discontinue ceftriaxone and vancomycin 2) f/u on CSF studies and serology 3) clinically improved, more alert, moves extremities 4) d/w Dr. Lester 5) will f/u Subjective Constitutional: Denies: fever HEENT: Denies: congestion Respiratory: Denies: shortness of breath Cardiovascular: Denies: chest pain Gastrointestinal/Abdominal: Denies: nausea Genitourinary: Reports: other - no espino Neurologic: Denies: headache Psychiatric: Denies: depression Skin: Denies: rash Hematologic: Denies: bleeding Musculoskeletal: Denies: pain Allergies: Coded Allergies: No Known Allergies (Unverified , 02/27/19) Objective Vital Signs Last 24 Hour Vital Signs Date Time Temp Pulse Resp B/P (MAP) Pulse Ox O2 Delivery O2 Flow Rate FiO2 03/03/19 16:00 90 03/03/19 16:00 98.6 87 22 136/85 (102) 99 03/03/19 16:00 Room Air 03/03/19 12:00 102 03/03/19 12:00 98.9 100 25 148/98 (115) 97 03/03/19 12:00 Room Air 03/03/19 08:00 98.9 91 27 144/92 (109) 98 03/03/19 08:00 Room Air 03/03/19 08:00 86 03/03/19 04:00 Room Air 03/03/19 04:00 97.9 88 28 147/90 (109) 97 03/03/19 03:25 87 03/03/19 00:00 Room Air 03/03/19 00:00 97.9 86 24 123/70 (87) 97 03/02/19 23:36 97 03/02/19 20:00 98.1 93 20 130/90 (103) 94 03/02/19 20:00 Room Air 03/02/19 19:29 95 03/02/19 17:24 81 Height (Feet): 5 Height (Inches): 7.00 Weight (Pounds): 228 HEENT: normocephalic, atraumatic, anicteric Respiratory/Chest: lungs clear, normal breath sounds, no respiratory distress, no accessory muscle use Cardiovascular: normal rate, regular rhythm, no gallop/murmur, no JVD Abdomen: normal bowel sounds, soft, non tender, no organomegaly, non distended Genitourinary: other - no espino Extremities: no cyanosis Skin: no rash 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, alert, oriented x 3, responsive Lymphatic: no neck adenopathy Musculoskeletal: no effusion Objective CT head - negative, report noted Chest x-ray - negative, report noted Microbiology Date/Time Source Procedure Growth Status 02/27/19 14:15 Blood Blood Culture - Preliminary NO GROWTH AFTER 72 HOURS Resulted 02/27/19 19:04 Cerebral Spinal Fluid Gram Stain - Final Resulted 02/27/19 19:04 Cerebral Spinal Fluid CSF Culture - Preliminary NO GROWTH AFTER 72 HOURS Resulted 02/27/19 14:45 Nasal Nares - Final Complete 02/27/19 14:45 Nasal Nares - Final Complete serology - noted/pending Laboratory Tests Test 03/03/19 03:30 03/03/19 10:50 White Blood Count 8.9 K/UL (4.8-10.8) Red Blood Count 4.41 M/UL (4.20-5.40) Hemoglobin 10.6 G/DL (12.0-16.0) L Hematocrit 33.7 % (37.0-47.0) L Mean Corpuscular Volume 76 FL (80-99) L Mean Corpuscular Hemoglobin 24.0 PG (27.0-31.0) L Mean Corpuscular Hemoglobin Concent 31.3 G/DL (32.0-36.0) L Red Cell Distribution Width 15.0 % (11.6-14.8) H Platelet Count 299 K/UL (150-450) Mean Platelet Volume 4.7 FL (6.5-10.1) L Neutrophils (%) (Auto) 76.4 % (45.0-75.0) H Lymphocytes (%) (Auto) 14.1 % (20.0-45.0) L Monocytes (%) (Auto) 7.3 % (1.0-10.0) Eosinophils (%) (Auto) 1.7 % (0.0-3.0) Basophils (%) (Auto) 0.5 % (0.0-2.0) Sodium Level 141 MMOL/L (136-145) Potassium Level 3.2 MMOL/L (3.5-5.1) L Chloride Level 106 MMOL/L (98-107) Carbon Dioxide Level 27 MMOL/L (21-32) Anion Gap 8 mmol/L (5-15) Blood Urea Nitrogen 4 mg/dL (7-18) L Creatinine 0.6 MG/DL (0.55-1.30) Estimat Glomerular Filtration Rate > 60 mL/min (>60) Glucose Level 79 MG/DL (74-106) Calcium Level 8.6 MG/DL (8.5-10.1) Phosphorus Level 3.9 MG/DL (2.5-4.9) Magnesium Level 1.5 MG/DL (1.8-2.4) L Total Bilirubin 0.5 MG/DL (0.2-1.0) Aspartate Amino Transf (AST/SGOT) 18 U/L (15-37) Alanine Aminotransferase (ALT/SGPT) 28 U/L (12-78) Alkaline Phosphatase 49 U/L (46-116) Total Protein 6.7 G/DL (6.4-8.2) Albumin 2.7 G/DL (3.4-5.0) L Globulin 4.0 g/dL Albumin/Globulin Ratio 0.7 (1.0-2.7) L Vancomycin Level Trough 25.5 ug/mL (5.0-12.0) H 21.2 ug/mL (5.0-12.0) H Current Medications Medications (Trade) Dose Ordered Sig/Kandi Route PRN Reason Start Time Stop Time Status Last Admin Dose Admin Acetaminophen (Tylenol) 650 mg Q6H PRN ORAL Mild Pain/Temp > 100.5 02/28/19 07:45 03/30/19 07:44 03/01/19 00:31 Acyclovir 750 mg/ Sodium Chloride 275 ml @ 275 mls/hr Q8H IV 02/28/19 02:00 03/30/19 01:59 03/03/19 10:37 Chlorhexidine Gluconate (Mickie-Hex 2%) 1 applic DAILY@2000 TOPIC 03/01/19 20:00 03/31/19 19:59 03/02/19 20:08 Dextrose (Dextrose 50%) 25 ml Q30M PRN IV Hypoglycemia 02/27/19 18:30 03/29/19 18:29 Dextrose (Dextrose 50%) 50 ml Q30M PRN IV Hypoglycemia 02/27/19 18:30 03/29/19 18:29 Dextrose/ Electrolytes 1,000 ml @ 125 mls/hr Q8H IV 03/03/19 15:00 04/02/19 14:59 03/03/19 15:27 Docusate Sodium (Colace) 100 mg EVERY 12 HOURS ORAL 02/27/19 21:00 03/29/19 20:59 02/28/19 21:27 Doxycycline Hyclate 100 mg/ Dextrose 110 ml @ 110 mls/hr Q12HR IV 02/28/19 14:30 03/07/19 14:29 03/03/19 09:22 Heparin Sodium (Porcine) (Heparin 5000 units/ml) 5,000 units EVERY 12 HOURS SUBQ 02/27/19 21:00 03/29/19 20:59 03/03/19 09:23 Heparin Sodium/ Sodium Chloride (Heparin 1000 units/500ml Premix) 1,000 unit ONCE PRN IV PICC PLACEMENT 03/01/19 15:00 03/03/19 23:59 Lidocaine HCl (Xylocaine 1% 30ml) 30 ml ONCE PRN INJ PICC PLACEMENT 03/01/19 15:00 03/03/19 23:59 Ondansetron HCl (Zofran) 4 mg Q6H PRN IVP Nausea & Vomiting 02/27/19 18:30 03/29/19 18:29 Oseltamivir Phosphate (Tamiflu) 75 mg TWICE A DAY ORAL 02/28/19 18:00 03/05/19 17:59 Alejandro Arellano MD Mar 03, 2019 17:24
--- NOTE | 2019-03-03 19:06 | NUR ---
HAND-OFF: Report given to Marilia JIMENEZ,no distress at this time.
--- NOTE | 2019-03-03 19:10 | NUR ---
NURSE NOTES: Received patient from Naomy Rizvi RN. Will continue plan of care.
[2019-03-03 20:00] VITALS: BP 140/81
[2019-03-03] MEDS: Dyna-Hex 2% Top Sol 2oz TOPIC SCH (20:14)
[2019-03-04] VITALS: BP 136/91
[2019-03-04] MEDS: NS IV SCH ×3 (01:21→17:44)
[2019-03-04] MEDS: ACYCLOVIR IV SCH ×3 (01:21→17:44)
[2019-03-04 04:00] VITALS: BP 132/91
[2019-03-04 04:25] LABS: BASOPHILS % (AUTO) 0.5 % (0.0-2.0); HEMATOCRIT 34.3 % (37.0-47.0); HEMOGLOBIN 10.8 G/DL (12.0-16.0); MEAN CORPUSCULAR VOLUME 76 FL (80-99); MONOCYTES % (AUTO) 8.9 % (1.0-10.0); NEUTROPHILS % (AUTO) 72.7 % (45.0-75.0); PLATELET COUNT 397 K/UL (150-450); RED CELL DISTRIBUTION WIDTH 14.9 % (11.6-14.8); WHITE BLOOD COUNT 7.7 K/UL (4.8-10.8)
[2019-03-04 04:59] LABS: ANION GAP 5 mmol/L (5-15); BLOOD UREA NITROGEN 4 mg/dL (7-18); CALCIUM 8.9 MG/DL (8.5-10.1); CARBON DIOXIDE 29 MMOL/L (21-32); CHLORIDE 106 MMOL/L (98-107); CREATININE 0.6 MG/DL (0.55-1.30); SODIUM 140 MMOL/L (136-145)
[2019-03-04] MEDS: D5 1/2NS w/KCl 20mEq 1,000 ML IV SCH ×3 (06:34→23:12)
--- NOTE | 2019-03-04 07:20 | NUR ---
HAND-OFF: Report given to BARBARA Franco.
--- NOTE | 2019-03-04 07:20 | NUR ---
NURSE NOTES: Received bedside report from Nadia JIMENEZ. Pt. in bed, eyes closed but moving her both arms. No sign of distress. No grimacing noted. PICC line at right upper arm with 2 lumen in placed patent/intact running D5 1/2 NS with Kcl 20meq. at 125cc/hr. Tolerating well. Bed in low position, locked. Call light within reach. Will cont. to monitor.
[2019-03-04 08:00] VITALS: BP 149/91
[2019-03-04] MEDS: Doxycycline Hyclate 100 MG in D5W 110 ML IV SCH ×2 (10:08→20:08)
[2019-03-04] MEDS: Oseltamivir 75mg cap ORAL SCH ×2 (10:09→17:44)
[2019-03-04] MEDS: Docusate 100mg cap ORAL SCH ×2 (10:09→20:11)
[2019-03-04] MEDS: Heparin 5000 units/ml inj SUBQ SCH ×2 (10:11→20:10)
--- NOTE | 2019-03-04 11:20 | Infectious Diseases Prog Note ---
Assessment/Plan Assessment/Plan A) 1) likely viral meningitis - rule out HSV/HZV, rule WNV, rule out other, doubt bacterial meningitis, hiv negative , csf culture negative 2) rash, ams - ? rickettsial infection 3) pmh - negative 4) allergies - nkda, sh-negative, fh-nc, mar noted 5) d/w BARBARA P) 1) acyclovir iv - day # 4, tamiflu - day # 4, doxycycline - day # 4 2) f/u on CSF studies and serology 3) clinically improved, more alert, moves extremities, consider remove isolation since csf culture negative and no vesicles on skin exam 4) d/w Dr. Lester 5) will f/u Subjective Constitutional: Reports: other - mo; Denies: fever Respiratory: Denies: shortness of breath Cardiovascular: Denies: chest pain Gastrointestinal/Abdominal: Denies: nausea, diarrhea Genitourinary: Reports: other - no espino Neurologic: Denies: headache Psychiatric: Denies: depression Skin: Denies: rash Allergies: Coded Allergies: No Known Allergies (Unverified , 02/27/19) Objective Vital Signs Last 24 Hour Vital Signs Date Time Temp Pulse Resp B/P (MAP) Pulse Ox O2 Delivery O2 Flow Rate FiO2 03/04/19 08:00 Room Air 03/04/19 08:00 99.3 89 29 149/91 (110) 99 03/04/19 07:58 84 03/04/19 04:00 Room Air 03/04/19 04:00 99.0 89 20 132/91 (105) 97 03/04/19 03:26 87 03/04/19 00:00 99.1 89 18 136/91 (106) 100 03/04/19 00:00 Room Air 03/03/19 23:27 91 03/03/19 20:01 Room Air 03/03/19 20:00 99.2 93 20 140/81 (100) 99 03/03/19 19:04 111 03/03/19 16:00 90 03/03/19 16:00 98.6 87 22 136/85 (102) 99 03/03/19 16:00 Room Air 03/03/19 12:00 102 03/03/19 12:00 98.9 100 25 148/98 (115) 97 03/03/19 12:00 Room Air Height (Feet): 5 Height (Inches): 7.00 Weight (Pounds): 228 HEENT: normocephalic, atraumatic, anicteric, mucous membranes moist Respiratory/Chest: no respiratory distress, no accessory muscle use Cardiovascular: normal rate Abdomen: soft, non tender Extremities: no cyanosis Skin: rash - stable 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40) Hemoglobin 10.8 G/DL (12.0-16.0) L Hematocrit 34.3 % (37.0-47.0) L Mean Corpuscular Volume 76 FL (80-99) L Mean Corpuscular Hemoglobin 24.1 PG (27.0-31.0) L Mean Corpuscular Hemoglobin Concent 31.6 G/DL (32.0-36.0) L Red Cell Distribution Width 14.9 % (11.6-14.8) H Platelet Count 397 K/UL (150-450) Mean Platelet Volume 5.2 FL (6.5-10.1) L Neutrophils (%) (Auto) 72.7 % (45.0-75.0) Lymphocytes (%) (Auto) 16.0 % (20.0-45.0) L Monocytes (%) (Auto) 8.9 % (1.0-10.0) Eosinophils (%) (Auto) 2.0 % (0.0-3.0) Basophils (%) (Auto) 0.5 % (0.0-2.0) Sodium Level 140 MMOL/L (136-145) Potassium Level 4.0 MMOL/L (3.5-5.1) Chloride Level 106 MMOL/L (98-107) Carbon Dioxide Level 29 MMOL/L (21-32) Anion Gap 5 mmol/L (5-15) Blood Urea Nitrogen 4 mg/dL (7-18) L Creatinine 0.6 MG/DL (0.55-1.30) Estimat Glomerular Filtration Rate > 60 mL/min (>60) Glucose Level 112 MG/DL (74-106) H Calcium Level 8.9 MG/DL (8.5-10.1) Current Medications Medications (Trade) Dose Ordered Sig/Kandi Route PRN Reason Start Time Stop Time Status Last Admin Dose Admin Acetaminophen (Tylenol) 650 mg Q6H PRN ORAL Mild Pain/Temp > 100.5 02/28/19 07:45 03/30/19 07:44 03/01/19 00:31 Acyclovir 750 mg/ Sodium Chloride 275 ml @ 275 mls/hr Q8H IV 02/28/19 02:00 03/30/19 01:59 03/04/19 10:09 Chlorhexidine Gluconate (Mickie-Hex 2%) 1 applic DAILY@2000 TOPIC 03/01/19 20:00 03/31/19 19:59 03/03/19 20:14 Dextrose (Dextrose 50%) 25 ml Q30M PRN IV Hypoglycemia 02/27/19 18:30 03/29/19 18:29 Dextrose (Dextrose 50%) 50 ml Q30M PRN IV Hypoglycemia 02/27/19 18:30 03/29/19 18:29 Dextrose/ Electrolytes 1,000 ml @ 125 mls/hr Q8H IV 03/03/19 15:00 04/02/19 14:59 03/04/19 06:34 Docusate Sodium (Colace) 100 mg EVERY 12 HOURS ORAL 02/27/19 21:00 03/29/19 20:59 03/04/19 10:09 Doxycycline Hyclate 100 mg/ Dextrose 110 ml @ 110 mls/hr Q12HR IV 02/28/19 14:30 03/07/19 14:29 03/04/19 10:08 Heparin Sodium (Porcine) (Heparin 5000 units/ml) 5,000 units EVERY 12 HOURS SUBQ 02/27/19 21:00 03/29/19 20:59 03/04/19 10:11 Ondansetron HCl (Zofran) 4 mg Q6H PRN IVP Nausea & Vomiting 02/27/19 18:30 03/29/19 18:29 Oseltamivir Phosphate (Tamiflu) 75 mg TWICE A DAY ORAL 02/28/19 18:00 03/05/19 17:59 03/04/19 10:09 Alejandro Arellano MD Mar 04, 2019 11:20
[2019-03-04 12:00] VITALS: BP 128/85
--- NOTE | 2019-03-04 12:57 | Diagnostic Imaging Report ---
APPROVED REPORT CPT Code: 78850 Present Symptoms Comments: Screening Risk Factors Bed Rest BILATERAL: Imaging reveals a patent deep venous system bilaterally. There is no evidence of thrombus within the common femoral, superficial femoral, popliteal or tibial segments. The greater saphenous veins are within normal limits. Doppler indicates normal spontaneous flow within these segments.
--- NOTE | 2019-03-04 13:00 | NUR ---
NURSE NOTES: Pt. sister called for update. Informed her that her sister sat at the edge of the bed with P.T. Family appreciated the news.
--- NOTE | 2019-03-04 13:23 | NUR ---
CASE MANAGEMENT:REVIEW 03/04/19 SI: LIKELY VIRAL MENINGITIS R/O HSV/HZV. R/O WNV 99.5 95 30 128/85 98% ON RA H/H-10.8/34.3 IS:IV DOXYCYCLINE Q12 IV ACYCLOVIR Q8HRS IVF@125/HR TAMIFLU PO BID HEPARIN SQ Q12 : STEP DOWN UNIT PLAN: PT EVAL
--- NOTE | 2019-03-04 13:39 | NUR ---
REHAB P.T NOTE: P.T EVALUATION COMPLETED AND TREATMENT INITIATED. PLEASE REFER TO P.T EVALUATION FOR CURRENT FUNCTIONAL STATUS. PATIENT IS ALERT, ORIENTED TO SELF/PERSON, PLACE AND SITUATION BUT NOT TO TIME. PATIENT FOLLOWS SIMPLE COMMANDS AND AGREEABLE TO PARTICIPATE IN P.T EVALUATION/TX. PATIENT IS SIGNIFICANTLY WEAK AND DECONDITIONED LIMITING FUNCTIONAL MOBILITY PERFORMANCE AND INDEPENDENCE. PATIENT CURRENTLY REQUIRES MAX A X 1 TO ROLL/TURN AND COMPLETE SUPINE TO/FROM SITTING. PATIENT ABLE TO SIT AT THE EOB HOWEVER NEEDED BUE SUPPORT TO MAINTAIN UPRIGHT SITTING POSITION. PATIENT IS TOO WEAK AND FATIGUED TO STAND AND TRANSFER OOB AT THIS TIME. WILL PROGRESS ACTIVITIES EACH DAY TOLERATED. WILL BE SEEN FOR P.T 6XWK QD TO IMPROVE STRENGTH AND ACTIVITY TOLERANCE TO RETURN TO OF. PATIENT WOULD BENEFIT FROM INPATIENT REHAB AT [place]. THANK YOU FOR THIS REFERRAL.
[2019-03-04 16:00] VITALS: BP 137/84
--- NOTE | 2019-03-04 16:02 | NUR ---
*-* INSURANCE *-* ALL AVAILABLE CLINICALS HAVE BEEN FAXED TO: [facility] NO ACADEM[employer] EDUCATION DIRECTOR ASSIGNED AT THIS TIME, PLEASE FAX THE REVIEW/CLINICAL P- [phone] / [phone] F- [phone]...REVIEW/CLINICAL
--- NOTE | 2019-03-04 16:10 | General Progress Note ---
Assessment/Plan Problem List: (1) Maculopapular rash, generalized ICD Codes: R21 - Rash and other nonspecific skin eruption SNOMED: 489903163 (2) Meningitis ICD Codes: G03.9 - Meningitis, unspecified SNOMED: 4048661 (3) Acute febrile illness ICD Codes: R50.9 - Fever, unspecified SNOMED: 008018527 (4) Fever ICD Codes: R50.9 - Fever, unspecified SNOMED: 483307299 Status: progressing Assessment/Plan: Trenton Elena is a 23 yo woman with no known PMH who presented with fever and AMS , found with likely viral meningitis. Suspect viral meningitis, infectious encephalopathy - IMPROVING > CT head overall unremarkable > Afebrile in past 24 hours > Negative: HIV, hepatitis panel - Severely altered mentation - CSF notable for 45 WBC with 96% lymphocytes, 54 glucose, elevated protein 140. Gram stain negative and bacterial culture negative thus far - ID consult bri Tavarez appreciated -Per ID: Discontinue ceftriaxone and vancomycin (4 days) Continue acyclovir 750mg IV q8hrs, doxycycline 100mg IV q12hrs and tamiflu 75mg BID - S/p decadron x 1 in ED. CSF studies not consistent with strep meningitis, hold off on further steroids - F/U further studies pending including WNV, HSV, VZV, TB spot, rickettsial, hepatitis, crypto, coccidio - Tylenol PRN fever - physical therapy evaluation today #severe genearlized weaknesa and dysarthria- IMPROVING. likely sequela from meningitis. improving - physical therapy and speech eval - treatment of meningitis as above #microcytic anemia - iron panel and ferritin Hypokalemia - Replace as needed Nausea/vomiting - Zofran PRN FEN D5 1/2 NS @ 125cc/hr with 20KCL. May need NG tube Regular diet when awake but otherwise NPO Heparin subq DVT PPX Discussed with RN and Infectious Disease. I spent 37 minutes on this patient's care, including >50% on counseling and/or coordination of care. Subjective Date patient seen: Mar 04, 2019 Constitutional: Denies: chills, diaphoresis, fever, malaise, weakness, other HEENT: Denies: eye pain, blurred vision, tearing, double vision, ear pain, ear discharge, nose pain, nose congestion, throat pain, throat swelling, mouth pain , mouth swelling, other Cardiovascular: Denies: chest pain, edema, irregular heart rate, lightheadedness, palpitations, syncope, other Respiratory: Denies: cough, orthopnea, shortness of breath, SOB with excertion , SOB at rest, sputum, stridor, wheezing, other Gastrointestinal/Abdominal: Denies: abdomen distended, abdominal pain, black stools, tarry stools, blood in stool, constipated, diarrhea, difficulty swallowing, nausea, poor appetite, poor fluid intake, rectal bleeding, vomiting , other Genitourinary: Denies: burning, discharge, frequency, flank pain, hematuria, incontinence, pain, urgency, other Neurologic/Psychiatric: Denies: anxiety, depressed, emotional problems, headache, numbness, paresthesia, pre-existing deficit, seizure, tingling, tremors, weakness, other Endocrine: Denies: excessive sweating, flushing, intolerance to cold, intolerance to heat, increased hunger, increased thirst, increased urine, unexplained weight gain, unexplained weight loss, other Hematologic/Lymphatic: Denies: anemia, easy bleeding, easy bruising, other Allergies: Coded Allergies: No Known Allergies (Unverified , 02/27/19) Subjective No acute events overnight per nursing. Continues to improve. More awake and alert, able to sit up in bed. Meningitis: mental status much better today but having some dysarthria. No other focal signs. Patient alert and understands questions. Denies headaches, neck stiffness, fevers or chills. Objective Last 24 Hour Vital Signs Date Time Temp Pulse Resp B/P (MAP) Pulse Ox O2 Delivery O2 Flow Rate FiO2 03/04/19 15:40 113 03/04/19 12:00 Room Air 03/04/19 12:00 99.5 95 30 128/85 (99) 98 03/04/19 11:37 96 03/04/19 08:00 Room Air 03/04/19 08:00 99.3 89 29 149/91 (110) 99 03/04/19 07:58 84 03/04/19 04:00 Room Air 03/04/19 04:00 99.0 89 20 132/91 (105) 97 03/04/19 03:26 87 03/04/19 00:00 99.1 89 18 136/91 (106) 100 03/04/19 00:00 Room Air 03/03/19 23:27 91 03/03/19 20:01 Room Air 03/03/19 20:00 99.2 93 20 140/81 (100) 99 03/03/19 19:04 111 Intake and Output 03/03/19 03/04/19 19:00 07:00 Intake Total 1135 ml 1994.0 ml Output Total 2100 ml Balance -965 ml 1994.0 ml IV Total 1135 ml 1994.0 ml Output Urine Total 2100 ml # Voids 3 Laboratory Tests 03/04/19 04:00: White Blood Count 7.7, Red Blood Count 4.50, Hemoglobin 10.8L, Hematocrit 34.3L , Mean Corpuscular Volume 76L, Mean Corpuscular Hemoglobin 24.1L, Mean Corpuscular Hemoglobin Concent 31.6L, Red Cell Distribution Width 14.9H, Platelet Count 397, Mean Platelet Volume 5.2L, Neutrophils (%) (Auto) 72.7, Lymphocytes (%) (Auto) 16.0L, Monocytes (%) (Auto) 8.9, Eosinophils (%) (Auto) 2.0, Basophils (%) (Auto) 0.5, Sodium Level 140, Potassium Level 4.0, Chloride Level 106, Carbon Dioxide Level 29, Anion Gap 5, Blood Urea Nitrogen 4L, Creatinine 0.6, Estimat Glomerular Filtration Rate > 60, Glucose Level 112H, Calcium Level 8.9 Height (Feet): 5 Height (Inches): 7.00 Weight (Pounds): 228 General Appearance: WD/WN, no apparent distress, alert, lethargic EENT: PERRL/EOMI, normal ENT inspection Neck: non-tender, normal alignment Cardiovascular: normal peripheral pulses, normal rate, regular rhythm, no JVD Respiratory/Chest: chest wall non-tender, lungs clear, normal breath sounds, no respiratory distress Abdomen: normal bowel sounds, non tender, soft Extremities: normal range of motion, non-tender Neurologic: bobbin marker II-XII grossly normal, no motor/sensory deficits, alert, oriented x 3, other - +dysarthria Skin: normal pigmentation, warm/dry Surinder Lester D.O. Mar 04, 2019 16:10
--- NOTE | 2019-03-04 17:19 | NUR ---
NURSE NOTES: Left message to [facility] assistant corporate secretary/Elia. Patient is Sinus Tach in the monitor, awaiting for MD to call back.
--- NOTE | 2019-03-04 18:05 | NUR ---
NURSE NOTES: Follow up call done to [facility]. Spoke with ADDI, he said hat he will page Doctor yard goods salesperson. SDU call back number provided.
--- NOTE | 2019-03-04 18:31 | NUR ---
NURSE NOTES: Left message to [facility] and spoke to Dillan. Informed field secretary that Doctor needs to know that patient's HR is 110-120. And there's an active order to transfer patient to [facility]. Awaiting for Doctor communications instructor to call back.
--- NOTE | 2019-03-04 19:10 | NUR ---
NURSE NOTES: Received report from Joan JIMENEZ, pt. in bed awake, alert to name, no signs or symptoms of acute cardiac or respiratory distress noted, bed alarm on, side rails up x's 3 and safety brakes engaged, side tails padded for seizure precautions, call light within easy reach and bed locked in position, cardiac catheterization technologist on, pure wick intact and set to suction, pt. appears to be clean and dry, BRODIE picc intact and running D5 1/2 NS +20 KCL at 125mls/hr, safety measures continued, will continue with plan of care.
--- NOTE | 2019-03-04 19:37 | NUR ---
HAND-OFF: Report given to Abeba JIMENEZ. Pt. remain stable. Dr. Wright gave order to transfer to tele.
[2019-03-04 20:00] VITALS: BP 137/93
[2019-03-04] MEDS: Dyna-Hex 2% Top Sol 2oz TOPIC SCH (20:08)
[2019-03-05] VITALS: BP 145/75
[2019-03-05] MEDS: ACYCLOVIR IV SCH ×3 (02:13→21:53)
[2019-03-05] MEDS: NS IV SCH ×3 (02:13→21:53)
--- NOTE | 2019-03-05 03:55 | NUR ---
HAND-OFF: Report given to Jenna JIMENEZ, pt. transferred to telemetry room 207-1,- pt. remains stable and no signs of distress noted.
[2019-03-05 04:00] VITALS: BP 132/89
[2019-03-05] MEDS ORDERED: D5 1/2NS w/KCl 20mEq 1,000 ML IV SCH ×2 (04:00→13:00)
--- NOTE | 2019-03-05 04:40 | NUR ---
NURSE NOTES: RECEIVED PATIENT FROM [facility]. PATIENT ALERT, FOLLOWS COMMANDS, SR ON A MONITOR. INCONTINENCE CARE GIVEN, LINEN CHANGED, PATIENT TURNED AND REPOSITIONED. FALL, ASPIRATION AND SEIZURE PRECAUTIONS IN PLACE: CALL LIGHT WITHIN REACH, BED IN LOW POSITION AND BED ALARM ON; HOB ELEVATED AND SIDE RAILS PADDED. WILL CONTINUE WITH PLAN OF CARE.
[2019-03-05 04:50] LABS: BASOPHILS % (AUTO) 0.6 % (0.0-2.0); EOSINOPHILS % (AUTO) 2.5 % (0.0-3.0); HEMATOCRIT 28.7 % (37.0-47.0); LYMPHOCYTES % (AUTO) 13.6 % (20.0-45.0); MEAN CORPUSCULAR VOLUME 77 FL (80-99); MONOCYTES % (AUTO) 10.5 % (1.0-10.0); NEUTROPHILS % (AUTO) 72.8 % (45.0-75.0); PLATELET COUNT 379 K/UL (150-450); RED BLOOD COUNT 3.75 M/UL (4.20-5.40); RED CELL DISTRIBUTION WIDTH 14.7 % (11.6-14.8)
[2019-03-05 05:17] LABS: ANION GAP 7 mmol/L (5-15); BLOOD UREA NITROGEN 3 mg/dL (7-18); CALCIUM 6.4 MG/DL (8.5-10.1); CARBON DIOXIDE 24 MMOL/L (21-32); CHLORIDE 114 MMOL/L (98-107); CREATININE 0.4 MG/DL (0.55-1.30); PHOSPHORUS 2.5 MG/DL (2.5-4.9); POTASSIUM 2.8 MMOL/L (3.5-5.1); SODIUM 146 MMOL/L (136-145)
[2019-03-05 05:22] LABS: % IRON SATURATION 9 % (15-50); IRON 19 ug/dL (50-175); TOTAL IRON BINDING CAPACITY 221 ug/dL (250-450)
[2019-03-05 05:38] LABS: FERRITIN 57 NG/ML (8-388)
--- NOTE | 2019-03-05 06:59 | NUR ---
NURSE NOTES: k-2.8 CALLED AND LEFT MESSAGE FOR DR. UPTON.
--- NOTE | 2019-03-05 07:28 | NUR ---
HAND-OFF: Report given to BARBARA NORRIS. PATIENT RESTING IN BED, NO SIGNS OF DISTRESS NOTED.
--- NOTE | 2019-03-05 07:32 | NUR ---
NURSE NOTES: Received report from BARBARA West. Patient verbalized good morning and appeared aox3 with quiet but clear speech. No co pain and breathing easily on RA. This RN spoke with Dr Hope who ordered 40meq of potassium po for a K of 2.8 in this morning's labs. Bed in lowest , locked position with call silva in reach. and seizure / aspiration precautions in place.
[2019-03-05 08:00] VITALS: BP 134/80
--- NOTE | 2019-03-05 08:06 | NUR ---
NURSE NOTES: 8am vitals revealed O2 desat to 87% on RA. Patient found with RR 24-28. NC on 3L, no effect. Deep breaths and cough ineffective.Relaxation ineffective. Called Dr Azevedo's # to report and get orders. RT on unit and placed on nonrebreather at 50% , still desat to 86%, now 100% venti mask patient sat 96%. Resp therapy in room, notifying charge authorizer and nursing print line supervisor. Will request ABG and CXR from with call back : low threshold for SALES SUPPORT MANAGER and return to higher level of care. Addendum: 03/05/19 at 1010 by Rohith Ramirez RN RN print line supervisor Antoinette was not spoken to at 8am by this RN. transportation coordinator, notified by this RN notified. RT asked for order for ABG before drawing and contacted for same at that time.
--- NOTE | 2019-03-05 08:15 | NUR ---
NURSE NOTES: Made attempt to notify nursing shell shop supervisor about pulse ox/non-rebreather. Nursing shell shop supervisor was off unit.
[2019-03-05] MEDS ORDERED: Heparin 5000 units/ml inj SUBQ SCH (09:00)
[2019-03-05] MEDS ORDERED: Oseltamivir 75mg cap ORAL SCH ×2 (09:00→18:00)
[2019-03-05] MEDS ORDERED: Doxycycline Hyclate 100 MG in D5W 110 ML IV SCH ×2 (09:00→21:00)
[2019-03-05] MEDS ORDERED: Docusate 100mg cap ORAL SCH ×2 (09:00→21:00)
--- NOTE | 2019-03-05 09:00 | NUR ---
NURSE NOTES: Called back Dr Bedoya's group at 853am when no call back received from previous. Informed by service that Dr Jay manager relationship now. Pt appears stable with O2 sat steadily 94% on 100% mask.
--- NOTE | 2019-03-05 09:06 | NUR ---
NURSE NOTES: Dr Jay returned call and ordered stat cxr and ABG and stated he was on his way to room saying he was just arriving to the hospital. Addendum: 03/05/19 at 1300 by Rohith Ramirez RN Dr Lester also ordered to stop IV Fluids during this initial phonecall. Done at same time--fluids stopped.
--- NOTE | 2019-03-05 09:38 | NUR ---
CASE MANAGEMENT:REVIEW 03/05/19 SI: VIRAL MENINGITIS RAPID RESPONSE CALLED 100.6 110 24 137/93 87% ON RA.....PLACED ON VENTI MASK H/H-9.0/28.7 K-2.8 MAG-1.4 IS:IV DOXYCYCLINE Q12 IV ACYCLOVIR Q8HRS IV CA GLUCONATE X1 IVF@125/HR TAMIFLU PO BID HEPARIN SQ Q12 : TELEMETRY UNIT PLAN PER DR ROJO ~ NOT STABLE FOR TRANSFER AT THIS TIME
--- NOTE | 2019-03-05 09:41 | NUR ---
NURSE NOTES: Dr Jay at bedside. He ordered abg and cxr. ABG results given and Dr Jay wt hypoxia. Dr Carpenter at bedside ordering CT. Patient with consistent slight ability to verbalize to simple questions--no change from morning RN report and from observation at change of shift by this RN. O2 Sat now 98% on 100% mask.
[2019-03-05] MEDS ORDERED: Omnipaue 350mg/ml 100ml vial INJ PRN (09:45)
--- NOTE | 2019-03-05 09:54 | Cardiac Electrophysiology PN ---
Subjective Subjective [id number] Objective Last 24 Hour Vital Signs Date Time Temp Pulse Resp B/P (MAP) Pulse Ox O2 Delivery O2 Flow Rate FiO2 03/05/19 04:00 100 03/05/19 04:00 99.4 100 20 132/89 (103) 95 03/05/19 00:00 Room Air 03/05/19 00:00 99.3 104 20 145/75 (98) 94 03/05/19 00:00 102 03/04/19 20:52 99.1 03/04/19 20:52 99.1 03/04/19 20:00 Room Air 03/04/19 20:00 100.6 110 24 137/93 (108) 98 03/04/19 20:00 119 03/04/19 16:00 Room Air 03/04/19 16:00 99.7 107 30 137/84 (101) 94 03/04/19 15:40 113 03/04/19 12:00 Room Air 03/04/19 12:00 99.5 95 30 128/85 (99) 98 03/04/19 11:37 96 Intake and Output 03/04/19 03/05/19 19:00 07:00 Intake Total 1615 ml 1360 ml Output Total 800 ml 900 ml Balance 815 ml 460 ml Intake Oral 240 ml IV Total 1375 ml 1360 ml Output Urine Total 800 ml 900 ml # Voids 1 # Bowel Movements 1 Laboratory Tests Test 03/05/19 03:30 03/05/19 09:28 White Blood Count 9.0 K/UL (4.8-10.8) Red Blood Count 3.75 M/UL (4.20-5.40) L Hemoglobin 9.0 G/DL (12.0-16.0) L Hematocrit 28.7 % (37.0-47.0) L Mean Corpuscular Volume 77 FL (80-99) L Mean Corpuscular Hemoglobin 23.9 PG (27.0-31.0) L Mean Corpuscular Hemoglobin Concent 31.2 G/DL (32.0-36.0) L Red Cell Distribution Width 14.7 % (11.6-14.8) Platelet Count 379 K/UL (150-450) Mean Platelet Volume 4.7 FL (6.5-10.1) L Neutrophils (%) (Auto) 72.8 % (45.0-75.0) Lymphocytes (%) (Auto) 13.6 % (20.0-45.0) L Monocytes (%) (Auto) 10.5 % (1.0-10.0) H Eosinophils (%) (Auto) 2.5 % (0.0-3.0) Basophils (%) (Auto) 0.6 % (0.0-2.0) Sodium Level 146 MMOL/L (136-145) H Potassium Level 2.8 MMOL/L (3.5-5.1) L Chloride Level 114 MMOL/L (98-107) H Carbon Dioxide Level 24 MMOL/L (21-32) Anion Gap 7 mmol/L (5-15) Blood Urea Nitrogen 3 mg/dL (7-18) L Creatinine 0.4 MG/DL (0.55-1.30) L Estimat Glomerular Filtration Rate > 60 mL/min (>60) Glucose Level 80 MG/DL (74-106) Calcium Level 6.4 MG/DL (8.5-10.1) #L Phosphorus Level 2.5 MG/DL (2.5-4.9) Magnesium Level 1.4 MG/DL (1.8-2.4) L Iron Level 19 ug/dL (50-175) L Total Iron Binding Capacity 221 ug/dL (250-450) L Percent Iron Saturation 9 % (15-50) L Unsaturated Iron Binding 202 ug/dL (112-346) Ferritin 57 NG/ML (8-388) Arterial Blood pH 7.462 (7.350-7.450) Arterial Blood Partial Pressure CO2 35.9 mmHg (35.0-45.0) Arterial Blood Partial Pressure O2 59.7 mmHg (75.0-100.0) L Arterial Blood HCO3 25.1 mmol/L (22.0-26.0) Arterial Blood Oxygen Saturation 90.6 % (95-100) L Arterial Blood Base Excess 1.6 (-2-2) Anselmo Test Positive Donaldo Varghese MD Mar 05, 2019 09:54
--- NOTE | 2019-03-05 09:56 | NUR ---
NURSE NOTES: Patient consent for CT with contrast--patient alert and signed consent. NKA on chart and confirmed with patient verbally.
--- NOTE | 2019-03-05 09:57 | NUR ---
NURSE NOTES:Patient alert but found to weak to sign consent, verbal agreement to consent obtained with cost and risk analysis manager and this RN .
[2019-03-05] MEDS ORDERED: NS IV SCH ×2 (10:00→18:00)
[2019-03-05] MEDS ORDERED: ACYCLOVIR IV SCH ×2 (10:00→18:00)
--- NOTE | 2019-03-05 10:11 | NUR ---
2d Echo being done curerntly, then will do EKG as soon as patient available. Curerntly waiting for Ct (called they are on their way). Addendum: 03/05/19 at 1022 by Rohith Ramirez RN Dr Lester authorized waiting [address] (CT arrived on floor at 1018am) to finish 2d echo (currently in process). EKG will be done imimediately after 2D echo and beofre leaving for CT.
--- NOTE | 2019-03-05 10:12 | NUR ---
RADIOLOGY DEPT., CHEST X-RAY DONE.-P.DYE
[2019-03-05] MEDS ORDERED: Calcium Gluconate 10% 1 GM in NS 110 ML IVPB ONE (11:00)
--- NOTE | 2019-03-05 11:11 | NUR ---
RD ASSESSMENT & RECOMMENDATIONS SEE CARE ACTIVITY FOR COMPLETE ASSESSMENT DAILY ESTIMATED NEEDS: Needs based on obesity, infection/ 72kg abw 22-27 kcals/kg 1858-5834 total kcals 1-1.5 g protein/kg 72-108 g total protein 25-30 mL/kg 6344-2647 total fluid mLs NUTRITION DIAGNOSIS: * Inadequate oral intake R/T AMS, weakness, clinical condition as evidenced by R-15% intake of meals since admission, may need NGT per MD, GROUP CHIEF OPERATOR eval is pending. * Altered nutrition related lab values R/T clinical condition as evidenced by low K (2.8), low mag (1.4), febrile. CURRENT DIET:REGULAR PO DIET RECOMMENDATIONS: REGULAR/ texture per GROUP CHIEF OPERATOR ENTERAL NUTRITION RECOMMENDATIONS: Jevity 1.2 @ 60ml/hr x 24 hrs to provide 1440ml, 1728kcal, 80g prot, 1156ml free water * IF NONORAL FEEDING IS INDICATED AND PART OF POC -> Obtain GI access, initiate Jevity 1.2 @ 20ml/hr x 6 hrs -> Advance 10ml q 4-6 hrs as tolerated to goal rate -> HOB over 30 degrees/ water flush per MD ADDITIONAL RECOMMENDATIONS: * Monitor oral intake and tolerance -> f/up w/ GROUP CHIEF OPERATOR eval * Calibrated bedscale wt for accurate CBW * Monitor lytes, replete as needed (low K and mag)
--- NOTE | 2019-03-05 11:16 | NUR ---
NURSE NOTES: 1145am called Dr Lester (he was busy talking to another patient in ICU, so left message wtih charge at ICU to transmit to .) Tele youth nutritional monitor notified Dr Carpenter of EKG.
--- NOTE | 2019-03-05 11:18 | NUR ---
NURSE NOTES: Morning meds not given d/t npo with 100% O2 mask in place. Dr Diamond aware--instructed to give subq heparin and focus on getting all testing done stat.
--- NOTE | 2019-03-05 11:37 | Diagnostic Imaging Report ---
Indication: Dyspnea Comparison: 02/19/2019 A single view chest radiograph was obtained. Findings: Hazy opacity at the right lung base consistent with a pleural effusion. There is a right PICC line with the tip situated upper part of the right atrium. Heart size is stable. IMPRESSION: Right pleural effusion
--- NOTE | 2019-03-05 11:40 | NUR ---
NURSE NOTES: Patient transferred to [facility] immediately upon return from CTa scan. Report given to BARBARA Engel and patient settled into room 239. Endorsed labs remaining to [facility] RN. Patient belongings transferred to bedside Room 239 and chart transfer signed. Addendum: 03/05/19 at 1150 by Rohith Ramirez RN IV meds delivered from med room pocket to [facility] RN at 1149 Addendum: 03/05/19 at 1223 by Rohith Ramirez RN Meds from morning time in [facility] that were not given--Dr Diamond aware that patient was not available when med arrived to unit--since patient was moving to [facility] instructed to make sure RN at [facility] given meds to administer. RN in [facility] aware and received meds with transfer of patient.
[2019-03-05 12:00] VITALS: BP 137/90
--- NOTE | 2019-03-05 12:00 | NUR ---
NURSE NOTES: Report received from Rohith Lara RN. Pt awake, alert and oriented x 2-3, confused and forgetful at times. Pt ST on groundwater monitoring technician. Pt on 100% non-rebreather mask saturating 98%. Pt incontinent with urine. Placed pt on purewick. BRODIE PICC x2 lumen noted and intact. Safety measures in place with bed locked and in lowest position, side rails x 3 up and bed alarm on. Will continue to monitor and continue plan of care.
--- NOTE | 2019-03-05 12:47 | Diagnostic Imaging Report ---
Indication: Chest pain Technique: Continuous helical transaxial imaging of the chest was obtained from the thoracic inlet to the upper abdomen during rapid intravenous contrast administration. Arterial phase of enhancement obtained. Coronal 2-D reformats were also obtained and maximum intensity projection images in multiple planes. Study obtained in a Siemens sensation [address] Automatic Exposure Control was utilized. Total Dose length Product (DLP): [address] Dose Index Volume (CTDIvol): 33.10 mGy Comparison: None Findings: The pulmonary artery is well opacified and shows no filling defects. There is no adenopathy, pleural or pericardial effusions are identified. There is no aortic dissection or aneurysm identified within the chest. There is dense right basilar consolidation. Consider pneumonia. Mild posterior basal atelectasis also demonstrated on the left. There is extensive artifact limiting evaluation. IMPRESSION: No evidence of pulmonary embolus, aortic dissection or aneurysm. Suspected pneumonia at the right lung base. Correlate clinically. Limited evaluation due to artifact The CT scanner at [facility] is accredited by the [employer] and the scans are performed using dose optimization techniques as appropriate to a performed exam including Automatic Exposure control.
--- NOTE | 2019-03-05 13:00 | NUR ---
NURSE NOTES: A [place].s. representative of [facility] called to report that pt is positive for the [place] virus. Dr Sinha and Dr Jay notified. Will continue to monitor.
[2019-03-05 13:27] LABS: ALANINE AMINOTRANSFERASE 22 U/L (12-78); ALBUMIN 3.2 G/DL (3.4-5.0); ALBUMIN/GLOBULIN RATIO 0.7 (1.0-2.7); ALKALINE PHOSPHATASE 55 U/L (46-116); ANION GAP 8 mmol/L (5-15); ASPARTATE AMINO TRANSFERASE 16 U/L (15-37); BILIRUBIN,TOTAL 0.4 MG/DL (0.2-1.0); BLOOD UREA NITROGEN 5 mg/dL (7-18); CALCIUM 9.3 MG/DL (8.5-10.1); CARBON DIOXIDE 28 MMOL/L (21-32); CHLORIDE 102 MMOL/L (98-107); CKMB < 0.5 NG/ML (0.0-3.6); CREATINE KINASE 60 U/L (26-308); CREATININE 0.6 MG/DL (0.55-1.30); POTASSIUM 3.9 MMOL/L (3.5-5.1); SODIUM 138 MMOL/L (136-145)
[2019-03-05] MEDS: Piperacillin/Tazobactam 3.375 GM in NS 110 ML IVPB SCH ×2 (14:25→21:53)
[2019-03-05 14:40] LABS: HEMATOCRIT 38.5 % (37.0-47.0); HEMOGLOBIN 12.4 G/DL (12.0-16.0); MEAN CORPUSCULAR VOLUME 77 FL (80-99); PLATELET COUNT 537 K/UL (150-450); RED CELL DISTRIBUTION WIDTH 14.9 % (11.6-14.8)
--- NOTE | 2019-03-05 14:40 | Cardiology Report ---
APPROVED REPORT EXAM: Two-dimensional and M-mode echocardiogram with Doppler and color Doppler. INDICATION Dyspnea M-Mode DIMENSIONS IVSd1.1 (0.7-1.1cm)Left Atrium (MM)3.7 (1.6-4.0cm) LVDd3.6 (3.5-5.6cm)Aortic Root3.7 (2.0-3.7cm) PWd1.0 (0.7-1.1cm)Aortic Cusp Exc.1.9 (1.5-2.0cm) IVSs1.5 cm LVDs2.6 (2.5-4.0cm) PWs1.4 cm Normal left ventricular chamber size, systolic function and wall motion . Left ventricular ejection fraction estimated to be 55 %. Possible small pleural effusion . All other cardiac chamber sizes are within normal limits. Focal aortic valve sclerosis with adequate cusp excursion. Thickened mitral valve leaflets with normal excursion. Mitral annulus and aortic root calcification. Pulmonic valve not well visualized. Normal tricuspid valve structure. IVC at normal size with physiologic collapse. A color flow and spectral Doppler study was performed and revealed: No aortic regurgitation. Trace mitral regurgitation. Mitral inflow indicates normal left ventricular diastolic function. Trace tricuspid regurgitation. Tricuspid systolic velocities suggests peak right ventricular systolic pressure of 10 mmHg.
[2019-03-05 14:42] LABS: WHITE BLOOD COUNT 22.3 K/UL (4.8-10.8)
--- NOTE | 2019-03-05 14:42 | NUR ---
SPEECH PATHOLOGY: PATIENT CLEARED FOR ST INTERVENTION BY BARBARA REES. CHART REVIEWED, AND BEDSIDE SWALLOW EVALUATION COMPLETED PER MD ORDER. DYSPHAGIA RISK FACTORS FOR THIS 23 Y.O. FEMALE: NEW ONSET NEUROLOGIC LIMITATIONS (ABSENT VOLITIONAL COUGH, UNABLE TO SUSTAIN PHONATION, UE WEAKENSS), SUDDEN ONSET AMS). INITIAL IMPRESSION MILD/MOD OROPHARYNGEAL DYSPHAGIA WITH DELAY IN INITIATION OF ORAL PREPARATION/ORAL TRANSIT AND PHARYNGEAL PHASE OF SWALLOW. CLEAR UPPER AIRWAY SOUNDS PRE/POST SWALLOW PER CERVICAL AUSCULTATION, COUGH POST SWALLOW THIN LIQUIDS, DOUBLE SWALLOW TO CLEAR PUREE TRIALS, FAIR HYLOLARYNGEAL EXCURSION, WEAK/NON-CLEARING VOLITIONAL COUGH, SLOWED MASTICATION OF SOFT SOLID. UNABLE TO SUSTAIN PHONATION. NEW NEURO DX ([place] VIRUS) RECOMMENDATIONS: NON/ORAL FEEDING MANAGEMENT. ST TO FOLLOW UP WITH VIDEO SWALLOW STUDY TO DETERMINE EFFICACY OF SWALLOW. RECOMMEND COGNITIVE/LINGUISTIC ASSESSWMENT D/W BARBARA REES
[2019-03-05 15:09] LABS: PHOSPHORUS 4.2 MG/DL (2.5-4.9)
--- NOTE | 2019-03-05 15:37 | General Progress Note ---
Assessment/Plan Problem List: (1) Maculopapular rash, generalized ICD Codes: R21 - Rash and other nonspecific skin eruption SNOMED: 899457949 (2) Meningitis ICD Codes: G03.9 - Meningitis, unspecified SNOMED: 7908905 (3) Acute febrile illness ICD Codes: R50.9 - Fever, unspecified SNOMED: 911025245 (4) Fever ICD Codes: R50.9 - Fever, unspecified SNOMED: 314656084 (5) Acute respiratory failure with hypoxia ICD Codes: J96.01 - Acute respiratory failure with hypoxia SNOMED: 28790329, 351845183 (6) Aspiration pneumonia ICD Codes: J69.0 - Pneumonitis due to inhalation of food and vomit SNOMED: 661635679 Status: progressing Assessment/Plan: Trenton Elena is a 23 yo woman with no known PMH who presented with fever and AMS , 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 #Severe sepsis (WBC, heart rate, respiratory rate) 2/2 right lower lobe aspiration pneumonia #Acute hypoxic respiratory failure 2/2 aspiration pneumonia #Metabolic encephalopathy 2/2 aspiration pneumonia > ABG 7.46/35.9/59.7/25.1 on 100% non rebreather > CT pulmonary angiogram negative for pulmonary embolism, shows right lower lobe consolidation. - Transfer to step down - Telemetry - blood cultures - sputum cultures - Titrate FiO2 to SpO2 > 92% - Start Vancomycin - Start Zosyn - Normal saline 100 cc/hr - 1L bolus x 1 - duonebs q6hr PRN - Appreciate ID recommendations: Dr. Sinha - Appreciate Pulmonology recommendations: Dr. Hansen - Appreciate Cardiology recommendations: Dr. Varghese [place] meningitis- stable > CT head overall unremarkable > Afebrile in past 24 hours > Negative: HIV, hepatitis panel - CSF notable for 45 WBC with 96% lymphocytes, 54 glucose, elevated protein 140. Gram stain negative and bacterial culture negative thus far - ID consult Dr. Arellano, recs appreciated -Per ID: Discontinue ceftriaxone and vancomycin (4 days) Discontinue acyclovir, doxycycline and tamiflu today. - S/p decadron x 1 in ED. CSF studies not consistent with strep meningitis, hold off on further steroids - F/U further studies pending including WNV, HSV, VZV, TB spot, rickettsial, hepatitis, crypto, coccidio - Tylenol PRN fever - physical therapy for rehab #severe genearlized weakness and dysarthria- IMPROVING. likely sequela from meningitis. improving - physical therapy and speech eval - treatment of meningitis as above #dysphagia 2/2 [place] meningitis - NG tube insertion and Tube feeds #microcytic anemia - iron panel and ferritin Hypokalemia - Replace as needed Nausea/vomiting - Zofran PRN FEN diet: IV fluids, insert NG tube and tube feeds Regular diet when awake but otherwise NPO Heparin subq DVT PPX Discussed with RN, Infectious Disease, Cardiology and Pulmonology. I spent 37 minutes on this patient's care, including >50% on counseling and/or coordination of care. On the above date of service, I spent a total of 41 minutes of critical care time on the floor during the rapid response evaluating, managing, and providing critical care services to this patient, including time spent/documenting these activities counseling patient/family, and coordinating care: Critical care services performed include Telemetry review Hemodynamic measurement interpretation Laboratory date review and interpretation Discussion of care plans with patient and family Discussion of patients care with primary medical team, and consulting services Decision to obtain further radiologic evaluation after consideration of risk/ benefit ratio Review of most recent microbiology results with assessment and modification of antimicrobial coverage. Plan outlined above discussed with patient/family, PREDATORY GAME HUNTER, ICU team, and involved physicians/consultants Subjective Date patient seen: Mar 05, 2019 Constitutional: Denies: no symptoms, chills, diaphoresis, fever, malaise, weakness, other HEENT: Denies: no symptoms, eye pain, blurred vision, tearing, double vision, ear pain, ear discharge, nose pain, nose congestion, throat pain, throat swelling, mouth pain, mouth swelling, other Cardiovascular: Denies: no symptoms, chest pain, edema, irregular heart rate, lightheadedness, palpitations, syncope, other Respiratory: Denies: no symptoms, cough, orthopnea, shortness of breath, SOB with excertion, SOB at rest, sputum, stridor, wheezing, other Gastrointestinal/Abdominal: Denies: no symptoms, abdomen distended, abdominal pain, black stools, tarry stools, blood in stool, constipated, diarrhea, difficulty swallowing, nausea, poor appetite, poor fluid intake, rectal bleeding , vomiting, other Genitourinary: Denies: no symptoms, burning, discharge, frequency, flank pain, hematuria, incontinence, pain, urgency, other Neurologic/Psychiatric: Denies: no symptoms, anxiety, depressed, emotional problems, headache, numbness, paresthesia, pre-existing deficit, seizure, tingling, tremors, weakness, other Endocrine: Denies: no symptoms, excessive sweating, flushing, intolerance to cold, intolerance to heat, increased hunger, increased thirst, increased urine, unexplained weight gain, unexplained weight loss, other Hematologic/Lymphatic: Denies: no symptoms, anemia, easy bleeding, easy bruising, other Allergies: Coded Allergies: No Known Allergies (Unverified , 02/27/19) Subjective This morning the patient was found to desaturate to 80s. Rapid response called. Placed on non-rebreather. Tachycardic to 130s. Other vitals stable. Endorsed SOB , constant, 3/10. Denies chest pain, cough, fever, chills, diarrhea, nausea. Continues to improve. More awake and alert, able to sit up in bed. CTPA ordered negative for pulmonary embolism but showed large right lower lobe consolidation. Patient more altered, but arousable Objective Last 24 Hour Vital Signs Date Time Temp Pulse Resp B/P (MAP) Pulse Ox O2 Delivery O2 Flow Rate FiO2 03/05/19 13:01 128 24 98 High Flow 40.0 100 03/05/19 13:00 Room Air 03/05/19 12:00 134 03/05/19 12:00 102.0 133 32 137/90 (106) 98 03/05/19 10:35 96 03/05/19 09:00 Room Air 03/05/19 08:00 99.8 113 20 134/80 (98) 89 03/05/19 08:00 111 03/05/19 04:00 100 03/05/19 04:00 99.4 100 20 132/89 (103) 95 03/05/19 00:00 Room Air 03/05/19 00:00 99.3 104 20 145/75 (98) 94 03/05/19 00:00 102 03/04/19 20:52 99.1 03/04/19 20:52 99.1 03/04/19 20:00 Room Air 03/04/19 20:00 100.6 110 24 137/93 (108) 98 03/04/19 20:00 119 03/04/19 16:00 Room Air 03/04/19 16:00 99.7 107 30 137/84 (101) 94 03/04/19 15:40 113 Intake and Output 03/04/19 03/05/19 18:59 06:59 Intake Total 1544.6 ml 1485 ml Output Total 800 ml 900 ml Balance 744.6 ml 585 ml Intake Oral 240 ml IV Total 1304.6 ml 1485 ml Output Urine Total 800 ml 900 ml # Voids 1 # Bowel Movements 1 Laboratory Tests 03/05/19 03:30: White Blood Count 9.0, Red Blood Count 3.75L, Hemoglobin 9.0L, Hematocrit 28.7L , Mean Corpuscular Volume 77L, Mean Corpuscular Hemoglobin 23.9L, Mean Corpuscular Hemoglobin Concent 31.2L, Red Cell Distribution Width 14.7, Platelet Count 379, Mean Platelet Volume 4.7L, Neutrophils (%) (Auto) 72.8, Lymphocytes (%) (Auto) 13.6L, Monocytes (%) (Auto) 10.5H, Eosinophils (%) (Auto ) 2.5, Basophils (%) (Auto) 0.6, Sodium Level 146H, Potassium Level 2.8L, Chloride Level 114H, Carbon Dioxide Level 24, Anion Gap 7, Blood Urea Nitrogen 3L, Creatinine 0.4L, Estimat Glomerular Filtration Rate > 60, Glucose Level 80, Calcium Level 6.4#L, Phosphorus Level 2.5, Magnesium Level 1.4L, Iron Level 19L , Total Iron Binding Capacity 221L, Percent Iron Saturation 9L, Unsaturated Iron Binding 202, Ferritin 57 03/05/19 09:28: Arterial Blood pH 7.462H, Arterial Blood Partial Pressure CO2 35.9, Arterial Blood Partial Pressure O2 59.7L, Arterial Blood HCO3 25.1, Arterial Blood Oxygen Saturation 90.6L, Arterial Blood Base Excess 1.6, Anselmo Test Positive 03/05/19 12:30: Sodium Level 138, Potassium Level 3.9, Chloride Level 102, Carbon Dioxide Level 28, Anion Gap 8, Blood Urea Nitrogen 5L, Creatinine 0.6, Estimat Glomerular Filtration Rate > 60, Glucose Level 108H, Calcium Level 9.3#, D-Dimer 0.68H, Lactic Acid Level 0.80, Total Bilirubin 0.4, Aspartate Amino Transf (AST/SGOT) 16, Alanine Aminotransferase (ALT/SGPT) 22, Alkaline Phosphatase 55, Total Creatine Kinase 60, Creatine Kinase MB < 0.5, Creatine Kinase MB Relative Index , Troponin I 0.002, Pro-B-Type Natriuretic Peptide 42, Total Protein 8.0, Albumin 3.2L, Globulin 4.8, Albumin/Globulin Ratio 0.7L 03/05/19 14:10: White Blood Count 22.3#*H, Red Blood Count 5.00, Hemoglobin 12.4#, Hematocrit 38.5#, Mean Corpuscular Volume 77L, Mean Corpuscular Hemoglobin 24.8L, Mean Corpuscular Hemoglobin Concent 32.2, Red Cell Distribution Width 14.9H, Platelet Count 537H, Mean Platelet Volume 4.9L, Neutrophils (%) (Auto) , Lymphocytes (%) (Auto) , Monocytes (%) (Auto) , Eosinophils (%) (Auto) , Basophils (%) (Auto) , Phosphorus Level 4.2, Magnesium Level 1.8, Differential Total Cells Counted 100, Neutrophils % (Manual) 77H, Lymphocytes % (Manual) 10L , Monocytes % (Manual) 13H, Eosinophils % (Manual) 0, Basophils % (Manual) 0, Band Neutrophils 0, Platelet Estimate IncreasedH, Platelet Morphology Normal Height (Feet): 5 Height (Inches): 7.00 Weight (Pounds): 228 General Appearance: WD/WN, confused, moderate distress EENT: PERRL/EOMI Neck: non-tender, normal alignment, supple Cardiovascular: normal peripheral pulses, normal rate, regular rhythm, no JVD Respiratory/Chest: other - rales at RLL, no wheezes, tachypneic Abdomen: normal bowel sounds, non tender, soft Extremities: other - no LE edema bilatearlly 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 Mar 05, 2019 15:37
[2019-03-05 16:00] VITALS: BP 118/68
--- NOTE | 2019-03-05 16:00 | Consultation ---
DATE OF CONSULTATION: 03/05/2019 CARDIOLOGY CONSULTATION CONSULTING PHYSICIAN: Donaldo Varghese M.D. REFERRING PHYSICIAN: Yao Marmolejo M.D. REASON FOR CONSULTATION: Acute shortness of breath. HISTORY OF PRESENT ILLNESS: The patient is a 23-year-old lady who was admitted on 02/27/2019 with altered mental status and fevers. She had that showed 45 white cells and 96% lymphocytes culture was negative. The patient also had a rash. The patient was also lethargic. The patient was evaluated by Dr. Arellano and was treated for likely viral meningitis. Today, the patient suddenly became shortness of breath and was placed on non-rebreather facemask. The blood gas at 9:28 a.m. today showed a pH of 7.46 with a pCO2 of 36 and pO2 for only 59.7. Cardiology consultation was requested for further evaluation. At the time of my evaluation, the patient is still short of breath, but specifically denies any chest pain. REVIEW OF SYSTEMS: Negative other than what is mentioned in the history of present illness. PAST MEDICAL HISTORY: As mentioned above. FAMILY HISTORY: Noncontributory. PHYSICAL EXAMINATION: VITAL SIGNS: Show blood pressure of 132/89, pulse is 100, respirations 18, temperature 99.4. HEAD AND NECK: Showed no JVD. LUNGS: Decreased breath sounds. CARDIOVASCULAR: Shows tachycardic. S1 and S2 with no gallop or murmur. ABDOMEN: Soft. EXTREMITIES: No pitting edema. DIAGNOSTIC AND LABORATORY DATA: EKG showed normal sinus rhythm, left atrial enlargement. Lower extremity duplex showed no evidence of DVT. Labs show sodium 142, potassium 2.6, BUN of 3, creatinine of 0.4, and glucose of 80. White count is 9, hemoglobin is 9, hematocrit 28.7, and platelet count is 379. ASSESSMENT AND PLAN: 1. Acute shortness of breath. Lower extremity duplex is negative for DVT, however, this is sudden change. She is only 23 years old, likelihood of acute coronary event is highly unlikely. This patient had a normal EKG. Repeat the EKG and get a brain natriuretic peptide and stat echocardiogram. We will also order a stat chest CT angio to rule out acute pulmonary embolism. 2. Likely viral meningitis. Further management per Dr. Arellano. The patient is on acyclovir. 3. Maculopapular rash. It is of note, the patient's HIV is negative. 4. Microcytic anemia. 5. Hypokalemia. Thank you very much, Dr. Marmolejo, for allowing me to participate in the care of this patient. Please do not hesitate to contact me for any questions regarding my evaluation. Case was discussed with the patient's nurse and charge nurse as well as Dr. Lobo Jay. Donaldo Varghese M.D. DR: LUPILLO JOB#: [id number] CC:
--- NOTE | 2019-03-05 16:00 | NUR ---
NURSE NOTES: NGT inserted. Pt trying to remove NG so bilateral soft wrist restraints applied. Will continue to monitor.
[2019-03-05 16:42] LABS: BILIRUBIN, URINE NEGATIVE (NEGATIVE); COLOR,URINE PALE YELLOW; GLUCOSE, URINE (UA) NEGATIVE (NEGATIVE); KETONES,URINE NEGATIVE (NEGATIVE); LEUKOCYTE ESTERASE ,URINE 1+ (NEGATIVE); NITRITE,URINE NEGATIVE (NEGATIVE); PH,URINE 6 (4.5-8.0); PROTEIN,URINE 1+ (NEGATIVE); UROBILINOGEN,URINE NORMAL MG/DL (0.0-1.0)
--- NOTE | 2019-03-05 16:43 | Consultation ---
History of Present Illness General Date patient seen: Mar 05, 2019 Time patient seen: 16:37 Chief Complaint: Fever Referring physician: PMG Reason for Consultation: Hypoxemia Present Illness HPI 23 F a/w AMS 2/2 WNV acutely became hypoxemic today ---> NRBFM, + weak cough, + SOB, no wheezing, no F + C no CP no NVDC Mild elevated d-dimer, CT-A neg for PE + RLL infiltrate. No prior h/o lung disease Allergies: Coded Allergies: No Known Allergies (Unverified , 02/27/19) Medication History Scheduled No Known Medications* (NKM - No Known Medications*), 0 ., (Reported) Medications Narrative Active Scripts Medications Dose Route/Sig Max Daily Dose Days Date Category NKM - No Known Medications* (No Known Medications*) . 0 . 02/27/19 Reported Patient History Limited by: medical condition History Provided By: Patient Healthcare decision maker Resuscitation status Full Code Advanced Directive on File Past Medical/Surgical History Past Medical/Surgical History: (1) Meningitis (2) Acute febrile illness (3) Fever (4) Maculopapular rash, generalized (5) Aspiration pneumonia (6) Acute respiratory failure with hypoxia Review of Systems All Other Systems: negative except mentioned in HPI Physical Exam General Appearance: other - Weak, AAOx3 Lines, tubes and drains: PICC HEENT: normocephalic, atraumatic, anicteric, mucous membranes moist Neck: non-tender, normal alignment, supple, normal inspection Respiratory/Chest: no respiratory distress, no accessory muscle use, rhonchi - left Cardiovascular/Chest: normal peripheral pulses, normal rate, regular rhythm Abdomen: normal bowel sounds, non tender, soft, no organomegaly, no mass Musculoskeletal: other - No C/C/E Last 24 Hour Vital Signs Date Time Temp Pulse Resp B/P (MAP) Pulse Ox O2 Delivery O2 Flow Rate FiO2 03/05/19 16:00 136 03/05/19 16:00 100.5 137 32 118/68 (85) 97 03/05/19 15:20 98 High Flow 30.0 60 03/05/19 13:01 128 24 98 High Flow 40.0 100 03/05/19 13:00 Room Air 03/05/19 12:00 134 03/05/19 12:00 102.0 133 32 137/90 (106) 98 03/05/19 11:48 134 03/05/19 10:35 96 03/05/19 09:00 Room Air 03/05/19 08:00 99.8 113 20 134/80 (98) 89 03/05/19 08:00 111 03/05/19 04:00 100 03/05/19 04:00 99.4 100 20 132/89 (103) 95 03/05/19 00:00 Room Air 03/05/19 00:00 99.3 104 20 145/75 (98) 94 03/05/19 00:00 102 03/04/19 20:52 99.1 03/04/19 20:52 99.1 03/04/19 20:00 Room Air 03/04/19 20:00 100.6 110 24 137/93 (108) 98 03/04/19 20:00 119 Intake and Output 03/04/19 03/05/19 18:59 06:59 Intake Total 1544.6 ml 1485 ml Output Total 800 ml 900 ml Balance 744.6 ml 585 ml Intake Oral 240 ml IV Total 1304.6 ml 1485 ml Output Urine Total 800 ml 900 ml # Voids 1 # Bowel Movements 1 Laboratory Tests Test 03/05/19 03:30 03/05/19 09:28 03/05/19 12:30 03/05/19 14:10 White Blood Count 9.0 K/UL (4.8-10.8) 22.3 K/UL (4.8-10.8) #*H Red Blood Count 3.75 M/UL (4.20-5.40) L 5.00 M/UL (4.20-5.40) Hemoglobin 9.0 G/DL (12.0-16.0) L 12.4 G/DL (12.0-16.0) # Hematocrit 28.7 % (37.0-47.0) L 38.5 % (37.0-47.0) # Mean Corpuscular Volume 77 FL (80-99) L 77 FL (80-99) L Mean Corpuscular Hemoglobin 23.9 PG (27.0-31.0) L 24.8 PG (27.0-31.0) L Mean Corpuscular Hemoglobin Concent 31.2 G/DL (32.0-36.0) L 32.2 G/DL (32.0-36.0) Red Cell Distribution Width 14.7 % (11.6-14.8) 14.9 % (11.6-14.8) H Platelet Count 379 K/UL (150-450) 537 K/UL (150-450) H Mean Platelet Volume 4.7 FL (6.5-10.1) L 4.9 FL (6.5-10.1) L Neutrophils (%) (Auto) 72.8 % (45.0-75.0) % (45.0-75.0) Lymphocytes (%) (Auto) 13.6 % (20.0-45.0) L % (20.0-45.0) Monocytes (%) (Auto) 10.5 % (1.0-10.0) H % (1.0-10.0) Eosinophils (%) (Auto) 2.5 % (0.0-3.0) % (0.0-3.0) Basophils (%) (Auto) 0.6 % (0.0-2.0) % (0.0-2.0) Sodium Level 146 MMOL/L (136-145) H 138 MMOL/L (136-145) Potassium Level 2.8 MMOL/L (3.5-5.1) L 3.9 MMOL/L (3.5-5.1) Chloride Level 114 MMOL/L (98-107) H 102 MMOL/L (98-107) Carbon Dioxide Level 24 MMOL/L (21-32) 28 MMOL/L (21-32) Anion Gap 7 mmol/L (5-15) 8 mmol/L (5-15) Blood Urea Nitrogen 3 mg/dL (7-18) L 5 mg/dL (7-18) L Creatinine 0.4 MG/DL (0.55-1.30) L 0.6 MG/DL (0.55-1.30) Estimat Glomerular Filtration Rate > 60 mL/min (>60) > 60 mL/min (>60) Glucose Level 80 MG/DL (74-106) 108 MG/DL (74-106) H Calcium Level 6.4 MG/DL (8.5-10.1) #L 9.3 MG/DL (8.5-10.1) # Phosphorus Level 2.5 MG/DL (2.5-4.9) 4.2 MG/DL (2.5-4.9) Magnesium Level 1.4 MG/DL (1.8-2.4) L 1.8 MG/DL (1.8-2.4) Iron Level 19 ug/dL (50-175) L Total Iron Binding Capacity 221 ug/dL (250-450) L Percent Iron Saturation 9 % (15-50) L Unsaturated Iron Binding 202 ug/dL (112-346) Ferritin 57 NG/ML (8-388) Arterial Blood pH 7.462 (7.350-7.450) Arterial Blood Partial Pressure CO2 35.9 mmHg (35.0-45.0) Arterial Blood Partial Pressure O2 59.7 mmHg (75.0-100.0) L Arterial Blood HCO3 25.1 mmol/L (22.0-26.0) Arterial Blood Oxygen Saturation 90.6 % (95-100) L Arterial Blood Base Excess 1.6 (-2-2) Anselmo Test Positive D-Dimer 0.68 mg/L FEU (0.00-0.49) H Lactic Acid Level 0.80 mmol/L (0.4-2.0) Total Bilirubin 0.4 MG/DL (0.2-1.0) Aspartate Amino Transf (AST/SGOT) 16 U/L (15-37) Alanine Aminotransferase (ALT/SGPT) 22 U/L (12-78) Alkaline Phosphatase 55 U/L (46-116) Total Creatine Kinase 60 U/L (26-308) Creatine Kinase MB < 0.5 NG/ML (0.0-3.6) Creatine Kinase MB Relative Index Troponin I 0.002 ng/mL (0.000-0.056) Pro-B-Type Natriuretic Peptide 42 pg/mL (0-125) Total Protein 8.0 G/DL (6.4-8.2) Albumin 3.2 G/DL (3.4-5.0) L Globulin 4.8 g/dL Albumin/Globulin Ratio 0.7 (1.0-2.7) L Differential Total Cells Counted 100 Neutrophils % (Manual) 77 % (45-75) H Lymphocytes % (Manual) 10 % (20-45) L Monocytes % (Manual) 13 % (1-10) H Eosinophils % (Manual) 0 % (0-3) Basophils % (Manual) 0 % (0-2) Band Neutrophils 0 % (0-8) Platelet Estimate Increased H Platelet Morphology Normal Height (Feet): 5 Height (Inches): 7.00 Weight (Pounds): 228 Medications Current Medications Medications (Trade) Dose Ordered Sig/Kandi Route PRN Reason Start Time Stop Time Status Last Admin Dose Admin Acetaminophen (Tylenol) 650 mg Q6H PRN ORAL Mild Pain/Temp > 100.5 03/05/19 11:55 03/30/19 11:54 Acyclovir 750 mg/ Sodium Chloride 275 ml @ 275 mls/hr Q8H IV 03/05/19 14:00 04/04/19 13:59 03/05/19 14:26 Chlorhexidine Gluconate (Mickie-Hex 2%) 1 applic DAILY@2000 TOPIC 03/05/19 20:00 03/31/19 19:59 Dextrose (Dextrose 50%) 25 ml Q30M PRN IV Hypoglycemia 03/05/19 12:00 03/29/19 18:29 Dextrose (Dextrose 50%) 50 ml Q30M PRN IV Hypoglycemia 03/05/19 12:00 03/29/19 18:29 Docusate Sodium (Colace) 100 mg EVERY 12 HOURS ORAL 03/05/19 21:00 03/29/19 20:59 Doxycycline Hyclate 100 mg/ Dextrose 110 ml @ 110 mls/hr Q12HR IV 03/05/19 21:00 03/07/19 14:29 Heparin Sodium (Porcine) (Heparin 5000 units/ml) 5,000 units EVERY 12 HOURS SUBQ 03/05/19 21:00 03/29/19 20:59 Iohexol (Omnipaque) 100 mg NOW PRN INJ Radiology Procedure 03/06/19 09:45 03/07/19 09:35 Ondansetron HCl (Zofran) 4 mg Q6H PRN IVP Nausea & Vomiting 03/05/19 11:57 03/29/19 11:56 Oseltamivir Phosphate (Tamiflu) 75 mg TWICE A DAY ORAL 03/05/19 18:00 03/08/19 18:01 Piperacillin Sod/ Tazobactam Sod 3.375 gm/Sodium Chloride 110 ml @ 27.5 mls/hr EVERY 8 HOURS IVPB 03/05/19 14:00 03/10/19 13:59 03/05/19 14:25 Sodium Chloride 1,000 ml @ 100 mls/hr Q10H IV 03/05/19 15:45 04/04/19 15:44 03/05/19 16:03 Sodium Chloride 1,000 ml @ 999 mls/hr Q1H1M ONCE IV 03/05/19 15:45 03/05/19 16:45 03/05/19 16:03 Vancomycin HCl (Vanco rx to dose) 1 ea DAILY PRN MISC Per rx protocol 03/05/19 12:15 04/04/19 12:14 Vancomycin/Sodium Chloride 275 ml @ 137.5 mls/ hr Q8H IVPB 03/05/19 19:00 03/10/19 18:59 Assessment/Plan Problem List: (1) 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) ICD Codes: A92.30 - [place] Nile virus infection, unspecified SNOMED: 254424517 (2) Aspiration pneumonia ICD Codes: J69.0 - Pneumonitis due to inhalation of food and vomit SNOMED: 493017888 (3) Acute respiratory failure with hypoxia ICD Codes: J96.01 - Acute respiratory failure with hypoxia SNOMED: 38278467, 378054298 (4) Meningitis ICD Codes: G03.9 - Meningitis, unspecified SNOMED: 9886460 (5) Fever ICD Codes: R50.9 - Fever, unspecified SNOMED: 259919609 Assessment/Plan: Optimize pulmonary hygiene/mobilize as tolerated Titrate down FiO2 to keep SaO2 > 90% RTC and PRN HHN's CPT Abx (Zosyn, Doxy, Vanco) + Acyclovir and Tamiflu per ID Monitor volumes and renal function, mIVF NPO, NGTF's, 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
[2019-03-05 16:45] LABS: APPEARANCE,URINE SLIGHTLY CLOUDY
[2019-03-05] MEDS ORDERED: Albuterol/Ipratropium 3ml neb HHN PRN (16:45)
--- NOTE | 2019-03-05 18:20 | Infectious Diseases Prog Note ---
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 rickettsial infection, ? lyme or syphilis 3) sob, hypoxia - likely aspiration event, sepsis, fevers, leukocytosis, CT chest c/w pna but neg for PE 4) allergies - nkda, sh-negative, fh-nc, mar noted 5) pmh otherwise negative 6) d/w RN P) 1) acyclovir iv - day # 5, tamiflu, doxycycline - day # 5, supportive care 2) f/u on CSF studies and serology 3) vancomycin and zsoyn started for aspiration pna/HCAP 4) d/w Dr. Lester 5) will f/u 6) repeat WNV for confirmation per department of health recommendation Subjective Constitutional: Reports: fever, fatigue HEENT: Reports: other - + ngt Respiratory: Reports: shortness of breath - mild Cardiovascular: Denies: chest pain Gastrointestinal/Abdominal: Denies: nausea, vomiting, diarrhea Genitourinary: Reports: other - no espino Neurologic: Denies: headache Psychiatric: Denies: depression Skin: Reports: rash - stable Hematologic: Denies: bleeding Musculoskeletal: Denies: pain Allergies: Coded Allergies: No Known Allergies (Unverified , 02/27/19) Objective Vital Signs Last 24 Hour Vital Signs Date Time Temp Pulse Resp B/P (MAP) Pulse Ox O2 Delivery O2 Flow Rate FiO2 03/05/19 16:00 136 03/05/19 16:00 100.5 137 32 118/68 (85) 97 03/05/19 15:20 98 High Flow 30.0 60 03/05/19 13:01 128 24 98 High Flow 40.0 100 03/05/19 13:00 Room Air 03/05/19 12:00 134 03/05/19 12:00 102.0 133 32 137/90 (106) 98 03/05/19 11:48 134 03/05/19 10:35 96 03/05/19 09:00 Room Air 03/05/19 08:00 99.8 113 20 134/80 (98) 89 03/05/19 08:00 111 03/05/19 04:00 100 03/05/19 04:00 99.4 100 20 132/89 (103) 95 10/4/19 00:00 Room Air 03/05/19 00:00 99.3 104 20 145/75 (98) 94 03/05/19 00:00 102 03/04/19 20:52 99.1 03/04/19 20:52 99.1 03/04/19 20:00 Room Air 03/04/19 20:00 100.6 110 24 137/93 (108) 98 03/04/19 20:00 119 Height (Feet): 5 Height (Inches): 7.00 Weight (Pounds): 228 General Appearance: WD/WN, other - more alert and orientated HEENT: normocephalic, atraumatic, anicteric, mucous membranes moist, EOMI, supple, no JVD, other - + ngt Respiratory/Chest: no accessory muscle use, crackles/rales, rhonchi - bilaterally Cardiovascular: normal rate, regular rhythm, no gallop/murmur, no JVD Abdomen: normal bowel sounds, soft, non tender, no organomegaly, non distended Genitourinary: other - no espino Extremities: no cyanosis Skin: no rash 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 There is no adenopathy, pleural or pericardial effusions are identified. There is no aortic dissection or aneurysm identified within the chest. There is dense right basilar consolidation. Consider pneumonia. Mild posterior basal atelectasis also demonstrated on the left. There is extensive artifact limiting evaluation. IMPRESSION: No evidence of pulmonary embolus, aortic dissection or aneurysm. Suspected pneumonia at the right lung base. Correlate clinically. Limited evaluation due to artifact Microbiology Date/Time Source Procedure Growth Status 02/27/19 14:15 Blood Blood Culture - Final NO GROWTH AFTER 5 DAYS Complete 02/27/19 19:04 Cerebral Spinal Fluid Gram Stain - Final Complete 02/27/19 19:04 Cerebral Spinal Fluid CSF Culture - Final NO GROWTH Complete 02/27/19 14:45 Nasal Nares - Final Complete 02/27/19 14:45 Nasal Nares - Final Complete Microbiology Date/Time Source Procedure Growth Status 02/27/19 14:15 Blood Blood Culture - Final NO GROWTH AFTER 5 DAYS Complete 02/27/19 19:04 Cerebral Spinal Fluid Gram Stain - Final Complete 02/27/19 19:04 Cerebral Spinal Fluid CSF Culture - Final NO GROWTH Complete 02/27/19 14:45 Nasal Nares - Final Complete 02/27/19 14:45 Nasal Nares - Final Complete Laboratory Tests Test 03/05/19 03:30 03/05/19 09:28 03/05/19 12:30 03/05/19 14:10 White Blood Count 9.0 K/UL (4.8-10.8) 22.3 K/UL (4.8-10.8) #*H Red Blood Count 3.75 M/UL (4.20-5.40) L 5.00 M/UL (4.20-5.40) Hemoglobin 9.0 G/DL (12.0-16.0) L 12.4 G/DL (12.0-16.0) # Hematocrit 28.7 % (37.0-47.0) L 38.5 % (37.0-47.0) # Mean Corpuscular Volume 77 FL (80-99) L 77 FL (80-99) L Mean Corpuscular Hemoglobin 23.9 PG (27.0-31.0) L 24.8 PG (27.0-31.0) L Mean Corpuscular Hemoglobin Concent 31.2 G/DL (32.0-36.0) L 32.2 G/DL (32.0-36.0) Red Cell Distribution Width 14.7 % (11.6-14.8) 14.9 % (11.6-14.8) H Platelet Count 379 K/UL (150-450) 537 K/UL (150-450) H Mean Platelet Volume 4.7 FL (6.5-10.1) L 4.9 FL (6.5-10.1) L Neutrophils (%) (Auto) 72.8 % (45.0-75.0) % (45.0-75.0) Lymphocytes (%) (Auto) 13.6 % (20.0-45.0) L % (20.0-45.0) Monocytes (%) (Auto) 10.5 % (1.0-10.0) H % (1.0-10.0) Eosinophils (%) (Auto) 2.5 % (0.0-3.0) % (0.0-3.0) Basophils (%) (Auto) 0.6 % (0.0-2.0) % (0.0-2.0) Sodium Level 146 MMOL/L (136-145) H 138 MMOL/L (136-145) Potassium Level 2.8 MMOL/L (3.5-5.1) L 3.9 MMOL/L (3.5-5.1) Chloride Level 114 MMOL/L (98-107) H 102 MMOL/L (98-107) Carbon Dioxide Level 24 MMOL/L (21-32) 28 MMOL/L (21-32) Anion Gap 7 mmol/L (5-15) 8 mmol/L (5-15) Blood Urea Nitrogen 3 mg/dL (7-18) L 5 mg/dL (7-18) L Creatinine 0.4 MG/DL (0.55-1.30) L 0.6 MG/DL (0.55-1.30) Estimat Glomerular Filtration Rate > 60 mL/min (>60) > 60 mL/min (>60) Glucose Level 80 MG/DL (74-106) 108 MG/DL (74-106) H Calcium Level 6.4 MG/DL (8.5-10.1) #L 9.3 MG/DL (8.5-10.1) # Phosphorus Level 2.5 MG/DL (2.5-4.9) 4.2 MG/DL (2.5-4.9) Magnesium Level 1.4 MG/DL (1.8-2.4) L 1.8 MG/DL (1.8-2.4) Iron Level 19 ug/dL (50-175) L Total Iron Binding Capacity 221 ug/dL (250-450) L Percent Iron Saturation 9 % (15-50) L Unsaturated Iron Binding 202 ug/dL (112-346) Ferritin 57 NG/ML (8-388) Arterial Blood pH 7.462 (7.350-7.450) Arterial Blood Partial Pressure CO2 35.9 mmHg (35.0-45.0) Arterial Blood Partial Pressure O2 59.7 mmHg (75.0-100.0) L Arterial Blood HCO3 25.1 mmol/L (22.0-26.0) Arterial Blood Oxygen Saturation 90.6 % (95-100) L Arterial Blood Base Excess 1.6 (-2-2) Anselmo Test Positive D-Dimer 0.68 mg/L FEU (0.00-0.49) H Lactic Acid Level 0.80 mmol/L (0.4-2.0) Total Bilirubin 0.4 MG/DL (0.2-1.0) Aspartate Amino Transf (AST/SGOT) 16 U/L (15-37) Alanine Aminotransferase (ALT/SGPT) 22 U/L (12-78) Alkaline Phosphatase 55 U/L (46-116) Total Creatine Kinase 60 U/L (26-308) Creatine Kinase MB < 0.5 NG/ML (0.0-3.6) Creatine Kinase MB Relative Index Troponin I 0.002 ng/mL (0.000-0.056) Pro-B-Type Natriuretic Peptide 42 pg/mL (0-125) Total Protein 8.0 G/DL (6.4-8.2) Albumin 3.2 G/DL (3.4-5.0) L Globulin 4.8 g/dL Albumin/Globulin Ratio 0.7 (1.0-2.7) L Differential Total Cells Counted 100 Neutrophils % (Manual) 77 % (45-75) H Lymphocytes % (Manual) 10 % (20-45) L Monocytes % (Manual) 13 % (1-10) H Eosinophils % (Manual) 0 % (0-3) Basophils % (Manual) 0 % (0-2) Band Neutrophils 0 % (0-8) Platelet Estimate Increased H Platelet Morphology Normal West Nile Virus IgG Antibody Pending West Nile Virus IgM Antibody Pending Test 03/05/19 16:00 Urine Color Pale yellow Urine Appearance Slightly cloudy Urine pH 6 (4.5-8.0) Urine Specific [place] 1.005 (1.005-1.035) Urine Protein 1+ (NEGATIVE) H Urine Glucose (UA) Negative (NEGATIVE) Urine Ketones Negative (NEGATIVE) Urine Blood 2+ (NEGATIVE) H Urine Nitrite Negative (NEGATIVE) Urine Bilirubin Negative (NEGATIVE) Urine Urobilinogen Normal MG/DL (0.0-1.0) Urine Leukocyte Esterase 1+ (NEGATIVE) H Urine RBC 10-15 /HPF (0 - 2) H Urine WBC 5-10 /HPF (0 - 2) H Urine Squamous Epithelial Cells Few /LPF (NONE/OCC) Urine Amorphous Sediment Few /LPF (NONE) H Urine Bacteria Few /HPF (NONE) Current Medications Medications (Trade) Dose Ordered Sig/Kandi Route PRN Reason Start Time Stop Time Status Last Admin Dose Admin Acetaminophen (Tylenol) 650 mg Q6H PRN ORAL Mild Pain/Temp > 100.5 03/05/19 11:55 03/30/19 11:54 Acyclovir 750 mg/ Sodium Chloride 275 ml @ 275 mls/hr Q8H IV 03/05/19 14:00 04/04/19 13:59 03/05/19 14:26 Albuterol/ Ipratropium (Albuterol/ Ipratropium) 3 ml Q4H PRN HHN Shortness of Breath 03/05/19 16:45 03/10/19 16:44 Albuterol/ Ipratropium (Albuterol/ Ipratropium) 3 ml Q6HRT HHN 03/05/19 19:00 03/10/19 18:59 Chlorhexidine Gluconate (Mickie-Hex 2%) 1 applic DAILY@2000 TOPIC 03/05/19 20:00 03/31/19 19:59 Dextrose (Dextrose 50%) 25 ml Q30M PRN IV Hypoglycemia 03/05/19 12:00 03/29/19 18:29 Dextrose (Dextrose 50%) 50 ml Q30M PRN IV Hypoglycemia 03/05/19 12:00 03/29/19 18:29 Docusate Sodium (Colace) 100 mg EVERY 12 HOURS ORAL 03/05/19 21:00 03/29/19 20:59 Doxycycline Hyclate 100 mg/ Dextrose 110 ml @ 110 mls/hr Q12HR IV 03/05/19 21:00 03/07/19 14:29 Heparin Sodium (Porcine) (Heparin 5000 units/ml) 5,000 units EVERY 12 HOURS SUBQ 03/05/19 21:00 03/29/19 20:59 Iohexol (Omnipaque) 100 mg NOW PRN INJ Radiology Procedure 03/06/19 09:45 03/07/19 09:35 Ondansetron HCl (Zofran) 4 mg Q6H PRN IVP Nausea & Vomiting 10/4/19 11:57 03/29/19 11:56 Oseltamivir Phosphate (Tamiflu) 75 mg TWICE A DAY ORAL 03/05/19 18:00 03/08/19 18:01 Piperacillin Sod/ Tazobactam Sod 3.375 gm/Sodium Chloride 110 ml @ 27.5 mls/hr EVERY 8 HOURS IVPB 03/05/19 14:00 03/10/19 13:59 03/05/19 14:25 Sodium Chloride 1,000 ml @ 100 mls/hr Q10H IV 03/05/19 15:45 04/04/19 15:44 03/05/19 16:03 Vancomycin HCl (Vanco rx to dose) 1 ea DAILY PRN MISC Per rx protocol 03/05/19 12:15 04/04/19 12:14 Vancomycin/Sodium Chloride 275 ml @ 137.5 mls/ hr Q8H IVPB 03/05/19 19:00 03/10/19 18:59 Alejandro Arellano MD Mar 05, 2019 18:20
[2019-03-05] MEDS: Vancomycin 1.5gm/NS Premix q24h IVPB SCH (18:33)
--- NOTE | 2019-03-05 19:16 | NUR ---
NURSE NOTES: Ryan JIMENEZ Addendum: 03/05/19 at 1917 by Lori Barton RN Hand off given to Ryan JIMENEZ
--- NOTE | 2019-03-05 19:50 | NUR ---
NURSE NOTES: PATIENT DROWSY, RESPONSE TO NAME, ORIENTED X2 AT THIS TIME, CONFUSED SITUATION AND TIME AT THIS TIME, DENIED SOB ON HIGH FLOW O2 40%, O2 SATURATION 99% NOTED, NO BOWEL MOVEMENT STATUS, ON PURE WICK STATUS, PICC LINE TO RIGHT UPPER ARM, INTACT AND PATENT, ONGOING NS AT 100ML/HR VIA PICC LINE, PROVIDED CALL LIGHT WITHIN REACH, MADE LOWER BED POSITION.
[2019-03-05] MEDS: Albuterol/Ipratropium 3ml neb HHN SCH (19:53)
[2019-03-05 20:00] VITALS: BP 137/83
[2019-03-05] MEDS: Dyna-Hex 2% Top Sol 2oz TOPIC SCH (20:00)
[2019-03-05] MEDS ORDERED: Dyna-Hex 2% Top Sol 2oz TOPIC SCH (20:00)
[2019-03-05] MEDS: Heparin 5000 units/ml inj SUBQ SCH (20:38)
[2019-03-05] MEDS: Doxycycline Monohydrate 100mg ORAL SCH (21:00)
[2019-03-06] VITALS: BP 115/69
--- NOTE | 2019-03-06 | NUR ---
NURSE NOTES: ORAL CARE WAS DONE, RELEASED RESTRAINTS AND REAPPLIED FOR SAFETY.
[2019-03-06] MEDS: Albuterol/Ipratropium 3ml neb HHN SCH ×4 (01:19→19:27)
--- NOTE | 2019-03-06 01:20 | NUR ---
NURSE NOTES: O2 SATURATION 100% NOTED, CHANGED TO O2 3LPM VIA NC BY THE RT.
--- NOTE | 2019-03-06 02:00 | NUR ---
NURSE NOTES: NO SOB OR DISTRESS NOTED AT THIS TIME, O2 SATURATION 100% NOTED.
[2019-03-06] MEDS: Vancomycin 1.5gm/NS Premix q24h IVPB SCH ×3 (02:32→19:12)
[2019-03-06 04:00] VITALS: BP 127/63
--- NOTE | 2019-03-06 05:00 | NUR ---
NURSE NOTES: MORNING CARE WAS DONE.
[2019-03-06 05:30] LABS: BASOPHILS % (AUTO) 0.9 % (0.0-2.0); EOSINOPHILS % (AUTO) 1.8 % (0.0-3.0); HEMATOCRIT 33.8 % (37.0-47.0); HEMOGLOBIN 10.7 G/DL (12.0-16.0); LYMPHOCYTES % (AUTO) 13.7 % (20.0-45.0); MEAN CORPUSCULAR VOLUME 77 FL (80-99); MONOCYTES % (AUTO) 9.4 % (1.0-10.0); NEUTROPHILS % (AUTO) 74.2 % (45.0-75.0); PLATELET COUNT 482 K/UL (150-450); RED BLOOD COUNT 4.37 M/UL (4.20-5.40); RED CELL DISTRIBUTION WIDTH 15.3 % (11.6-14.8); WHITE BLOOD COUNT 16.9 K/UL (4.8-10.8)
[2019-03-06] MEDS: NS IV SCH ×3 (05:54→21:52)
[2019-03-06] MEDS: ACYCLOVIR IV SCH ×3 (05:54→21:52)
[2019-03-06] MEDS: Piperacillin/Tazobactam 3.375 GM in NS 110 ML IVPB SCH ×3 (05:54→21:53)
[2019-03-06 06:12] LABS: ALANINE AMINOTRANSFERASE 24 U/L (12-78); ALBUMIN 2.7 G/DL (3.4-5.0); ALBUMIN/GLOBULIN RATIO 0.6 (1.0-2.7); ALKALINE PHOSPHATASE 46 U/L (46-116); ANION GAP 6 mmol/L (5-15); ASPARTATE AMINO TRANSFERASE 14 U/L (15-37); BILIRUBIN,TOTAL 0.7 MG/DL (0.2-1.0); BLOOD UREA NITROGEN 8 mg/dL (7-18); CARBON DIOXIDE 29 MMOL/L (21-32); CHLORIDE 104 MMOL/L (98-107); CREATININE 0.7 MG/DL (0.55-1.30); POTASSIUM 3.9 MMOL/L (3.5-5.1); SODIUM 139 MMOL/L (136-145)
--- NOTE | 2019-03-06 07:33 | NUR ---
HAND-OFF: Report given to BARBARA GODINEZ.
[2019-03-06 08:00] VITALS: BP 141/83
--- NOTE | 2019-03-06 08:00 | NUR ---
NURSE NOTES: Received report from Piyush Ruggiero RN. Patient awake in bed, oriented x 3, able to make needs known and follow commands. Receiving O2 via nasal cannula @ 3L/min, saturating at 98%. Left NGT in place, placement confirmed by auscultation, awaiting KUB. Female external catheter in place and draining well. Right upper arm PICC infusing NS @ 100 cc/hr, asymptomatic. Bilateral wrist restraints in place. Patient requested to remove restraints. Education provided on removal criteria and patient verbalized understanding. Restraints removed as patient meets removal criteria at this time. All needs attended to. Call light within reach. Will continue to monitor.
--- NOTE | 2019-03-06 09:26 | Diagnostic Imaging Report ---
EXAM: XR Chest, 1 View CLINICAL HISTORY: NGT TECHNIQUE: Frontal view of the chest. COMPARISON: No relevant prior studies available. FINDINGS: Lungs: Mild improved aeration in the right lung base. Persistent elevation of the right hemidiaphragm. No new consolidation or effusion. Pleural space: Unremarkable. The costophrenic angles are sharp. No visible pneumothorax. Heart: Unremarkable. No cardiomegaly. Mediastinum: Unremarkable. Bones joints: Unremarkable. Tubes, lines and devices: NG tube tip in the left upper abdominal quadrant, in the expected region of the stomach. The distal portion of the right-sided PICC is no longer seen in the SVC, and instead extends upward in the right neck soft tissues, possibly in the jugular, and its tip is not visualized. Upper abdomen: Persistent elevation of the right hemidiaphragm. IMPRESSION: 1. NG tube tip in the expected region of the stomach. 2. Persistent elevation of the right hemidiaphragm. 3. Mild improved aeration in the right lung base.
--- NOTE | 2019-03-06 09:30 | NUR ---
NURSE NOTES: Left NGT placement confirmed by X-ray. Tube feeding of Osmolite 1.5 started at 20 cc/hr. HoB elevated. Educated patient on purpose of NGT, verbalized understanding. No attempts to pull out NGT at this time. Will continue to monitor.
[2019-03-06] MEDS: Docusate 100mg/10ml Liq NG SCH ×2 (09:37→21:43)
[2019-03-06] MEDS: Doxycycline Monohydrate 100mg ORAL SCH ×2 (09:37→21:43)
[2019-03-06] MEDS: Heparin 5000 units/ml inj SUBQ SCH ×2 (09:39→21:46)
[2019-03-06] MEDS ORDERED: Omnipaue 350mg/ml 100ml vial INJ PRN (09:45)
--- NOTE | 2019-03-06 10:06 | NUR ---
PT Note Patient has been transferred to [facility]. No new order noted to continue physical therapy. Will put patient on hold till new order is received to resume physical therapy.
--- NOTE | 2019-03-06 11:27 | Cardiology Progress Note ---
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) (2) Aspiration pneumonia (3) Acute respiratory failure with hypoxia (4) Meningitis (5) Fever (6) Shortness of breath -Continue acyclovir -Continue tamiflu -Continue zosyn/vancomycin per ID -Echocardiogram with no pathology/EKG normal sinus Will sign off at this juncture Subjective Cardiovascular: Reports: no symptoms Respiratory: Reports: no symptoms Gastrointestinal/Abdominal: Reports: no symptoms Genitourinary: Reports: no symptoms Subjective Coverage for [place] WBC coming down, no chest pain or shortness of breath, NGT in place Echo reviewed: Normal left ventricular chamber size, systolic function and wall motion . Left ventricular ejection fraction estimated to be 55 %. Possible small pleural effusion . All other cardiac chamber sizes are within normal limits. Focal aortic valve sclerosis with adequate cusp excursion. Thickened mitral valve leaflets with normal excursion. Mitral annulus and aortic root calcification. Pulmonic valve not well visualized. Normal tricuspid valve structure. IVC at normal size with physiologic collapse. A color flow and spectral Doppler study was performed and revealed: No aortic regurgitation. Trace mitral regurgitation. Mitral inflow indicates normal left ventricular diastolic function. Trace tricuspid regurgitation. Tricuspid systolic velocities suggests peak right ventricular systolic pressure of 10 mmHg. Objective Last 24 Hour Vital Signs Date Time Temp Pulse Resp B/P (MAP) Pulse Ox O2 Delivery O2 Flow Rate FiO2 03/06/19 08:00 99.4 114 32 141/83 (102) 98 03/06/19 07:31 107 24 100 Nasal Cannula 3.0 32 117 24 96 03/06/19 07:30 98 Nasal Cannula 3.0 32 03/06/19 04:00 98.4 111 30 127/63 (84) 99 03/06/19 03:36 109 03/06/19 01:19 95 18 100 30.0 41 95 18 100 03/06/19 00:00 98.4 104 22 115/69 (84) 100 03/06/19 00:00 Nasal Cannula 4.0 03/05/19 23:39 97 03/05/19 21:00 Nasal Cannula 4.0 03/05/19 20:49 112 18 97 High Flow 40.0 41 03/05/19 20:00 99.7 112 26 137/83 (101) 96 03/05/19 19:57 112 18 100 30.0 41 111 18 98 03/05/19 19:54 119 18 98 High Flow 30.0 41 03/05/19 19:45 98 High Flow 30.0 42 03/05/19 19:36 109 03/05/19 16:00 136 03/05/19 16:00 100.5 137 32 118/68 (85) 97 03/05/19 15:20 98 High Flow 30.0 60 03/05/19 13:01 128 24 98 High Flow 40.0 100 03/05/19 13:00 Room Air 03/05/19 12:00 134 03/05/19 12:00 102.0 133 32 137/90 (106) 98 03/05/19 11:48 134 General Appearance: no apparent distress, alert EENT: PERRL/EOMI, normal ENT inspection, TMs normal, pharynx normal Neck: non-tender, normal alignment, supple, normal inspection, no JVD Rhythm: NSR Cardiovascular: normal peripheral pulses, normal rate, regular rhythm Respiratory/Chest: chest wall non-tender, lungs clear, normal breath sounds Abdomen: normal bowel sounds, non tender, soft, no organomegaly, no mass Extremities: normal range of motion, non-tender, normal inspection, no calf tenderness, no swelling 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, no motor/sensory deficits Intake and Output 03/05/19 03/06/19 19:00 07:00 Intake Total 685.0 ml 2338.5 ml Output Total 500 ml 450 ml Balance 185.0 ml 1888.5 ml Intake Oral 0 ml IV Total 685.0 ml 2338.5 ml Output Urine Total 500 ml 450 ml # Voids 1 2 Laboratory Tests Test 03/05/19 12:30 03/05/19 14:10 03/05/19 16:00 03/05/19 17:05 D-Dimer 0.68 mg/L FEU (0.00-0.49) H Sodium Level 138 MMOL/L (136-145) Potassium Level 3.9 MMOL/L (3.5-5.1) Chloride Level 102 MMOL/L (98-107) Carbon Dioxide Level 28 MMOL/L (21-32) Anion Gap 8 mmol/L (5-15) Blood Urea Nitrogen 5 mg/dL (7-18) L Creatinine 0.6 MG/DL (0.55-1.30) Estimat Glomerular Filtration Rate > 60 mL/min (>60) Glucose Level 108 MG/DL (74-106) H Lactic Acid Level 0.80 mmol/L (0.4-2.0) Calcium Level 9.3 MG/DL (8.5-10.1) # Total Bilirubin 0.4 MG/DL (0.2-1.0) Aspartate Amino Transf (AST/SGOT) 16 U/L (15-37) Alanine Aminotransferase (ALT/SGPT) 22 U/L (12-78) Alkaline Phosphatase 55 U/L (46-116) Total Creatine Kinase 60 U/L (26-308) Creatine Kinase MB < 0.5 NG/ML (0.0-3.6) Creatine Kinase MB Relative Index Troponin I 0.002 ng/mL (0.000-0.056) 0.000 ng/mL (0.000-0.056) Pro-B-Type Natriuretic Peptide 42 pg/mL (0-125) Total Protein 8.0 G/DL (6.4-8.2) Albumin 3.2 G/DL (3.4-5.0) L Globulin 4.8 g/dL Albumin/Globulin Ratio 0.7 (1.0-2.7) L White Blood Count 22.3 K/UL (4.8-10.8) #*H Red Blood Count 5.00 M/UL (4.20-5.40) Hemoglobin 12.4 G/DL (12.0-16.0) # Hematocrit 38.5 % (37.0-47.0) # Mean Corpuscular Volume 77 FL (80-99) L Mean Corpuscular Hemoglobin 24.8 PG (27.0-31.0) L Mean Corpuscular Hemoglobin Concent 32.2 G/DL (32.0-36.0) Red Cell Distribution Width 14.9 % (11.6-14.8) H Platelet Count 537 K/UL (150-450) H Mean Platelet Volume 4.9 FL (6.5-10.1) L Neutrophils (%) (Auto) % (45.0-75.0) Lymphocytes (%) (Auto) % (20.0-45.0) Monocytes (%) (Auto) % (1.0-10.0) Eosinophils (%) (Auto) % (0.0-3.0) Basophils (%) (Auto) % (0.0-2.0) Differential Total Cells Counted 100 Neutrophils % (Manual) 77 % (45-75) H Lymphocytes % (Manual) 10 % (20-45) L Monocytes % (Manual) 13 % (1-10) H Eosinophils % (Manual) 0 % (0-3) Basophils % (Manual) 0 % (0-2) Band Neutrophils 0 % (0-8) Platelet Estimate Increased H Platelet Morphology Normal Phosphorus Level 4.2 MG/DL (2.5-4.9) Magnesium Level 1.8 MG/DL (1.8-2.4) West Nile Virus IgG Antibody Pending West Nile Virus IgM Antibody Pending Urine Color Pale yellow Urine Appearance Slightly cloudy Urine pH 6 (4.5-8.0) Urine Specific [place] 1.005 (1.005-1.035) Urine Protein 1+ (NEGATIVE) H Urine Glucose (UA) Negative (NEGATIVE) Urine Ketones Negative (NEGATIVE) Urine Blood 2+ (NEGATIVE) H Urine Nitrite Negative (NEGATIVE) Urine Bilirubin Negative (NEGATIVE) Urine Urobilinogen Normal MG/DL (0.0-1.0) Urine Leukocyte Esterase 1+ (NEGATIVE) H Urine RBC 10-15 /HPF (0 - 2) H Urine WBC 5-10 /HPF (0 - 2) H Urine Squamous Epithelial Cells Few /LPF (NONE/OCC) Urine Amorphous Sediment Few /LPF (NONE) H Urine Bacteria Few /HPF (NONE) Rapid Plasma Reagin Pending Test 03/06/19 04:05 White Blood Count 16.9 K/UL (4.8-10.8) H Red Blood Count 4.37 M/UL (4.20-5.40) Hemoglobin 10.7 G/DL (12.0-16.0) L Hematocrit 33.8 % (37.0-47.0) L Mean Corpuscular Volume 77 FL (80-99) L Mean Corpuscular Hemoglobin 24.5 PG (27.0-31.0) L Mean Corpuscular Hemoglobin Concent 31.7 G/DL (32.0-36.0) L Red Cell Distribution Width 15.3 % (11.6-14.8) H Platelet Count 482 K/UL (150-450) H Mean Platelet Volume 4.5 FL (6.5-10.1) L Neutrophils (%) (Auto) 74.2 % (45.0-75.0) Lymphocytes (%) (Auto) 13.7 % (20.0-45.0) L Monocytes (%) (Auto) 9.4 % (1.0-10.0) Eosinophils (%) (Auto) 1.8 % (0.0-3.0) Basophils (%) (Auto) 0.9 % (0.0-2.0) Sodium Level 139 MMOL/L (136-145) Potassium Level 3.9 MMOL/L (3.5-5.1) Chloride Level 104 MMOL/L (98-107) Carbon Dioxide Level 29 MMOL/L (21-32) Anion Gap 6 mmol/L (5-15) Blood Urea Nitrogen 8 mg/dL (7-18) Creatinine 0.7 MG/DL (0.55-1.30) Estimat Glomerular Filtration Rate > 60 mL/min (>60) Glucose Level 82 MG/DL (74-106) Calcium Level 9.0 MG/DL (8.5-10.1) Magnesium Level 1.8 MG/DL (1.8-2.4) Total Bilirubin 0.7 MG/DL (0.2-1.0) Aspartate Amino Transf (AST/SGOT) 14 U/L (15-37) L Alanine Aminotransferase (ALT/SGPT) 24 U/L (12-78) Alkaline Phosphatase 46 U/L (46-116) Troponin I 0.000 ng/mL (0.000-0.056) Pro-B-Type Natriuretic Peptide 30 pg/mL (0-125) Total Protein 7.2 G/DL (6.4-8.2) Albumin 2.7 G/DL (3.4-5.0) L Globulin 4.5 g/dL Albumin/Globulin Ratio 0.6 (1.0-2.7) L Microbiology Date/Time Source Procedure Growth Status 03/05/19 16:00 Urine,Clean Catch Urine Culture - Preliminary NO GROWTH Resulted Martín Teran MD Mar 06, 2019 11:27
[2019-03-06 12:00] VITALS: BP 135/88
--- NOTE | 2019-03-06 12:47 | Infectious Diseases Prog Note ---
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 rickettsial infection, ? lyme or syphilis 3) sob, hypoxia - likely aspiration event, sepsis, fevers, leukocytosis, CT chest c/w pna but neg for PE 4) allergies - nkda, sh-negative, fh-nc, mar noted 5) pmh otherwise negative 6) d/w RN P) 1) acyclovir iv - day # 6, doxycycline - day # 6, supportive care 2) f/u on CSF studies and serology 3) vancomycin and zsoyn started for aspiration pna/HCAP 4) d/w Dr. Lester 5) will f/u 6) repeat WNV for confirmation per department of health recommendation Subjective Constitutional: Denies: fever, other Respiratory: Denies: shortness of breath Cardiovascular: Denies: chest pain Gastrointestinal/Abdominal: Denies: nausea, vomiting Neurologic: Reports: other - more alert Allergies: Coded Allergies: No Known Allergies (Unverified , 02/27/19) Objective Vital Signs Last 24 Hour Vital Signs Date Time Temp Pulse Resp B/P (MAP) Pulse Ox O2 Delivery O2 Flow Rate FiO2 03/06/19 08:00 99.4 114 32 141/83 (102) 98 03/06/19 08:00 117 03/06/19 07:31 107 24 100 Nasal Cannula 3.0 32 117 24 96 03/06/19 07:30 98 Nasal Cannula 3.0 32 03/06/19 04:00 98.4 111 30 127/63 (84) 99 03/06/19 03:36 109 03/06/19 01:19 95 18 100 30.0 41 95 18 100 03/06/19 00:00 98.4 104 22 115/69 (84) 100 03/06/19 00:00 Nasal Cannula 4.0 03/05/19 23:39 97 03/05/19 21:00 Nasal Cannula 4.0 03/05/19 20:49 112 18 97 High Flow 40.0 41 03/05/19 20:00 99.7 112 26 137/83 (101) 96 03/05/19 19:57 112 18 100 30.0 41 111 18 98 03/05/19 19:54 119 18 98 High Flow 30.0 41 03/05/19 19:45 98 High Flow 30.0 42 03/05/19 19:36 109 03/05/19 16:00 136 03/05/19 16:00 100.5 137 32 118/68 (85) 97 03/05/19 15:20 98 High Flow 30.0 60 03/05/19 13:01 128 24 98 High Flow 40.0 100 03/05/19 13:00 Room Air Height (Feet): 5 Height (Inches): 7.00 Weight (Pounds): 228 General Appearance: no acute distress HEENT: normocephalic, atraumatic, anicteric, mucous membranes moist Respiratory/Chest: lungs clear, normal breath sounds, no respiratory distress, crackles/rales, rhonchi - bilaterally Cardiovascular: normal rate, regular rhythm Objective CT head - negative, report noted Chest x-ray - negative, report noted CT angio - Chest - Findings: The pulmonary artery is well opacified and shows no filling defects. There is no adenopathy, pleural or pericardial effusions are identified. There is no aortic dissection or aneurysm identified within the chest. There is dense right basilar consolidation. Consider pneumonia. Mild posterior basal atelectasis also demonstrated on the left. There is extensive artifact limiting evaluation. IMPRESSION: No evidence of pulmonary embolus, aortic dissection or aneurysm. Suspected pneumonia at the right lung base. Correlate clinically. Limited evaluation due to artifact Microbiology Date/Time Source Procedure Growth Status 03/05/19 16:00 Urine,Clean Catch Urine Culture - Preliminary NO GROWTH Resulted Laboratory Tests Test 03/05/19 14:10 03/05/19 16:00 03/05/19 17:05 03/06/19 04:05 White Blood Count 22.3 K/UL (4.8-10.8) #*H 16.9 K/UL (4.8-10.8) H Red Blood Count 5.00 M/UL (4.20-5.40) 4.37 M/UL (4.20-5.40) Hemoglobin 12.4 G/DL (12.0-16.0) # 10.7 G/DL (12.0-16.0) L Hematocrit 38.5 % (37.0-47.0) # 33.8 % (37.0-47.0) L Mean Corpuscular Volume 77 FL (80-99) L 77 FL (80-99) L Mean Corpuscular Hemoglobin 24.8 PG (27.0-31.0) L 24.5 PG (27.0-31.0) L Mean Corpuscular Hemoglobin Concent 32.2 G/DL (32.0-36.0) 31.7 G/DL (32.0-36.0) L Red Cell Distribution Width 14.9 % (11.6-14.8) H 15.3 % (11.6-14.8) H Platelet Count 537 K/UL (150-450) H 482 K/UL (150-450) H Mean Platelet Volume 4.9 FL (6.5-10.1) L 4.5 FL (6.5-10.1) L Neutrophils (%) (Auto) % (45.0-75.0) 74.2 % (45.0-75.0) Lymphocytes (%) (Auto) % (20.0-45.0) 13.7 % (20.0-45.0) L Monocytes (%) (Auto) % (1.0-10.0) 9.4 % (1.0-10.0) Eosinophils (%) (Auto) % (0.0-3.0) 1.8 % (0.0-3.0) Basophils (%) (Auto) % (0.0-2.0) 0.9 % (0.0-2.0) Differential Total Cells Counted 100 Neutrophils % (Manual) 77 % (45-75) H Lymphocytes % (Manual) 10 % (20-45) L Monocytes % (Manual) 13 % (1-10) H Eosinophils % (Manual) 0 % (0-3) Basophils % (Manual) 0 % (0-2) Band Neutrophils 0 % (0-8) Platelet Estimate Increased H Platelet Morphology Normal Phosphorus Level 4.2 MG/DL (2.5-4.9) Magnesium Level 1.8 MG/DL (1.8-2.4) 1.8 MG/DL (1.8-2.4) West Nile Virus IgG Antibody Pending West Nile Virus IgM Antibody Pending Urine Color Pale yellow Urine Appearance Slightly cloudy Urine pH 6 (4.5-8.0) Urine Specific [place] 1.005 (1.005-1.035) Urine Protein 1+ (NEGATIVE) H Urine Glucose (UA) Negative (NEGATIVE) Urine Ketones Negative (NEGATIVE) Urine Blood 2+ (NEGATIVE) H Urine Nitrite Negative (NEGATIVE) Urine Bilirubin Negative (NEGATIVE) Urine Urobilinogen Normal MG/DL (0.0-1.0) Urine Leukocyte Esterase 1+ (NEGATIVE) H Urine RBC 10-15 /HPF (0 - 2) H Urine WBC 5-10 /HPF (0 - 2) H Urine Squamous Epithelial Cells Few /LPF (NONE/OCC) Urine Amorphous Sediment Few /LPF (NONE) H Urine Bacteria Few /HPF (NONE) Troponin I 0.000 ng/mL (0.000-0.056) 0.000 ng/mL (0.000-0.056) Rapid Plasma Reagin Pending Sodium Level 139 MMOL/L (136-145) Potassium Level 3.9 MMOL/L (3.5-5.1) Chloride Level 104 MMOL/L (98-107) Carbon Dioxide Level 29 MMOL/L (21-32) Anion Gap 6 mmol/L (5-15) Blood Urea Nitrogen 8 mg/dL (7-18) Creatinine 0.7 MG/DL (0.55-1.30) Estimat Glomerular Filtration Rate > 60 mL/min (>60) Glucose Level 82 MG/DL (74-106) Calcium Level 9.0 MG/DL (8.5-10.1) Total Bilirubin 0.7 MG/DL (0.2-1.0) Aspartate Amino Transf (AST/SGOT) 14 U/L (15-37) L Alanine Aminotransferase (ALT/SGPT) 24 U/L (12-78) Alkaline Phosphatase 46 U/L (46-116) Pro-B-Type Natriuretic Peptide 30 pg/mL (0-125) Total Protein 7.2 G/DL (6.4-8.2) Albumin 2.7 G/DL (3.4-5.0) L Globulin 4.5 g/dL Albumin/Globulin Ratio 0.6 (1.0-2.7) L Current Medications Medications (Trade) Dose Ordered Sig/Kandi Route PRN Reason Start Time Stop Time Status Last Admin Dose Admin Acetaminophen (Tylenol) 650 mg Q6H PRN ORAL Mild Pain/Temp > 100.5 10/4/19 11:55 03/30/19 11:54 Acyclovir 750 mg/ Sodium Chloride 275 ml @ 275 mls/hr Q8H IV 03/05/19 14:00 04/04/19 13:59 03/06/19 05:54 Albuterol/ Ipratropium (Albuterol/ Ipratropium) 3 ml Q4H PRN HHN Shortness of Breath 03/05/19 16:45 03/10/19 16:44 Albuterol/ Ipratropium (Albuterol/ Ipratropium) 3 ml Q6HRT HHN 03/05/19 19:00 03/10/19 18:59 03/06/19 07:36 Chlorhexidine Gluconate (Mickie-Hex 2%) 1 applic DAILY@2000 TOPIC 03/05/19 20:00 03/31/19 19:59 03/05/19 20:00 Dextrose (Dextrose 50%) 25 ml Q30M PRN IV Hypoglycemia 03/05/19 12:00 03/29/19 18:29 Dextrose (Dextrose 50%) 50 ml Q30M PRN IV Hypoglycemia 03/05/19 12:00 03/29/19 18:29 Docusate Sodium (Colace) 100 mg EVERY 12 HOURS NG 03/06/19 09:30 04/05/19 09:29 03/06/19 09:37 Doxycycline Monohydrate (Doxycycline Monohydrate) 100 mg EVERY 12 HOURS ORAL 03/05/19 21:00 03/12/19 20:59 03/06/19 09:37 Heparin Sodium (Porcine) (Heparin 5000 units/ml) 5,000 units EVERY 12 HOURS SUBQ 03/05/19 21:00 03/29/19 20:59 03/06/19 09:39 Iohexol (Omnipaque) 100 mg NOW PRN INJ Radiology Procedure 03/06/19 09:45 03/07/19 09:35 Ondansetron HCl (Zofran) 4 mg Q6H PRN IVP Nausea & Vomiting 03/05/19 11:57 03/29/19 11:56 Piperacillin Sod/ Tazobactam Sod 3.375 gm/Sodium Chloride 110 ml @ 27.5 mls/hr EVERY 8 HOURS IVPB 03/05/19 14:00 03/10/19 13:59 03/06/19 05:54 Sodium Chloride 1,000 ml @ 100 mls/hr Q10H IV 03/05/19 15:45 04/04/19 15:44 03/06/19 11:42 Vancomycin HCl (Vanco rx to dose) 1 ea DAILY PRN MISC Per rx protocol 03/05/19 12:15 04/04/19 12:14 Vancomycin/Sodium Chloride 275 ml @ 137.5 mls/ hr Q8H IVPB 03/05/19 19:00 03/10/19 18:59 03/06/19 11:40 Alejandro Arellano MD Mar 06, 2019 12:47
--- NOTE | 2019-03-06 13:28 | General Progress Note ---
Assessment/Plan Problem List: (1) Maculopapular rash, generalized ICD Codes: R21 - Rash and other nonspecific skin eruption SNOMED: 699203987 (2) Meningitis ICD Codes: G03.9 - Meningitis, unspecified SNOMED: 2955213 (3) Acute febrile illness ICD Codes: R50.9 - Fever, unspecified SNOMED: 326148519 (4) Fever ICD Codes: R50.9 - Fever, unspecified SNOMED: 441061329 (5) Acute respiratory failure with hypoxia ICD Codes: J96.01 - Acute respiratory failure with hypoxia SNOMED: 73569139, 242362810 (6) Aspiration pneumonia ICD Codes: J69.0 - Pneumonitis due to inhalation of food and vomit SNOMED: 296686329 Status: stable Assessment/Plan: Trenton Elena is a 23 yo woman with no known PMH who presented with fever and AMS , 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 #Severe sepsis (WBC, heart rate, respiratory rate) 2/2 right lower lobe aspiration pneumonia - IMPROVING #Acute hypoxic respiratory failure 2/2 aspiration pneumonia - IMPROVING #Metabolic encephalopathy 2/2 aspiration pneumonia - IMPROVING > ABG 7.46/35.9/59.7/25.1 on 100% non rebreather > CT pulmonary angiogram negative for pulmonary embolism, shows right lower lobe consolidation. - Telemetry - blood cultures - sputum cultures - Titrate FiO2 to SpO2 > 92% - Continue Vancomycin - Continue Zosyn - Normal saline 100 cc/hr - 1L bolus x 1 - duonebs q6hr PRN - Appreciate ID recommendations: Dr. Sniha - Appreciate Pulmonology recommendations: Dr. Hansen - Appreciate Cardiology recommendations: Dr. Varghese - attempt to get patient OOB today. Nurse will discuss with physical therapy suspect [place] meningitis. Improving. Waiting for confirmation test. > CT head overall unremarkable > Afebrile in past 24 hours > Negative: HIV, hepatitis panel - CSF notable for 45 WBC with 96% lymphocytes, 54 glucose, elevated protein 140. Gram stain negative and bacterial culture negative thus far - ID consult bri Tavarez appreciated -Per ID: Discontinue ceftriaxone and vancomycin (4 days) Continue acyclovir, doxycycline and tamiflu until studies are finalized - F/u on repeat WNV - S/p decadron x 1 in ED. CSF studies not consistent with strep meningitis, hold off on further steroids - F/U further studies pending including WNV, HSV, VZV, TB spot, rickettsial, hepatitis, crypto, coccidio - Tylenol PRN fever - physical therapy for rehab #severe genearlized weakness and dysarthria- IMPROVING. likely sequela from meningitis and pneumonia improving - physical therapy and speech eval - treatment of meningitis as above #dysphagia 2/2 [place] meningitis - NG tube insertion and Tube feeds #microcytic anemia - iron panel and ferritin Hypokalemia - Replace as needed Nausea/vomiting - Zofran PRN FEN diet: IV fluids, insert NG tube and tube feeds Regular diet when awake but otherwise NPO Heparin subq DVT PPX Discussed with RN, Infectious Disease, Cardiology and Pulmonology. I spent 36 minutes on this patient's care, including >50% on counseling and/or coordination of care. Subjective Date patient seen: Mar 06, 2019 Constitutional: Denies: chills, diaphoresis, fever, malaise, weakness, other HEENT: Denies: eye pain, blurred vision, tearing, double vision, ear pain, ear discharge, nose pain, nose congestion, throat pain, throat swelling, mouth pain , mouth swelling, other Cardiovascular: Denies: chest pain, edema, irregular heart rate, lightheadedness, palpitations, syncope, other Respiratory: Denies: cough, orthopnea, shortness of breath, SOB with excertion , SOB at rest, sputum, stridor, wheezing, other Gastrointestinal/Abdominal: Denies: abdomen distended, abdominal pain, black stools, tarry stools, blood in stool, constipated, diarrhea, difficulty swallowing, nausea, poor appetite, poor fluid intake, rectal bleeding, vomiting , other Genitourinary: Denies: burning, discharge, frequency, flank pain, hematuria, incontinence, pain, urgency, other Neurologic/Psychiatric: Denies: anxiety, depressed, emotional problems, headache, numbness, paresthesia, pre-existing deficit, seizure, tingling, tremors, weakness, other Endocrine: Denies: excessive sweating, flushing, intolerance to cold, intolerance to heat, increased hunger, increased thirst, increased urine, unexplained weight gain, unexplained weight loss, other Hematologic/Lymphatic: Denies: anemia, easy bleeding, easy bruising, other Allergies: Coded Allergies: No Known Allergies (Unverified , 02/27/19) Subjective Overnight the patient improved. Titrated down to 3L nasal cannula. Feels stronger, more alert. Able to speak and move all extremities. Denies chest pain , SOB, fever, chills, neck pain or stiffness Objective Last 24 Hour Vital Signs Date Time Temp Pulse Resp B/P (MAP) Pulse Ox O2 Delivery O2 Flow Rate FiO2 03/06/19 13:08 111 24 100 Nasal Cannula 3.0 32 102 25 98 03/06/19 12:00 Nasal Cannula 3.0 03/06/19 12:00 111 03/06/19 08:00 Nasal Cannula 3.0 03/06/19 08:00 99.4 114 32 141/83 (102) 98 03/06/19 08:00 117 03/06/19 07:31 107 24 100 Nasal Cannula 3.0 32 117 24 96 03/06/19 07:30 98 Nasal Cannula 3.0 32 03/06/19 04:00 98.4 111 30 127/63 (84) 99 03/06/19 03:36 109 03/06/19 01:19 95 18 100 30.0 41 95 18 100 03/06/19 00:00 98.4 104 22 115/69 (84) 100 03/06/19 00:00 Nasal Cannula 4.0 03/05/19 23:39 97 03/05/19 21:00 Nasal Cannula 4.0 03/05/19 20:49 112 18 97 High Flow 40.0 41 03/05/19 20:00 99.7 112 26 137/83 (101) 96 03/05/19 19:57 112 18 100 30.0 41 111 18 98 03/05/19 19:54 119 18 98 High Flow 30.0 41 03/05/19 19:45 98 High Flow 30.0 42 03/05/19 19:36 109 03/05/19 16:00 136 03/05/19 16:00 100.5 137 32 118/68 (85) 97 03/05/19 15:20 98 High Flow 30.0 60 Intake and Output 03/05/19 03/06/19 18:59 06:59 Intake Total 585.0 ml 2135.0 ml Output Total 500 ml 450 ml Balance 85.0 ml 1685.0 ml Intake Oral 0 ml IV Total 585.0 ml 2135.0 ml Output Urine Total 500 ml 450 ml # Voids 1 2 Laboratory Tests 03/05/19 14:10: White Blood Count 22.3#*H, Red Blood Count 5.00, Hemoglobin 12.4#, Hematocrit 38.5#, Mean Corpuscular Volume 77L, Mean Corpuscular Hemoglobin 24.8L, Mean Corpuscular Hemoglobin Concent 32.2, Red Cell Distribution Width 14.9H, Platelet Count 537H, Mean Platelet Volume 4.9L, Neutrophils (%) (Auto) , Lymphocytes (%) (Auto) , Monocytes (%) (Auto) , Eosinophils (%) (Auto) , Basophils (%) (Auto) , Differential Total Cells Counted 100, Neutrophils % ( Manual) 77H, Lymphocytes % (Manual) 10L, Monocytes % (Manual) 13H, Eosinophils % (Manual) 0, Basophils % (Manual) 0, Band Neutrophils 0, Platelet Estimate IncreasedH, Platelet Morphology Normal, Phosphorus Level 4.2, Magnesium Level 1.8, West Nile Virus IgG Antibody [Pending], West Nile Virus IgM Antibody [ Pending] 03/05/19 16:00: Urine Color Pale yellow, Urine Appearance Slightly cloudy, Urine pH 6, Urine Specific [place] 1.005, Urine Protein 1+H, Urine Glucose (UA) Negative, Urine Ketones Negative, Urine Blood 2+H, Urine Nitrite Negative, Urine Bilirubin Negative, Urine Urobilinogen Normal, Urine Leukocyte Esterase 1+H, Urine RBC 10- 15H, Urine WBC 5-10H, Urine Squamous Epithelial Cells Few, Urine Amorphous Sediment FewH, Urine Bacteria Few 03/05/19 17:05: Troponin I 0.000, Rapid Plasma Reagin [Pending] 03/06/19 04:05: White Blood Count 16.9H, Red Blood Count 4.37, Hemoglobin 10.7L, Hematocrit 33.8L, Mean Corpuscular Volume 77L, Mean Corpuscular Hemoglobin 24.5L, Mean Corpuscular Hemoglobin Concent 31.7L, Red Cell Distribution Width 15.3H, Platelet Count 482H, Mean Platelet Volume 4.5L, Neutrophils (%) (Auto) 74.2, Lymphocytes (%) (Auto) 13.7L, Monocytes (%) (Auto) 9.4, Eosinophils (%) (Auto) 1.8, Basophils (%) (Auto) 0.9, Magnesium Level 1.8, Troponin I 0.000, Sodium Level 139, Potassium Level 3.9, Chloride Level 104, Carbon Dioxide Level 29, Anion Gap 6, Blood Urea Nitrogen 8, Creatinine 0.7, Estimat Glomerular Filtration Rate > 60, Glucose Level 82, Calcium Level 9.0, Total Bilirubin 0.7, Aspartate Amino Transf (AST/SGOT) 14L, Alanine Aminotransferase (ALT/SGPT) 24, Alkaline Phosphatase 46, Pro-B-Type Natriuretic Peptide 30, Total Protein 7.2, Albumin 2.7L, Globulin 4.5, Albumin/Globulin Ratio 0.6L Height (Feet): 5 Height (Inches): 7.00 Weight (Pounds): 228 General Appearance: WD/WN, no apparent distress, alert EENT: PERRL/EOMI, normal ENT inspection Neck: non-tender, normal alignment, supple Cardiovascular: normal peripheral pulses, normal rate, regular rhythm Respiratory/Chest: chest wall non-tender, lungs clear, no accessory muscle use Abdomen: normal bowel sounds, non tender, soft Extremities: normal range of motion, non-tender, normal inspection Neurologic: nutrition worker II-XII grossly normal, no motor/sensory deficits, abnormal gait , alert, oriented x 3 Surinder Lester D.O. Mar 06, 2019 13:28
[2019-03-06] MEDS ORDERED: Tubing IV Secondary IV ONE ×2 (13:51→15:19)
[2019-03-06] MEDS ORDERED: NS 275ml ONE ×2 (13:51→15:19)
--- NOTE | 2019-03-06 13:57 | Pulmonology Progress Note ---
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, VSS when able, aspiration precautions DVT Px: Hep SQ Monitor MS FC Subjective Allergies: Coded Allergies: No Known Allergies (Unverified , 02/27/19) Subjective AFVSS now on 3L more alert denies cough Objective Last 24 Hour Vital Signs Date Time Temp Pulse Resp B/P (MAP) Pulse Ox O2 Delivery O2 Flow Rate FiO2 03/06/19 13:08 111 24 100 Nasal Cannula 3.0 32 102 25 98 03/06/19 12:00 Nasal Cannula 3.0 03/06/19 12:00 111 03/06/19 08:00 Nasal Cannula 3.0 03/06/19 08:00 99.4 114 32 141/83 (102) 98 03/06/19 08:00 117 03/06/19 07:31 107 24 100 Nasal Cannula 3.0 32 117 24 96 03/06/19 07:30 98 Nasal Cannula 3.0 32 03/06/19 04:00 98.4 111 30 127/63 (84) 99 03/06/19 03:36 109 03/06/19 01:19 95 18 100 30.0 41 95 18 100 03/06/19 00:00 98.4 104 22 115/69 (84) 100 03/06/19 00:00 Nasal Cannula 4.0 03/05/19 23:39 97 03/05/19 21:00 Nasal Cannula 4.0 03/05/19 20:49 112 18 97 High Flow 40.0 41 03/05/19 20:00 99.7 112 26 137/83 (101) 96 03/05/19 19:57 112 18 100 30.0 41 111 18 98 03/05/19 19:54 119 18 98 High Flow 30.0 41 03/05/19 19:45 98 High Flow 30.0 42 03/05/19 19:36 109 03/05/19 16:00 136 03/05/19 16:00 100.5 137 32 118/68 (85) 97 03/05/19 15:20 98 High Flow 30.0 60 Intake and Output 03/05/19 03/06/19 18:59 06:59 Intake Total 585.0 ml 2135.0 ml Output Total 500 ml 450 ml Balance 85.0 ml 1685.0 ml Intake Oral 0 ml IV Total 585.0 ml 2135.0 ml Output Urine Total 500 ml 450 ml # Voids 1 2 General Appearance: no acute distress, cachetic HEENT: normocephalic, atraumatic, anicteric, mucous membranes moist Respiratory/Chest: lungs clear Cardiovascular: normal peripheral pulses, normal rate, regular rhythm Abdomen: normal bowel sounds, soft, non tender, no organomegaly, non distended , no mass Extremities: no cyanosis, no clubbing, no edema Microbiology Date/Time Source Procedure Growth Status 03/05/19 16:00 Urine,Clean Catch Urine Culture - Preliminary NO GROWTH Resulted Laboratory Tests 03/05/19 14:10: White Blood Count 22.3#*H, Red Blood Count 5.00, Hemoglobin 12.4#, Hematocrit 38.5#, Mean Corpuscular Volume 77L, Mean Corpuscular Hemoglobin 24.8L, Mean Corpuscular Hemoglobin Concent 32.2, Red Cell Distribution Width 14.9H, Platelet Count 537H, Mean Platelet Volume 4.9L, Neutrophils (%) (Auto) , Lymphocytes (%) (Auto) , Monocytes (%) (Auto) , Eosinophils (%) (Auto) , Basophils (%) (Auto) , Differential Total Cells Counted 100, Neutrophils % ( Manual) 77H, Lymphocytes % (Manual) 10L, Monocytes % (Manual) 13H, Eosinophils % (Manual) 0, Basophils % (Manual) 0, Band Neutrophils 0, Platelet Estimate IncreasedH, Platelet Morphology Normal, Phosphorus Level 4.2, Magnesium Level 1.8, West Nile Virus IgG Antibody [Pending], West Nile Virus IgM Antibody [ Pending] 03/05/19 16:00: Urine Color Pale yellow, Urine Appearance Slightly cloudy, Urine pH 6, Urine Specific [place] 1.005, Urine Protein 1+H, Urine Glucose (UA) Negative, Urine Ketones Negative, Urine Blood 2+H, Urine Nitrite Negative, Urine Bilirubin Negative, Urine Urobilinogen Normal, Urine Leukocyte Esterase 1+H, Urine RBC 10- 15H, Urine WBC 5-10H, Urine Squamous Epithelial Cells Few, Urine Amorphous Sediment FewH, Urine Bacteria Few 03/05/19 17:05: Troponin I 0.000, Rapid Plasma Reagin [Pending] 03/06/19 04:05: White Blood Count 16.9H, Red Blood Count 4.37, Hemoglobin 10.7L, Hematocrit 33.8L, Mean Corpuscular Volume 77L, Mean Corpuscular Hemoglobin 24.5L, Mean Corpuscular Hemoglobin Concent 31.7L, Red Cell Distribution Width 15.3H, Platelet Count 482H, Mean Platelet Volume 4.5L, Neutrophils (%) (Auto) 74.2, Lymphocytes (%) (Auto) 13.7L, Monocytes (%) (Auto) 9.4, Eosinophils (%) (Auto) 1.8, Basophils (%) (Auto) 0.9, Magnesium Level 1.8, Troponin I 0.000, Sodium Level 139, Potassium Level 3.9, Chloride Level 104, Carbon Dioxide Level 29, Anion Gap 6, Blood Urea Nitrogen 8, Creatinine 0.7, Estimat Glomerular Filtration Rate > 60, Glucose Level 82, Calcium Level 9.0, Total Bilirubin 0.7, Aspartate Amino Transf (AST/SGOT) 14L, Alanine Aminotransferase (ALT/SGPT) 24, Alkaline Phosphatase 46, Pro-B-Type Natriuretic Peptide 30, Total Protein 7.2, Albumin 2.7L, Globulin 4.5, Albumin/Globulin Ratio 0.6L Current Medications Medications (Trade) Dose Ordered Sig/Kandi Route PRN Reason Start Time Stop Time Status Last Admin Dose Admin Acetaminophen (Tylenol) 650 mg Q6H PRN ORAL Mild Pain/Temp > 100.5 03/05/19 11:55 03/30/19 11:54 Acyclovir 750 mg/ Sodium Chloride 275 ml @ 275 mls/hr Q8H IV 03/05/19 14:00 04/04/19 13:59 03/06/19 05:54 Albuterol/ Ipratropium (Albuterol/ Ipratropium) 3 ml Q4H PRN HHN Shortness of Breath 03/05/19 16:45 03/10/19 16:44 Albuterol/ Ipratropium (Albuterol/ Ipratropium) 3 ml Q6HRT HHN 03/05/19 19:00 03/10/19 18:59 03/06/19 13:08 Chlorhexidine Gluconate (Mickie-Hex 2%) 1 applic DAILY@2000 TOPIC 03/05/19 20:00 03/31/19 19:59 03/05/19 20:00 Dextrose (Dextrose 50%) 25 ml Q30M PRN IV Hypoglycemia 03/05/19 12:00 03/29/19 18:29 Dextrose (Dextrose 50%) 50 ml Q30M PRN IV Hypoglycemia 03/05/19 12:00 03/29/19 18:29 Docusate Sodium (Colace) 100 mg EVERY 12 HOURS NG 03/06/19 09:30 04/05/19 09:29 03/06/19 09:37 Doxycycline Monohydrate (Doxycycline Monohydrate) 100 mg EVERY 12 HOURS ORAL 03/05/19 21:00 03/12/19 20:59 03/06/19 09:37 Heparin Sodium (Porcine) (Heparin 5000 units/ml) 5,000 units EVERY 12 HOURS SUBQ 03/05/19 21:00 03/29/19 20:59 03/06/19 09:39 Iohexol (Omnipaque) 100 mg NOW PRN INJ Radiology Procedure 03/06/19 09:45 03/07/19 09:35 Ondansetron HCl (Zofran) 4 mg Q6H PRN IVP Nausea & Vomiting 03/05/19 11:57 03/29/19 11:56 Piperacillin Sod/ Tazobactam Sod 3.375 gm/Sodium Chloride 110 ml @ 27.5 mls/hr EVERY 8 HOURS IVPB 03/05/19 14:00 03/10/19 13:59 03/06/19 05:54 Sodium Chloride 1,000 ml @ 100 mls/hr Q10H IV 03/05/19 15:45 04/04/19 15:44 03/06/19 11:42 Vancomycin HCl (Vanco rx to dose) 1 ea DAILY PRN MISC Per rx protocol 03/05/19 12:15 04/04/19 12:14 Vancomycin/Sodium Chloride 275 ml @ 137.5 mls/ hr Q8H IVPB 03/05/19:00 03/10/19 18:59 03/06/19 11:40 Moises Hansen MD Mar 06, 2019 13:56
[2019-03-06] MEDS ORDERED: D5W 275ml ONE (15:19)
--- NOTE | 2019-03-06 15:29 | NUR ---
CASE MANAGEMENT:REVIEW 03/06/19 SI: VIRAL MENINGITIS RAPID RESPONSE CALLED T 99.2 HR 114 RR 28 B/P 135/88 SATS 98% ON 3L/NC LABS: WBC 16.9 PLT 482 AST 14 IS:IV DOXYCYCLINE Q12H IV ACYCLOVIR Q8HRS IV CA GLUCONATE X1 IVF@125 mL/HR TAMIFLU PO BID HEPARIN SUBQ Q12H : TELEMETRY UNIT
[2019-03-06 16:00] VITALS: BP 133/86
--- NOTE | 2019-03-06 19:30 | NUR ---
HAND-OFF: Report given to BARBARA Correa. Vancomycin given per pharmacy post trough result
--- NOTE | 2019-03-06 19:30 | NUR ---
NURSE NOTES: Received report from Diane Hernandez RN. Patient sleeping. Easily awakened. Alert/OX3. Able to make needs known and follow commands. On O2 @ 3L/min per N/C at 100% saturation. Lt nares NGT in place. Pure[place] in place and draining well. Right upper arm PICC infusing NS @ 100cc/hr. Bilat. wrist restraints in place. Sinus tachycardia on playground monitor. In no apparent distress. Slightly febrile at 99.8 otherwise VSS. Call light w/in reach. Will continue to POC.
[2019-03-06 20:00] VITALS: BP 127/77
[2019-03-06] MEDS: Dyna-Hex 2% Top Sol 2oz TOPIC SCH (21:43)
[2019-03-07] VITALS (7 sets, daily range): BP systolic 125–147; BP diastolic 78–97
[2019-03-07] MEDS ORDERED: NS IV SCH ×2
[2019-03-07] MEDS ORDERED: ACYCLOVIR IV SCH ×2
--- NOTE | 2019-03-07 | NUR ---
NURSE NOTES: Sleeping off and on. A/OX3 when awake. Resp even and unlabored. IV's infusing well. 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 VSS, Remain slightly febrile at 99.6 Denies pain. Condition unchanged. No distress noted. Will continue to monitor.
[2019-03-07] MEDS: Albuterol/Ipratropium 3ml neb HHN SCH ×4 (00:56→20:07)
[2019-03-07] MEDS: Vancomycin 1.25gm/NS Premix IVPB SCH ×3 (02:47→14:03)
--- NOTE | 2019-03-07 05:00 | NUR ---
NURSE NOTES: Sleeping off and on. Easily awakened to verbal stimuli. Resp even and unlabored. IV's infusing well. SR on classroom monitor. VSS, afebrile. Denies pain. No distress noted. Will continue to monitor.
[2019-03-07] MEDS: NS IV SCH ×3 (05:43→23:48)
[2019-03-07] MEDS: Piperacillin/Tazobactam 3.375 GM in NS 110 ML IVPB SCH ×3 (05:43→22:00)
[2019-03-07] MEDS: ACYCLOVIR IV SCH ×3 (05:43→23:48)
[2019-03-07 06:25] LABS: BASOPHILS % (AUTO) 0.9 % (0.0-2.0); EOSINOPHILS % (AUTO) 3.6 % (0.0-3.0); HEMATOCRIT 34.6 % (37.0-47.0); HEMOGLOBIN 10.6 G/DL (12.0-16.0); LYMPHOCYTES % (AUTO) 13.9 % (20.0-45.0); MEAN CORPUSCULAR VOLUME 77 FL (80-99); MONOCYTES % (AUTO) 11.3 % (1.0-10.0); NEUTROPHILS % (AUTO) 70.3 % (45.0-75.0); PLATELET COUNT 523 K/UL (150-450); RED BLOOD COUNT 4.48 M/UL (4.20-5.40); RED CELL DISTRIBUTION WIDTH 15.6 % (11.6-14.8); WHITE BLOOD COUNT 11.6 K/UL (4.8-10.8)
[2019-03-07 06:37] LABS: ANION GAP 3 mmol/L (5-15); BLOOD UREA NITROGEN 7 mg/dL (7-18); CALCIUM 8.9 MG/DL (8.5-10.1); CARBON DIOXIDE 33 MMOL/L (21-32); CHLORIDE 106 MMOL/L (98-107); CREATININE 0.6 MG/DL (0.55-1.30); POTASSIUM 3.9 MMOL/L (3.5-5.1); SODIUM 141 MMOL/L (136-145)
--- NOTE | 2019-03-07 07:15 | NUR ---
HAND-OFF: Report given to Diane Hernandez RN.
--- NOTE | 2019-03-07 07:30 | NUR ---
NURSE NOTES: Received report from Paulino Gary RN. Patient awake in bed, oriented x 3, able to make needs known and follow commands. Receiving O2 via nasal cannula @ 3L/min, saturating at 100%. Left NGT in place and running feeding of Osmolite 1.5 @ 20 cc/hr, no residuals noted, HoB elevated. Female external catheter in place and attached to low, continuous suction. Right upper arm PICC infusing NS @ 100 cc/hr and Zosyn @ 27.5 cc/hr, asymptomatic. All needs attended to. Call light within reach. Will continue to monitor.
--- NOTE | 2019-03-07 07:47 | NUR ---
CASE MANAGEMENT:REVIEW 03/07/19 SI: VIRAL MENINGITIS T 98.1 HR 97 RR 20 B/P 134/90 SATS 98% ON 3L/NC WBC 11.6 CO2 33 GLU 119 IS:IV DOXYCYCLINE Q12H IV ACYCLOVIR Q8HRS IV CA GLUCONATE X1 IVF@125 mL/HR TAMIFLU PO BID HEPARIN SUBQ Q12H : SDU PLAN OF CARE: CXR
[2019-03-07] MEDS: Docusate 100mg/10ml Liq NG SCH ×2 (09:12→20:13)
[2019-03-07] MEDS: Doxycycline Monohydrate 100mg ORAL SCH ×2 (09:13→20:13)
[2019-03-07] MEDS: Heparin 5000 units/ml inj SUBQ SCH ×2 (09:14→20:16)
--- NOTE | 2019-03-07 09:32 | Diagnostic Imaging Report ---
EXAM: XR Chest, 1 View CLINICAL HISTORY: INFECT TECHNIQUE: Frontal view of the chest. COMPARISON: Chest x-ray dated [address] chest dated 03 05 19 FINDINGS: Lungs: Diffuse consolidation throughout the right middle and lower lobes, simulating the appearance of an elevated right hemidiaphragm. Pleural space: Unremarkable. The costophrenic angles are sharp. No visible pneumothorax. Heart: Unremarkable. No cardiomegaly. Mediastinum: Unremarkable. Bones joints: Unremarkable. Tubes, lines and devices: Telemetry leads overlie the thorax. IMPRESSION: Diffuse consolidation throughout the right middle and lower lobes, simulating the appearance of an elevated right hemidiaphragm.
--- NOTE | 2019-03-07 09:46 | Pulmonology Progress Note ---
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, VSS when able, aspiration precautions DVT Px: Hep SQ Monitor MS FC Subjective Allergies: Coded Allergies: No Known Allergies (Unverified , 02/27/19) Subjective Tm 102 VSS O2 needs stable CXR unchanged more alert denies cough Objective Last 24 Hour Vital Signs Date Time Temp Pulse Resp B/P (MAP) Pulse Ox O2 Delivery O2 Flow Rate FiO2 03/07/19 08:00 99.8 105 21 133/94 (107) 100 03/07/19 07:21 97 Nasal Cannula 3.0 32 03/07/19 07:20 106 20 100 Nasal Cannula 3.0 32 100 18 100 03/07/19 04:00 97 03/07/19 04:00 98.1 97 20 134/90 (105) 98 03/07/19 01:06 100 20 100 Nasal Cannula 3.0 32 03/07/19 00:56 98 20 99 Nasal Cannula 2.0 28 03/07/19 00:00 99.6 98 20 125/78 (94) 98 03/07/19 00:00 98 03/06/19 22:30 99.6 03/06/19 20:00 101 03/06/19 20:00 99.8 101 20 127/77 (94) 100 03/06/19 19:37 109 22 100 Nasal Cannula 3.0 32 03/06/19 19:27 106 22 97 Nasal Cannula 3.0 32 03/06/19 19:27 97 Nasal Cannula 3.0 32 03/06/19 16:00 120 03/06/19 16:00 99.9 107 30 133/86 (102) 99 03/06/19 13:08 111 24 100 Nasal Cannula 3.0 32 102 25 98 03/06/19 12:00 Nasal Cannula 3.0 03/06/19 12:00 99.2 114 28 135/88 (104) 98 03/06/19 12:00 111 Intake and Output 03/06/19 03/07/19 19:00 07:00 Intake Total 3096.500 ml 1760.000 ml Output Total 800 ml Balance 2296.500 ml 1760.000 ml Free Water 100 ml IV Total 2836.500 ml 1460.000 ml Tube Feeding 210 ml 200 ml Other 50 ml Output Urine Total 800 ml # Voids 3 General Appearance: WD/WN, no acute distress HEENT: normocephalic, atraumatic, anicteric, mucous membranes moist, other - NGT Respiratory/Chest: chest wall non-tender, rhonchi - RLL Cardiovascular: normal peripheral pulses, normal rate, regular rhythm Abdomen: normal bowel sounds, soft, non tender, no organomegaly, non distended , no mass Extremities: no cyanosis, no clubbing, no edema Microbiology Date/Time Source Procedure Growth Status 03/05/19 00:00 Blood Blood Culture - Preliminary NO GROWTH AFTER 24 HOURS Resulted 03/05/19 16:00 Urine,Clean Catch Urine Culture - Preliminary Resulted Laboratory Tests 03/06/19 17:45: Vancomycin Level Trough 10.7 03/07/19 06:00: White Blood Count 11.6H, Red Blood Count 4.48, Hemoglobin 10.6L, Hematocrit 34.6L, Mean Corpuscular Volume 77L, Mean Corpuscular Hemoglobin 23.7L, Mean Corpuscular Hemoglobin Concent 30.7L, Red Cell Distribution Width 15.6H, Platelet Count 523H, Mean Platelet Volume 4.7L, Neutrophils (%) (Auto) 70.3, Lymphocytes (%) (Auto) 13.9L, Monocytes (%) (Auto) 11.3H, Eosinophils (%) (Auto ) 3.6H, Basophils (%) (Auto) 0.9, Sodium Level 141, Potassium Level 3.9, Chloride Level 106, Carbon Dioxide Level 33H, Anion Gap 3L, Blood Urea Nitrogen 7, Creatinine 0.6, Estimat Glomerular Filtration Rate > 60, Glucose Level 119H, Calcium Level 8.9, Phosphorus Level 4.0, Magnesium Level 2.1 Current Medications Medications (Trade) Dose Ordered Sig/Kandi Route PRN Reason Start Time Stop Time Status Last Admin Dose Admin Acetaminophen (Tylenol) 650 mg Q6H PRN ORAL Mild Pain/Temp > 100.5 10/4/19 11:55 03/30/19 11:54 03/06/19 21:45 Acyclovir 750 mg/ Sodium Chloride 275 ml @ 275 mls/hr Q8H IV 03/05/19 14:00 04/04/19 13:59 03/07/19 05:43 Albuterol/ Ipratropium (Albuterol/ Ipratropium) 3 ml Q4H PRN HHN Shortness of Breath 03/05/19 16:45 03/10/19 16:44 Albuterol/ Ipratropium (Albuterol/ Ipratropium) 3 ml Q6HRT HHN 03/05/19 19:00 03/10/19 18:59 03/07/19 07:19 Chlorhexidine Gluconate (Mickie-Hex 2%) 1 applic DAILY@2000 TOPIC 03/05/19 20:00 03/31/19 19:59 03/06/19 21:43 Dextrose (Dextrose 50%) 25 ml Q30M PRN IV Hypoglycemia 03/05/19 12:00 03/29/19 18:29 Dextrose (Dextrose 50%) 50 ml Q30M PRN IV Hypoglycemia 03/05/19 12:00 03/29/19 18:29 Docusate Sodium (Colace) 100 mg EVERY 12 HOURS NG 03/06/19 09:30 04/05/19 09:29 03/07/19 09:12 Doxycycline Monohydrate (Doxycycline Monohydrate) 100 mg EVERY 12 HOURS ORAL 03/05/19 21:00 03/12/19 20:59 03/07/19 09:13 Heparin Sodium (Porcine) (Heparin 5000 units/ml) 5,000 units EVERY 12 HOURS SUBQ 03/05/19 21:00 03/29/19 20:59 03/07/19 09:14 Ondansetron HCl (Zofran) 4 mg Q6H PRN IVP Nausea & Vomiting 03/05/19 11:57 03/29/19 11:56 Piperacillin Sod/ Tazobactam Sod 3.375 gm/Sodium Chloride 110 ml @ 27.5 mls/hr EVERY 8 HOURS IVPB 03/05/19 14:00 03/10/19 13:59 03/07/19 05:43 Sodium Chloride 1,000 ml @ 100 mls/hr Q10H IV 03/05/19 15:45 04/04/19 15:44 03/07/19 07:57 Vancomycin HCl (Vanco rx to dose) 1 ea DAILY PRN MISC Per rx protocol 03/05/19 12:15 04/04/19 12:14 Vancomycin/Sodium Chloride 275 ml @ 183.333 mls/hr Q6H IVPB 03/07/19 02:00 03/12/19 01:59 03/07/19 07:57 Moises Hansen MD Mar 07, 2019 09:46
--- NOTE | 2019-03-07 11:51 | General Progress Note ---
Assessment/Plan Problem List: (1) Maculopapular rash, generalized ICD Codes: R21 - Rash and other nonspecific skin eruption SNOMED: 604233069 (2) Meningitis ICD Codes: G03.9 - Meningitis, unspecified SNOMED: 0718614 (3) Acute febrile illness ICD Codes: R50.9 - Fever, unspecified SNOMED: 464580066 (4) Fever ICD Codes: R50.9 - Fever, unspecified SNOMED: 202228424 (5) Acute respiratory failure with hypoxia ICD Codes: J96.01 - Acute respiratory failure with hypoxia SNOMED: 63414380, 196767427 (6) Aspiration pneumonia ICD Codes: J69.0 - Pneumonitis due to inhalation of food and vomit SNOMED: 230056530 Status: stable Assessment/Plan: Trenton Elena is a 23 yo woman with no known PMH who presented with fever and AMS , 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 #s/p Severe sepsis (WBC, heart rate, respiratory rate) 2/2 right lower lobe aspiration pneumonia -resolved #Acute hypoxic respiratory failure 2/2 aspiration pneumonia - IMPROVING #Metabolic encephalopathy 2/2 aspiration pneumonia - IMPROVING > ABG 7.46/35.9/59.7/25.1 on 100% non rebreather > CT pulmonary angiogram negative for pulmonary embolism, shows right lower lobe consolidation. - Telemetry - blood cultures - sputum cultures - Titrate FiO2 to SpO2 > 92% - Continue Vancomycin - Continue Zosyn - Normal saline 100 cc/hr - 1L bolus x 1 - duonebs q6hr PRN - Appreciate ID recommendations: Dr. Sinha - Appreciate Pulmonology recommendations: Dr. Hansen - Appreciate Cardiology recommendations: Dr. Varghese - attempt to get patient OOB today. Nurse will discuss with physical therapy suspect [place] meningitis. Improving. Waiting for confirmation test. > CT head overall unremarkable > Afebrile in past 24 hours > Negative: HIV, hepatitis panel - CSF notable for 45 WBC with 96% lymphocytes, 54 glucose, elevated protein 140. Gram stain negative and bacterial culture negative thus far - ID consult Dr. Arellano, recs appreciated -Per ID: Discontinue ceftriaxone and vancomycin (4 days) Continue acyclovir, doxycycline. until studies are finalized. Waiting on HSV PCR and [place] confirmation. S/p tamiflu - F/u on repeat WNV - S/p decadron x 1 in ED. CSF studies not consistent with strep meningitis, hold off on further steroids - F/U further studies pending including WNV, HSV, VZV - Tylenol PRN fever - physical therapy for rehab #severe genearlized weakness and dysarthria- IMPROVING. likely sequela from meningitis and pneumonia improving - physical therapy and speech eval - treatment of meningitis as above #dysphagia 2/2 west [place]ile meningitis - NG tube insertion and Tube feeds - appreciate dietary recommendations - jevity at goal of 60 cc/hr #microcytic anemia - iron panel and ferritin Hypokalemia - Replace as needed Nausea/vomiting - Zofran PRN FEN diet: d/c IV fluids, tube feeds Regular diet when awake but otherwise NPO Heparin subq DVT PPX Discussed with RN, Infectious Disease, Cardiology and Pulmonology. I spent 37 minutes on this patient's care, including >50% on counseling and/or coordination of care. Time of note may not reflect time patient was seen Subjective Date patient seen: Mar 07, 2019 Constitutional: Reports: malaise, weakness; Denies: chills, diaphoresis, fever , other HEENT: Denies: eye pain, blurred vision, tearing, double vision, ear pain, ear discharge, nose pain, nose congestion, throat pain, throat swelling, mouth pain , mouth swelling, other Cardiovascular: Denies: chest pain, edema, irregular heart rate, lightheadedness, palpitations, syncope, other Respiratory: Denies: cough, orthopnea, shortness of breath, SOB with excertion , SOB at rest, sputum, stridor, wheezing, other Gastrointestinal/Abdominal: Denies: abdomen distended, abdominal pain, black stools, tarry stools, blood in stool, constipated, diarrhea, difficulty swallowing, nausea, poor appetite, poor fluid intake, rectal bleeding, vomiting , other Genitourinary: Denies: burning, discharge, frequency, flank pain, hematuria, incontinence, pain, urgency, other Neurologic/Psychiatric: Denies: anxiety, depressed, emotional problems, headache, numbness, paresthesia, pre-existing deficit, seizure, tingling, tremors, weakness, other Endocrine: Denies: excessive sweating, flushing, intolerance to cold, intolerance to heat, increased hunger, increased thirst, increased urine, unexplained weight gain, unexplained weight loss, other Hematologic/Lymphatic: Denies: anemia, easy bleeding, easy bruising, other Allergies: Coded Allergies: No Known Allergies (Unverified , 02/27/19) Subjective Overnight the patient improved. No acute events overnight per nursing. Titrated down to 2L nasal cannula. Feels stronger, more alert. Able to speak and move all extremities. Able to get up and walk with PT today. Tolerating tube feeds. Denies chest pain, fever, chills, neck pain or stiffness Objective Last 24 Hour Vital Signs Date Time Temp Pulse Resp B/P (MAP) Pulse Ox O2 Delivery O2 Flow Rate FiO2 03/07/19 08:00 99.8 105 21 133/94 (107) 100 03/07/19 08:00 112 03/07/19 07:21 97 Nasal Cannula 3.0 32 03/07/19 07:20 106 20 100 Nasal Cannula 3.0 32 100 18 100 03/07/19 04:00 97 03/07/19 04:00 98.1 97 20 134/90 (105) 98 03/07/19 01:06 100 20 100 Nasal Cannula 3.0 32 03/07/19 00:56 98 20 99 Nasal Cannula 2.0 28 03/07/19 00:00 99.6 98 20 125/78 (94) 98 03/07/19 00:00 98 03/06/19 22:30 99.6 03/06/19 20:00 101 03/06/19 20:00 99.8 101 20 127/77 (94) 100 03/06/19 19:37 109 22 100 Nasal Cannula 3.0 32 03/06/19 19:27 106 22 97 Nasal Cannula 3.0 32 03/06/19 19:27 97 Nasal Cannula 3.0 32 03/06/19 16:00 120 03/06/19 16:00 99.9 107 30 133/86 (102) 99 03/06/19 13:08 111 24 100 Nasal Cannula 3.0 32 102 25 98 03/06/19 12:00 Nasal Cannula 3.0 03/06/19 12:00 99.2 114 28 135/88 (104) 98 03/06/19 12:00 111 Intake and Output 03/06/19 03/07/19 19:00 07:00 Intake Total 3096.500 ml 1760.000 ml Output Total 800 ml Balance 2296.500 ml 1760.000 ml Free Water 100 ml IV Total 2836.500 ml 1460.000 ml Tube Feeding 210 ml 200 ml Other 50 ml Output Urine Total 800 ml # Voids 3 Laboratory Tests 03/06/19 17:45: Vancomycin Level Trough 10.7 03/07/19 06:00: White Blood Count 11.6H, Red Blood Count 4.48, Hemoglobin 10.6L, Hematocrit 34.6L, Mean Corpuscular Volume 77L, Mean Corpuscular Hemoglobin 23.7L, Mean Corpuscular Hemoglobin Concent 30.7L, Red Cell Distribution Width 15.6H, Platelet Count 523H, Mean Platelet Volume 4.7L, Neutrophils (%) (Auto) 70.3, Lymphocytes (%) (Auto) 13.9L, Monocytes (%) (Auto) 11.3H, Eosinophils (%) (Auto ) 3.6H, Basophils (%) (Auto) 0.9, Sodium Level 141, Potassium Level 3.9, Chloride Level 106, Carbon Dioxide Level 33H, Anion Gap 3L, Blood Urea Nitrogen 7, Creatinine 0.6, Estimat Glomerular Filtration Rate > 60, Glucose Level 119H, Calcium Level 8.9, Phosphorus Level 4.0, Magnesium Level 2.1 Height (Feet): 5 Height (Inches): 7.00 Weight (Pounds): 228 General Appearance: WD/WN, no apparent distress, alert EENT: PERRL/EOMI, normal ENT inspection Neck: non-tender, normal alignment, supple Cardiovascular: normal peripheral pulses, normal rate, regular rhythm, no JVD Respiratory/Chest: chest wall non-tender, lungs clear, normal breath sounds, no respiratory distress Abdomen: normal bowel sounds, non tender, soft Extremities: normal range of motion, non-tender, normal inspection Neurologic: life advisor II-XII grossly normal, no motor/sensory deficits, alert, oriented x 3, responsive Skin: normal pigmentation, warm/dry Surinder Lester D.O. Mar 07, 2019 11:51
--- NOTE | 2019-03-07 14:05 | NUR ---
NURSE NOTES: Pamella from pharmacy made aware that acyclovir and zosyn are incompatible and patient only has 1 IV access. Requested to retime dosages d/t same schedule q 8 hrs. Per Pamella, she will retime doses. Awaiting pharmacy to send acyclovir at this time before starting zosyn.
--- NOTE | 2019-03-07 14:37 | Infectious Diseases Prog Note ---
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 rickettsial infection, ? lyme or syphilis 3) sob, hypoxia - likely aspiration event, sepsis, fevers, leukocytosis, CT chest c/w pna but neg for PE 4) allergies - nkda, sh-negative, fh-nc, mar noted 5) pmh otherwise negative 6) d/w RN P) 1) acyclovir iv - day # 7, doxycycline - day # 7, supportive care 2) f/u on CSF studies and serology 3) vancomycin and zosyn for aspiration pna/HCAP - day # 3 4) continue treatment per primary and consultants 5) will f/u 6) repeat WNV for confirmation per department of health recommendation Subjective Constitutional: Reports: fatigue, other - more alert, fever curve better ; Denies: fever HEENT: Reports: congestion Respiratory: Reports: shortness of breath - less Cardiovascular: Denies: chest pain Gastrointestinal/Abdominal: Denies: nausea, diarrhea Genitourinary: Reports: other - no espino Neurologic: Denies: headache Psychiatric: Denies: depression Skin: Denies: rash Hematologic: Denies: bleeding Musculoskeletal: Denies: pain Allergies: Coded Allergies: No Known Allergies (Unverified , 02/27/19) Objective Vital Signs Last 24 Hour Vital Signs Date Time Temp Pulse Resp B/P (MAP) Pulse Ox O2 Delivery O2 Flow Rate FiO2 03/07/19 12:59 91 20 100 Nasal Cannula 3.0 32 92 16 100 03/07/19 12:00 98.8 104 20 141/88 (105) 100 03/07/19 08:00 99.8 105 21 133/94 (107) 100 03/07/19 08:00 112 03/07/19 07:21 97 Nasal Cannula 3.0 32 03/07/19 07:20 106 20 100 Nasal Cannula 3.0 32 100 18 100 03/07/19 04:00 97 03/07/19 04:00 98.1 97 20 134/90 (105) 98 03/07/19 01:06 100 20 100 Nasal Cannula 3.0 32 03/07/19 00:56 98 20 99 Nasal Cannula 2.0 28 03/07/19 00:00 99.6 98 20 125/78 (94) 98 03/07/19 00:00 98 03/06/19 22:30 99.6 03/06/19 20:00 101 03/06/19 20:00 99.8 101 20 127/77 (94) 100 03/06/19 19:37 109 22 100 Nasal Cannula 3.0 32 03/06/19 19:27 106 22 97 Nasal Cannula 3.0 32 03/06/19 19:27 97 Nasal Cannula 3.0 32 03/06/19 16:00 120 03/06/19 16:00 99.9 107 30 133/86 (102) 99 Height (Feet): 5 Height (Inches): 7.00 Weight (Pounds): 228 General Appearance: no acute distress HEENT: normocephalic, atraumatic, anicteric, mucous membranes moist, other - + ngt Respiratory/Chest: lungs clear, normal breath sounds, no respiratory distress, no accessory muscle use Cardiovascular: normal rate, regular rhythm, no gallop/murmur, no JVD Abdomen: normal bowel sounds, soft, non tender, no organomegaly, non distended Genitourinary: other - no espino Extremities: no cyanosis Skin: no rash Neurologic/Psychiatric: fly raiser lockstitch II-XII 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 There is no adenopathy, pleural or pericardial effusions are identified. There is no aortic dissection or aneurysm identified within the chest. There is dense right basilar consolidation. Consider pneumonia. Mild posterior basal atelectasis also demonstrated on the left. There is extensive artifact limiting evaluation. IMPRESSION: No evidence of pulmonary embolus, aortic dissection or aneurysm. Suspected pneumonia at the right lung base. Correlate clinically. Limited evaluation due to artifact Chest x-ray -03/07/19 - IMPRESSION: Diffuse consolidation throughout the right middle and lower lobes, simulating the appearance of an elevated right hemidiaphragm. Microbiology Date/Time Source Procedure Growth Status 03/05/19 00:00 Blood Blood Culture - Preliminary NO GROWTH AFTER 24 HOURS Resulted 02/27/19 19:04 Cerebral Spinal Fluid Gram Stain - Final Complete 02/27/19 19:04 Cerebral Spinal Fluid CSF Culture - Final NO GROWTH Complete 02/27/19 14:45 Nasal Nares - Final Complete 02/27/19 14:45 Nasal Nares - Final Complete 03/05/19 16:00 Urine,Clean Catch Urine Culture - Preliminary Resulted Microbiology Date/Time Source Procedure Growth Status 03/05/19 00:00 Blood Blood Culture - Preliminary NO GROWTH AFTER 24 HOURS Resulted 03/05/19 16:00 Urine,Clean Catch Urine Culture - Preliminary Resulted Laboratory Tests Test 03/06/19 17:45 03/07/19 06:00 03/07/19 12:45 Vancomycin Level Trough 10.7 ug/mL (5.0-12.0) 12.1 ug/mL (5.0-12.0) H White Blood Count 11.6 K/UL (4.8-10.8) H Red Blood Count 4.48 M/UL (4.20-5.40) Hemoglobin 10.6 G/DL (12.0-16.0) L Hematocrit 34.6 % (37.0-47.0) L Mean Corpuscular Volume 77 FL (80-99) L Mean Corpuscular Hemoglobin 23.7 PG (27.0-31.0) L Mean Corpuscular Hemoglobin Concent 30.7 G/DL (32.0-36.0) L Red Cell Distribution Width 15.6 % (11.6-14.8) H Platelet Count 523 K/UL (150-450) H Mean Platelet Volume 4.7 FL (6.5-10.1) L Neutrophils (%) (Auto) 70.3 % (45.0-75.0) Lymphocytes (%) (Auto) 13.9 % (20.0-45.0) L Monocytes (%) (Auto) 11.3 % (1.0-10.0) H Eosinophils (%) (Auto) 3.6 % (0.0-3.0) H Basophils (%) (Auto) 0.9 % (0.0-2.0) Sodium Level 141 MMOL/L (136-145) Potassium Level 3.9 MMOL/L (3.5-5.1) Chloride Level 106 MMOL/L (98-107) Carbon Dioxide Level 33 MMOL/L (21-32) H Anion Gap 3 mmol/L (5-15) L Blood Urea Nitrogen 7 mg/dL (7-18) Creatinine 0.6 MG/DL (0.55-1.30) Estimat Glomerular Filtration Rate > 60 mL/min (>60) Glucose Level 119 MG/DL (74-106) H Calcium Level 8.9 MG/DL (8.5-10.1) Phosphorus Level 4.0 MG/DL (2.5-4.9) Magnesium Level 2.1 MG/DL (1.8-2.4) Current Medications Medications (Trade) Dose Ordered Sig/Kandi Route PRN Reason Start Time Stop Time Status Last Admin Dose Admin Acetaminophen (Tylenol) 650 mg Q6H PRN ORAL Mild Pain/Temp > 100.5 03/05/19 11:55 03/30/19 11:54 03/06/19 21:45 Acyclovir 750 mg/ Sodium Chloride 275 ml @ 275 mls/hr Q8H IV 03/05/19 14:00 04/04/19 13:59 03/07/19 05:43 Albuterol/ Ipratropium (Albuterol/ Ipratropium) 3 ml Q4H PRN HHN Shortness of Breath 03/05/19 16:45 03/10/19 16:44 Albuterol/ Ipratropium (Albuterol/ Ipratropium) 3 ml Q6HRT HHN 03/05/19 19:00 03/10/19 18:59 03/07/19 12:59 Chlorhexidine Gluconate (Mickie-Hex 2%) 1 applic DAILY@2000 TOPIC 03/05/19 20:00 03/31/19 19:59 03/06/19 21:43 Dextrose (Dextrose 50%) 25 ml Q30M PRN IV Hypoglycemia 03/05/19 12:00 03/29/19 18:29 Dextrose (Dextrose 50%) 50 ml Q30M PRN IV Hypoglycemia 03/05/19 12:00 03/29/19 18:29 Docusate Sodium (Colace) 100 mg EVERY 12 HOURS NG 03/06/19 09:30 04/05/19 09:29 03/07/19 09:12 Doxycycline Monohydrate (Doxycycline Monohydrate) 100 mg EVERY 12 HOURS ORAL 03/05/19 21:00 03/12/19 20:59 03/07/19 09:13 Heparin Sodium (Porcine) (Heparin 5000 units/ml) 5,000 units EVERY 12 HOURS SUBQ 03/05/19 21:00 03/29/19 20:59 03/07/19 09:14 Ondansetron HCl (Zofran) 4 mg Q6H PRN IVP Nausea & Vomiting 03/05/19 11:57 03/29/19 11:56 Piperacillin Sod/ Tazobactam Sod 3.375 gm/Sodium Chloride 110 ml @ 27.5 mls/hr EVERY 8 HOURS IVPB 03/05/19 14:00 03/10/19 13:59 03/07/19 05:43 Sodium Chloride 1,000 ml @ 100 mls/hr Q10H IV 03/05/19 15:45 04/04/19 15:44 03/07/19 07:57 Vancomycin HCl (Vanco rx to dose) 1 ea DAILY PRN MISC Per rx protocol 03/05/19 12:15 04/04/19 12:14 Vancomycin/Sodium Chloride 275 ml @ 183.333 mls/hr Q6H IVPB 03/07/19 02:00 03/12/19 01:59 03/07/19 14:03 Alejandro Arellano MD Mar 07, 2019 14:37
--- NOTE | 2019-03-07 15:55 | NUR ---
TRANSFER TO FLOOR: Patient transferred to telemetry room 220-2, per Dr. Lester. Report given to BARBARA Reagan. Belongings and medications given to receiving nurse. Sister, Kiera, informed of transfer.
[2019-03-07] MEDS ORDERED: Albuterol/Ipratropium 3ml neb HHN PRN (16:45)
--- NOTE | 2019-03-07 17:00 | NUR ---
NURSE NOTES: Received patient from Noe Strong. Patient transferred to this floor from [facility]. Patient is awake and alert. answering questions appropriately. Left bare NGT clear dry and intact, Tube feeding running with jevity 1.2 @20 ML/HR. will increase as tolerated per order to a goal of 60ML/HR. Left upper arm DL PICC CDI. Patient is oriented to room. safety precautions activated. Bed locked to lowest position. side rails X2 up for safety. bed alarm on. call silva within patients reach. patient on continuos cardiac monitoring. Denies pain or discomfort at this time. will attend to needs and monitor patient.
--- NOTE | 2019-03-07 18:00 | NUR ---
NURSE NOTES: Patient tolerating tube feeding. No residual noted. Increased to 30 ML/HR. will follow.
--- NOTE | 2019-03-07 19:15 | NUR ---
NURSE NOTES: pt report received from Merary JIMENEZ TELE. pt remains stable. pt is alert and oriented times 3 and able to respond to simple commands. pt is on monitoring tech showing NSR, no distress noted. pt is on 2 L NC able to sat at 100%, no resp distress noted. pt bed is low, locked, armed, bed rails up times 3, call light within reach. will follow plan of care.
--- NOTE | 2019-03-07 19:32 | NUR ---
HAND-OFF: Report given to Noe Correa. Plan of care endorsed.
--- NOTE | 2019-03-07 20:06 | NUR ---
NURSE NOTES: Called [facility] Pharmacist, stated to continue same dose Vanco (1.25G). additionally, all vanco IV ref meds transferred from [facility] refrigerator to [facility] refrigerator.
[2019-03-07] MEDS: Vancomycin 1.25gm/NS Premix 275 ML IVPB SCH (20:12)
[2019-03-07] MEDS: Dyna-Hex 2% Top Sol 2oz TOPIC SCH (20:13)
--- NOTE | 2019-03-07 23:15 | NUR ---
NURSE NOTES: called [facility]. Spoke with [place] who will relay Acyclovir in 750 IV over to pharmacist. awaiting labels.
[2019-03-08] VITALS: BP 139/95
[2019-03-08] MEDS ORDERED: ACYCLOVIR IV SCH ×2
[2019-03-08] MEDS ORDERED: NS IV SCH ×2
[2019-03-08] MEDS: Albuterol/Ipratropium 3ml neb HHN SCH ×4 (00:10→21:06)
[2019-03-08] MEDS: Vancomycin 1.25gm/NS Premix 275 ML IVPB SCH ×4 (01:18→20:40)
[2019-03-08 04:00] VITALS: BP 137/68
[2019-03-08] MEDS: Piperacillin/Tazobactam 3.375 GM in NS 110 ML IVPB SCH ×3 (05:10→22:52)
--- NOTE | 2019-03-08 07:10 | NUR ---
HAND-OFF: Report given to MARY JO JIMENEZCOMMUNICATIONS INSTRUCTOR. Pt remains stable.
--- NOTE | 2019-03-08 07:43 | NUR ---
NURSE NOTES: Received report from BARBARA Correa. Patient in bed resting, no active s/s cardiac, respiratory distress noticed at this time. Patient on 2L oxygen via NC. SR with HR 88, NG tube in placed, Jevity 1.2 running at 40ml/h, flushed, no residual. PICC line on right upper arm double lumen, asymptomatic, patent, intact, IV fluid running as prescribed rate. Endorsed of visitor restriction. Bed in lowest position, side rails upx3, padded, call light within reach. Will continue to monitor.
[2019-03-08 07:44] LABS: BASOPHILS % (AUTO) 1.1 % (0.0-2.0); EOSINOPHILS % (AUTO) 3.5 % (0.0-3.0); HEMATOCRIT 35.9 % (37.0-47.0); HEMOGLOBIN 11.3 G/DL (12.0-16.0); LYMPHOCYTES % (AUTO) 12.1 % (20.0-45.0); MEAN CORPUSCULAR VOLUME 77 FL (80-99); MONOCYTES % (AUTO) 8.1 % (1.0-10.0); NEUTROPHILS % (AUTO) 75.2 % (45.0-75.0); PLATELET COUNT 607 K/UL (150-450); RED BLOOD COUNT 4.64 M/UL (4.20-5.40); RED CELL DISTRIBUTION WIDTH 15.4 % (11.6-14.8)
[2019-03-08 08:00] VITALS: BP 135/89
[2019-03-08 08:17] LABS: % IRON SATURATION 13 % (15-50); IRON 40 ug/dL (50-175); TOTAL IRON BINDING CAPACITY 308 ug/dL (250-450)
[2019-03-08] MEDS: Docusate 100mg/10ml Liq NG SCH ×2 (08:28→20:37)
[2019-03-08] MEDS: Doxycycline Monohydrate 100mg ORAL SCH ×2 (08:28→20:37)
[2019-03-08] MEDS: Heparin 5000 units/ml inj SUBQ SCH ×2 (08:29→20:37)
[2019-03-08 08:48] LABS: ANION GAP 10 mmol/L (5-15); BLOOD UREA NITROGEN 7 mg/dL (7-18); CALCIUM 9.5 MG/DL (8.5-10.1); CARBON DIOXIDE 26 MMOL/L (21-32); CHLORIDE 104 MMOL/L (98-107); CREATININE 0.6 MG/DL (0.55-1.30); POTASSIUM 3.8 MMOL/L (3.5-5.1); SODIUM 140 MMOL/L (136-145)
[2019-03-08 09:11] LABS: FERRITIN 73 NG/ML (8-388)
[2019-03-08] MEDS: ACYCLOVIR IV SCH ×2 (10:04→20:26)
[2019-03-08] MEDS: NS IV SCH ×2 (10:04→20:26)
--- NOTE | 2019-03-08 10:50 | Cardiac Electrophysiology PN ---
Assessment/Plan Assessment/Plan 1. Acute shortness of breath. Lower extremity duplex is negative for DVT, however, this is sudden change. She is only 23 years old, likelihood of acute coronary event is highly unlikely. This patient had a normal EKG. Chest CT angio ruled out pulmonary embolism. EF 55% 2. Likely viral meningitis. Further management per Dr. Arellano. The patient is on acyclovir. 3. Maculopapular rash. It is of note, the patient's HIV is negative. 4. Microcytic anemia. 5. Hypokalemia. 6. On vancomycin and zosyn for aspiration pna/HCAP per Dr Sinha 7. Dysphagia, S/p NGT DW RN Subjective Subjective No new events on antibiotics and antiviral. In SR on tele. Awaiting transfer to [place] Objective Last 24 Hour Vital Signs Date Time Temp Pulse Resp B/P (MAP) Pulse Ox O2 Delivery O2 Flow Rate FiO2 03/08/19 08:00 98.4 99 18 135/89 (104) 99 03/08/19 07:35 93 21 100 Nasal Cannula 3.0 32 93 23 100 03/08/19 07:35 100 Nasal Cannula 3.0 32 03/08/19 04:00 86 03/08/19 04:00 99.0 88 19 137/68 (91) 99 03/08/19 00:21 98 20 100 Nasal Cannula 3.0 32 03/08/19 00:10 97 18 99 Nasal Cannula 2.0 28 03/08/19 00:00 99.2 94 18 139/95 (110) 99 03/08/19 00:00 104 03/07/19 20:15 102 20 100 Nasal Cannula 3.0 32 03/07/19 20:08 100 20 98 Nasal Cannula 2.0 28 03/07/19 20:07 98 Nasal Cannula 3.0 32 03/07/19 20:00 95 03/07/19 20:00 99.8 99 20 141/90 (107) 98 03/07/19 16:30 99.4 98 18 144/97 (113) 97 03/07/19 16:00 98.9 100 22 147/88 (107) 98 03/07/19 15:27 107 03/07/19 12:59 91 20 100 Nasal Cannula 3.0 32 92 16 100 03/07/19 12:00 98.8 104 20 141/88 (105) 100 03/07/19 11:30 107 Intake and Output 03/07/19 03/08/19 18:59 06:59 Intake Total 2361.583 ml 530 ml Output Total 500 ml 200 ml Balance 1861.583 ml 330 ml Free Water 50 ml 100 ml IV Total 2041.583 ml Tube Feeding 220 ml 430 ml Other 50 ml Output Urine Total 500 ml 200 ml # Voids 6 Laboratory Tests Test 03/07/19 12:45 03/08/19 07:14 Vancomycin Level Trough 12.1 ug/mL (5.0-12.0) H White Blood Count 12.0 K/UL (4.8-10.8) H Red Blood Count 4.64 M/UL (4.20-5.40) Hemoglobin 11.3 G/DL (12.0-16.0) L Hematocrit 35.9 % (37.0-47.0) L Mean Corpuscular Volume 77 FL (80-99) L Mean Corpuscular Hemoglobin 24.3 PG (27.0-31.0) L Mean Corpuscular Hemoglobin Concent 31.5 G/DL (32.0-36.0) L Red Cell Distribution Width 15.4 % (11.6-14.8) H Platelet Count 607 K/UL (150-450) H Mean Platelet Volume 4.5 FL (6.5-10.1) L Neutrophils (%) (Auto) 75.2 % (45.0-75.0) H Lymphocytes (%) (Auto) 12.1 % (20.0-45.0) L Monocytes (%) (Auto) 8.1 % (1.0-10.0) Eosinophils (%) (Auto) 3.5 % (0.0-3.0) H Basophils (%) (Auto) 1.1 % (0.0-2.0) Sodium Level 140 MMOL/L (136-145) Potassium Level 3.8 MMOL/L (3.5-5.1) Chloride Level 104 MMOL/L (98-107) Carbon Dioxide Level 26 MMOL/L (21-32) Anion Gap 10 mmol/L (5-15) Blood Urea Nitrogen 7 mg/dL (7-18) Creatinine 0.6 MG/DL (0.55-1.30) Estimat Glomerular Filtration Rate > 60 mL/min (>60) Glucose Level 100 MG/DL (74-106) Calcium Level 9.5 MG/DL (8.5-10.1) Iron Level 40 ug/dL (50-175) L Total Iron Binding Capacity 308 ug/dL (250-450) Percent Iron Saturation 13 % (15-50) L Unsaturated Iron Binding 268 ug/dL (112-346) Ferritin 73 NG/ML (8-388) Microbiology Date/Time Source Procedure Growth Status 03/05/19 16:00 Urine,Clean Catch Urine Culture - Preliminary YEAST Mixed Gram Positive Organism Resulted Objective HEAD AND NECK: No JVD. LUNGS: Decreased breath sounds. CARDIOVASCULAR: Tachycardic S1 and S2 with no gallop or murmur. ABDOMEN: Soft. EXTREMITIES: No pitting edema. Donaldo Varghese MD Mar 08, 2019 10:49
--- NOTE | 2019-03-08 11:36 | NUR ---
*-* INSURANCE *-* UPDATED AVAILABLE CLINICALS HAVE BEEN FAXED TO: [facility] NO ROOFING LABORER ASSIGNED AT THIS TIME, PLEASE FAX THE REVIEW/CLINICAL P- [phone] / [phone] F- [phone]...REVIEW/CLINICAL
--- NOTE | 2019-03-08 11:43 | NUR ---
RD ASSESSMENT & RECOMMENDATIONS SEE CARE ACTIVITY FOR COMPLETE ASSESSMENT DAILY ESTIMATED NEEDS: Needs based on obesity, infection/ 72kg abw 22-27 kcals/kg 1353-7627 total kcals 1-1.5 g protein/kg 72-108 g total protein 25-30 mL/kg 3244-9380 total fluid mLs NUTRITION DIAGNOSIS: * Inadequate oral intake R/T AMS, weakness, clinical condition as evidenced by R-15% intake of meals since admission, s/p COMPUTER SYSTEM VALIDATION SPECIALIST eval, pt started on NGT feeds. * Altered nutrition related labv alues R/T clinical condition as evidenced by (+) WNV IgM, febrile, elev WBC now trending down. ENTERAL NUTRITION RECOMMENDATIONS: Jevity 1.2 @ 60ml/hr x 24 hrs to provide 1440ml, 1728kcal, 80g prot, 1156ml free water * IF NONORAL FEEDING IS INDICATED AND PART OF POC -> Obtain GI access, initiate Jevity 1.2 @ 20ml/hr x 6 hrs -> Advance 10ml q 4-6 hrs as tolerated to goal rate -> HOB over 30 degrees/ water flush per MD ADDITIONAL RECOMMENDATIONS: * Monitor oral intake and tolerance -> f/up w/ COMPUTER SYSTEM VALIDATION SPECIALIST eval-> now on NGT feeds * Calibrated bedscale wt for accurate CBW * Monitor lytes, replete as needed * Last BM 03/04- consider bowel regimen as needed
[2019-03-08 12:00] VITALS: BP 136/99
--- NOTE | 2019-03-08 12:09 | Pulmonology Progress Note ---
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 neuro eval FC Subjective Allergies: Coded Allergies: No Known Allergies (Unverified , 02/27/19) Subjective TTF AFSS O2 needs stable Lethargic but arousable Denies FC, CP, SOB or cough Naren TF's Objective Last 24 Hour Vital Signs Date Time Temp Pulse Resp B/P (MAP) Pulse Ox O2 Delivery O2 Flow Rate FiO2 03/08/19 08:00 91 03/08/19 08:00 98.4 99 18 135/89 (104) 99 03/08/19 07:35 93 21 100 Nasal Cannula 3.0 32 93 23 100 03/08/19 07:35 100 Nasal Cannula 3.0 32 03/08/19 04:00 86 03/08/19 04:00 99.0 88 19 137/68 (91) 99 03/08/19 00:21 98 20 100 Nasal Cannula 3.0 32 03/08/19 00:10 97 18 99 Nasal Cannula 2.0 28 03/08/19 00:00 99.2 94 18 139/95 (110) 99 03/08/19 00:00 104 03/07/19 20:15 102 20 100 Nasal Cannula 3.0 32 03/07/19 20:08 100 20 98 Nasal Cannula 2.0 28 03/07/19 20:07 98 Nasal Cannula 3.0 32 03/07/19 20:00 95 03/07/19 20:00 99.8 99 20 141/90 (107) 98 03/07/19 16:30 99.4 98 18 144/97 (113) 97 03/07/19 16:00 98.9 100 22 147/88 (107) 98 03/07/19 15:27 107 03/07/19 12:59 91 20 100 Nasal Cannula 3.0 32 92 16 100 Intake and Output 03/07/19 03/08/19 19:00 07:00 Intake Total 2106.291 ml 530 ml Output Total 500 ml 200 ml Balance 1606.291 ml 330 ml Free Water 50 ml 100 ml IV Total 1806.291 ml Tube Feeding 200 ml 430 ml Other 50 ml Output Urine Total 500 ml 200 ml # Voids 3 General Appearance: no acute distress, other - letharig but arousable HEENT: normocephalic, atraumatic, anicteric, mucous membranes moist Respiratory/Chest: rhonchi Cardiovascular: normal peripheral pulses, normal rate, regular rhythm Abdomen: normal bowel sounds, soft, non tender, no organomegaly, non distended , no mass Extremities: no cyanosis, no clubbing, no edema Microbiology Date/Time Source Procedure Growth Status 03/05/19 16:00 Urine,Clean Catch Urine Culture - Preliminary YEAST Mixed Gram Positive Organism Resulted Laboratory Tests 03/07/19 12:45: Vancomycin Level Trough 12.1H 03/08/19 07:14: White Blood Count 12.0H, Red Blood Count 4.64, Hemoglobin 11.3L, Hematocrit 35.9L, Mean Corpuscular Volume 77L, Mean Corpuscular Hemoglobin 24.3L, Mean Corpuscular Hemoglobin Concent 31.5L, Red Cell Distribution Width 15.4H, Platelet Count 607H, Mean Platelet Volume 4.5L, Neutrophils (%) (Auto) 75.2H, Lymphocytes (%) (Auto) 12.1L, Monocytes (%) (Auto) 8.1, Eosinophils (%) (Auto) 3.5H, Basophils (%) (Auto) 1.1, Sodium Level 140, Potassium Level 3.8, Chloride Level 104, Carbon Dioxide Level 26, Anion Gap 10, Blood Urea Nitrogen 7, Creatinine 0.6, Estimat Glomerular Filtration Rate > 60, Glucose Level 100, Calcium Level 9.5, Iron Level 40L, Total Iron Binding Capacity 308, Percent Iron Saturation 13L, Unsaturated Iron Binding 268, Ferritin 73 Current Medications Medications (Trade) Dose Ordered Sig/Kandi Route PRN Reason Start Time Stop Time Status Last Admin Dose Admin Acetaminophen (Tylenol) 650 mg Q6H PRN ORAL Mild Pain/Temp > 100.5 03/07/19 18:00 03/30/19 11:54 Acyclovir 750 mg/ Sodium Chloride 275 ml @ 275 mls/hr Q8HR@0200,1000,1800 IV 03/08/19 00:00 04/07/19 00:00 03/08/19 10:04 Albuterol/ Ipratropium (Albuterol/ Ipratropium) 3 ml Q4H PRN HHN Shortness of Breath 03/07/19 16:45 03/10/19 16:44 Albuterol/ Ipratropium (Albuterol/ Ipratropium) 3 ml Q6HRT HHN 03/07/19 19:00 03/10/19 18:59 03/08/19 07:35 Chlorhexidine Gluconate (Mickie-Hex 2%) 1 applic DAILY@2000 TOPIC 03/07/19 20:00 03/31/19 19:59 03/07/19 20:13 Dextrose (Dextrose 50%) 25 ml Q30M PRN IV Hypoglycemia 03/07/19 16:30 03/29/19 18:29 Dextrose (Dextrose 50%) 50 ml Q30M PRN IV Hypoglycemia 03/07/19 16:30 03/29/19 18:29 Docusate Sodium (Colace) 100 mg EVERY 12 HOURS NG 03/07/19 21:00 04/05/19 09:29 03/08/19 08:28 Doxycycline Monohydrate (Doxycycline Monohydrate) 100 mg EVERY 12 HOURS ORAL 03/07/19 21:00 03/12/19 20:59 03/08/19 08:28 Heparin Sodium (Porcine) (Heparin 5000 units/ml) 5,000 units EVERY 12 HOURS SUBQ 03/07/19 21:00 03/29/19 20:59 03/08/19 08:29 Ondansetron HCl (Zofran) 4 mg Q6H PRN IVP Nausea & Vomiting 03/07/19 18:00 03/29/19 11:56 Piperacillin Sod/ Tazobactam Sod 3.375 gm/Sodium Chloride 110 ml @ 27.5 mls/hr EVERY 8 HOURS IVPB 03/07/19 22:00 03/12/19 21:59 03/08/19 05:10 Sodium Chloride 1,000 ml @ 100 mls/hr Q10H IV 03/07/19 17:30 04/06/19 17:29 03/08/19 02:34 Vancomycin HCl (Vanco rx to dose) 1 ea DAILY PRN MISC Per rx protocol 03/07/19 17:30 04/06/19 17:29 Vancomycin/Sodium Chloride 275 ml @ 183.333 mls/hr Q6H IVPB 03/07/19 20:00 03/12/19 01:59 03/08/19 08:28 Moises Hansen MD Mar 08, 2019 12:09
--- NOTE | 2019-03-08 12:22 | NUR ---
CASE MANAGEMENT:REVIEW 03/08/19 SI: VIRAL MENINGITIS, WEST NILE VIRUS 98.4 99 18 135/89 99% NC 3L WBC 12.0; H/H 11.3/35.9; PLT 607 IS:IVF NS @100/HR IV ZOSYN Q8H IV VANCOMYCIN Q6H DOXYCYCLINE PO Q12H IV ACYCLOVIR Q8HRS HEPARIN SUBQ Q12H ALBUTEROL HHN Q6/PRN : 2E TELE UNIT PLAN OF CARE: ABG CXR OK TO TX PER DR. AGUSTIN
--- NOTE | 2019-03-08 14:10 | NUR ---
NURSE NOTES: Received phone call from [facility] regarding need of clarification for FTA, Gonorrhea, Chlamydia. Per onelia Barnes to put order for FTA, gonorrhea, Chlamydia. Order noted, entered, carried out.
--- NOTE | 2019-03-08 14:12 | General Progress Note ---
Assessment/Plan Problem List: (1) Maculopapular rash, generalized ICD Codes: R21 - Rash and other nonspecific skin eruption SNOMED: 646585652 (2) Meningitis ICD Codes: G03.9 - Meningitis, unspecified SNOMED: 2871493 (3) Acute febrile illness ICD Codes: R50.9 - Fever, unspecified SNOMED: 705138335 (4) Fever ICD Codes: R50.9 - Fever, unspecified SNOMED: 944486112 (5) Acute respiratory failure with hypoxia ICD Codes: J96.01 - Acute respiratory failure with hypoxia SNOMED: 00755290, 892300189 (6) Aspiration pneumonia ICD Codes: J69.0 - Pneumonitis due to inhalation of food and vomit SNOMED: 312476124 Status: stable Assessment/Plan: Trenton Elena is a 23 yo woman with no known PMH who presented with fever and AMS , 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 #s/p Severe sepsis (WBC, heart rate, respiratory rate) 2/2 right lower lobe aspiration pneumonia -resolved #Acute hypoxic respiratory failure 2/2 aspiration pneumonia - IMPROVING #Metabolic encephalopathy 2/2 aspiration pneumonia - IMPROVING > ABG 7.46/35.9/59.7/25.1 on 100% non rebreather > CT pulmonary angiogram negative for pulmonary embolism, shows right lower lobe consolidation. - Telemetry - blood cultures: negative to date - sputum cultures: no growth - Titrate FiO2 to SpO2 > 92% - Continue Vancomycin day 4 - Continue Cefepime/Flagyl day 4 - Continue Normal saline 100 cc/hr - duonebs q6hr PRN - Appreciate ID recommendations: Dr. Sinha - Appreciate Pulmonology recommendations: Dr. Hansen - Appreciate Cardiology recommendations: Dr. Abimael BUENROSTRO to chair today. continue to work with physical therapy. suspect West nile meningitis. Improving. Waiting for confirmation test. > CT head overall unremarkable > Afebrile in past 24 hours > Negative: HIV, hepatitis panel - CSF notable for 45 WBC with 96% lymphocytes, 54 glucose, elevated protein 140. Gram stain negative and bacterial culture negative thus far - ID consult bri Tavarez appreciated -Per ID: Discontinue ceftriaxone and vancomycin (4 days) Continue acyclovir, doxycycline. until studies are finalized. Waiting on HSV PCR and West nile confirmation. S/p tamiflu - F/u on repeat WNV - S/p decadron x 1 in ED. CSF studies not consistent with strep meningitis, hold off on further steroids - F/U further studies pending including WNV, HSV, VZV - Tylenol PRN fever - physical therapy for rehab - Per public health department: recommend RPR, gonorrhea and chlamydia. #severe genearlized weakness and dysarthria- IMPROVING. likely sequela from meningitis and pneumonia improving - physical therapy and speech eval - treatment of meningitis as above #dysphagia 2/2 west nile meningitis - NG tube insertion and Tube feeds - appreciate dietary recommendations - jevity at goal of 60 cc/hr #Iron deficiency anemia - %sat 13, ferritin 73. - Will need to start FeSO4 after resolution of infection Hypokalemia Hypomagnesemia - Replace as needed Nausea/vomiting - Zofran PRN FEN diet: Continue IV fluids Regular diet when awake but otherwise NPO Heparin subq DVT PPX Discussed with RN, Infectious Disease, Cardiology and Pulmonology. I spent 38 minutes on this patient's care, including >50% on counseling and/or coordination of care. Time of note may not reflect time patient was seen Subjective Date patient seen: Mar 08, 2019 Constitutional: Denies: chills, diaphoresis, fever, malaise, weakness, other HEENT: Denies: eye pain, blurred vision, tearing, double vision, ear pain, ear discharge, nose pain, nose congestion, throat pain, throat swelling, mouth pain , mouth swelling, other Cardiovascular: Denies: chest pain, edema, irregular heart rate, lightheadedness, palpitations, syncope, other Respiratory: Denies: cough, orthopnea, shortness of breath, SOB with excertion , SOB at rest, sputum, stridor, wheezing, other Gastrointestinal/Abdominal: Denies: abdomen distended, abdominal pain, black stools, tarry stools, blood in stool, constipated, diarrhea, difficulty swallowing, nausea, poor appetite, poor fluid intake, rectal bleeding, vomiting , other Genitourinary: Denies: burning, discharge, frequency, flank pain, hematuria, incontinence, pain, urgency, other Neurologic/Psychiatric: Denies: anxiety, depressed, emotional problems, headache, numbness, paresthesia, pre-existing deficit, seizure, tingling, tremors, weakness, other Endocrine: Denies: excessive sweating, flushing, intolerance to cold, intolerance to heat, increased hunger, increased thirst, increased urine, unexplained weight gain, unexplained weight loss, other Hematologic/Lymphatic: Denies: anemia, easy bleeding, easy bruising, other Allergies: Coded Allergies: No Known Allergies (Unverified , 02/27/19) Subjective No acute events overnight per nursing. still on 2L nasal cannula. Continues to feel stronger, more alert. Working with physical therapy. At goal tube feeds. Pending transfer to [place]. Denies chest pain, fever, chills, neck pain or stiffness Objective Last 24 Hour Vital Signs Date Time Temp Pulse Resp B/P (MAP) Pulse Ox O2 Delivery O2 Flow Rate FiO2 03/08/19 13:36 100 29 99 Nasal Cannula 2.0 28 102 27 100 03/08/19 12:00 91 03/08/19 12:00 99.0 94 20 136/99 (111) 100 03/08/19 08:00 91 03/08/19 08:00 98.4 99 18 135/89 (104) 99 03/08/19 07:35 93 21 100 Nasal Cannula 3.0 32 93 23 100 03/08/19 07:35 100 Nasal Cannula 3.0 32 03/08/19 04:00 86 03/08/19 04:00 99.0 88 19 137/68 (91) 99 03/08/19 00:21 98 20 100 Nasal Cannula 3.0 32 03/08/19 00:10 97 18 99 Nasal Cannula 2.0 28 03/08/19 00:00 99.2 94 18 139/95 (110) 99 03/08/19 00:00 104 03/07/19 20:15 102 20 100 Nasal Cannula 3.0 32 03/07/19 20:08 100 20 98 Nasal Cannula 2.0 28 03/07/19 20:07 98 Nasal Cannula 3.0 32 03/07/19 20:00 95 03/07/19 20:00 99.8 99 20 141/90 (107) 98 03/07/19 16:30 99.4 98 18 144/97 (113) 97 03/07/19 16:00 98.9 100 22 147/88 (107) 98 03/07/19 15:27 107 Intake and Output 03/07/19 03/08/19 19:00 07:00 Intake Total 2106.291 ml 530 ml Output Total 500 ml 200 ml Balance 1606.291 ml 330 ml Free Water 50 ml 100 ml IV Total 1806.291 ml Tube Feeding 200 ml 430 ml Other 50 ml Output Urine Total 500 ml 200 ml # Voids 3 Laboratory Tests 03/08/19 07:14: White Blood Count 12.0H, Red Blood Count 4.64, Hemoglobin 11.3L, Hematocrit 35.9L, Mean Corpuscular Volume 77L, Mean Corpuscular Hemoglobin 24.3L, Mean Corpuscular Hemoglobin Concent 31.5L, Red Cell Distribution Width 15.4H, Platelet Count 607H, Mean Platelet Volume 4.5L, Neutrophils (%) (Auto) 75.2H, Lymphocytes (%) (Auto) 12.1L, Monocytes (%) (Auto) 8.1, Eosinophils (%) (Auto) 3.5H, Basophils (%) (Auto) 1.1, Sodium Level 140, Potassium Level 3.8, Chloride Level 104, Carbon Dioxide Level 26, Anion Gap 10, Blood Urea Nitrogen 7, Creatinine 0.6, Estimat Glomerular Filtration Rate > 60, Glucose Level 100, Calcium Level 9.5, Iron Level 40L, Total Iron Binding Capacity 308, Percent Iron Saturation 13L, Unsaturated Iron Binding 268, Ferritin 73 03/08/19 12:21: Arterial Blood pH 7.376, Arterial Blood Partial Pressure CO2 48.5H, Arterial Blood Partial Pressure O2 116.0H, Arterial Blood HCO3 27.8H, Arterial Blood Oxygen Saturation 97.8, Arterial Blood Base Excess 2, Anselmo Test Positive Height (Feet): 5 Height (Inches): 7.00 Weight (Pounds): 228 General Appearance: WD/WN, no apparent distress, alert EENT: PERRL/EOMI, normal ENT inspection Neck: non-tender, normal alignment, supple Cardiovascular: normal peripheral pulses, normal rate, regular rhythm, no JVD Respiratory/Chest: chest wall non-tender, lungs clear Abdomen: normal bowel sounds, non tender, soft Extremities: normal range of motion, non-tender, normal inspection Skin: normal pigmentation, warm/dry Surinder Lester D.O. Mar 08, 2019 14:12
--- NOTE | 2019-03-08 14:12 | NUR ---
NURSE NOTES: Spoke with Viki, director of casework from [facility], per Viki, will callback when the room ready.
[2019-03-08 16:00] VITALS: BP 140/92
--- NOTE | 2019-03-08 18:00 | NUR ---
NURSE NOTES: Called Pharmacy for clarification regarding Zosyn running, Acyclovir schedule for 1800 which is incompatible. Per Pharmacy, finish Zosyn and then start Acyclovir.
--- NOTE | 2019-03-08 19:00 | NUR ---
NURSE NOTES: Per Dr. Lester, discharge patient to [place] [facility] when the bed is ready. Per , continue PICC line, hospital medication, NGT. Addendum: 03/08/19 at 1933 by MARY JO PETERSON RN and oxygen. Order noted, entered, carried out.
--- NOTE | 2019-03-08 19:39 | NUR ---
HAND-OFF: Report given to BARBARA Mathews.
--- NOTE | 2019-03-08 19:45 | NUR ---
NURSE NOTES: Received patient from BARBARA Menchaca. Patient was resting in bed, no signs of distress or pain. NGT with Jevity 1.2 running at 50 mL/hr, 60 mL/hr for goal. Plan of care endorsed from day shift nurse, awaiting callback from piano case and bench assembler at [facility] for available bed. Will continue plan of care.
--- NOTE | 2019-03-08 19:55 | NUR ---
NURSE NOTES: Called pharmacy to clarify timing for antibiotics, talked to Cuoc. Per pharmacist, okay to Y-site acyclovir and vanco if zosyn is still running on other lumen.
[2019-03-08 20:00] VITALS: BP 144/103
[2019-03-08] MEDS: Dyna-Hex 2% Top Sol 2oz TOPIC SCH (20:36)
[2019-03-09] VITALS: BP 137/97
[2019-03-09] MEDS: Albuterol/Ipratropium 3ml neb HHN SCH ×4 (01:00→19:44)
[2019-03-09] MEDS: NS IV SCH ×2 (02:42→11:28)
[2019-03-09] MEDS: ACYCLOVIR IV SCH ×2 (02:42→11:28)
[2019-03-09] MEDS: Vancomycin 1.25gm/NS Premix 275 ML IVPB SCH ×3 (02:43→14:00)
[2019-03-09 04:00] VITALS: BP 139/93
[2019-03-09] MEDS: Piperacillin/Tazobactam 3.375 GM in NS 110 ML IVPB SCH ×2 (05:58→14:00)
[2019-03-09 06:21] LABS: BASOPHILS % (AUTO) 0.6 % (0.0-2.0); EOSINOPHILS % (AUTO) 3.8 % (0.0-3.0); HEMATOCRIT 33.7 % (37.0-47.0); HEMOGLOBIN 10.4 G/DL (12.0-16.0); LYMPHOCYTES % (AUTO) 17.3 % (20.0-45.0); MEAN CORPUSCULAR VOLUME 78 FL (80-99); MONOCYTES % (AUTO) 7.9 % (1.0-10.0); NEUTROPHILS % (AUTO) 70.5 % (45.0-75.0); PLATELET COUNT 566 K/UL (150-450); RED BLOOD COUNT 4.33 M/UL (4.20-5.40); RED CELL DISTRIBUTION WIDTH 15.4 % (11.6-14.8); WHITE BLOOD COUNT 10.9 K/UL (4.8-10.8)
[2019-03-09 06:31] LABS: ANION GAP 7 mmol/L (5-15); BLOOD UREA NITROGEN 7 mg/dL (7-18); CARBON DIOXIDE 30 MMOL/L (21-32); CHLORIDE 106 MMOL/L (98-107); CREATININE 0.6 MG/DL (0.55-1.30); POTASSIUM 3.4 MMOL/L (3.5-5.1); SODIUM 143 MMOL/L (136-145)
--- NOTE | 2019-03-09 07:37 | NUR ---
HAND-OFF: Report given to BARBARA Nascimento. Plan of care endorsed.
--- NOTE | 2019-03-09 07:53 | NUR ---
Received report from BARBARA Mathews. Patient is A/O x4. Awake and responsive to verbal and tactile stimuli. Breathing regular with no distress noted at this time. Patient's bed is in lowest position with bed alarm on and brakes enclosed. Will continue to monitor for any changes in condition.
[2019-03-09 08:00] VITALS: BP 138/94
[2019-03-09] MEDS: Docusate 100mg/10ml Liq NG SCH (09:23)
[2019-03-09] MEDS: Doxycycline Monohydrate 100mg ORAL SCH (09:23)
[2019-03-09] MEDS: Heparin 5000 units/ml inj SUBQ SCH (09:26)
--- NOTE | 2019-03-09 09:37 | NUR ---
TRANSFER UPDATE FAXED TRANSFER ORDER TP [facility] RECEIVED CALL FROM [facility] [employer]UEL MANAGER SHLOMO T: [phone] F: [phone] PROVIDED PHONE NUMBER FOR MD TO MD CONVERSATION FAXED UPDATED CLINICALS ALL FILM ON DISC WAIT FOR ADDITIONAL INSTRUCTIONS FROM [facility]
--- NOTE | 2019-03-09 09:42 | NUR ---
NURSE NOTES: Tanisha called and advised me that [facility] needs a discharge summary from md márquez, I notified Md in person.
--- NOTE | 2019-03-09 09:49 | NUR ---
SWALLOW/SPEECH THERAPY NOTE: MEDICAL STATUS UPDATES: ADMITTED 02/27/19 (ONE AND A HALF WEEKS) WITH FEVER, AMS, AND HEADACHE 3 DAYS. HAS ACUTE SEVERE SEPSIS, ASPIRATION PNEUMONIA AND PNEUMONITIS (INHALATION OF FOOD/VOMIT (R LL), WEST NILE VIRAL MENINGITIS, AMS METABOLIC ENCEPHALOPATHY, ACUTE RESPIRATORY FAILURE WITH HYPOXIA (WAS ON REBREATHER), ACQUIRED DYSPHAGIA (WITH LIQUIDS AND PUREED DURING SWALLOW EVAL) AND DYSPHONIA/DYSARTHRIA AND COG-LINGUISTIC DEFICITS SLOWLY RESOLVING. 03/07/19 CXR DIFFUSE CONSOLIDATION RIGHT MIDDLE AND LOWER LOBES AND ELEVATED RIGHT HEMIDIAPHRAGM. SWALLOW STATUS: PATIENT MORE ALERT AND READY FOR MOD BARIUM SWALLOW STUDY TODAY. STILL HAS A 12 CROATIAN NGT. MANAGING HER ORAL SECRETIONS WELL. TONGUE/LIP MOVEMENTS GROSSLY FUNCTIONAL. TONGUE NEEDS ORAL CARE AND HAS A MILD TREMOR WITH INTENTION MOSTLY. PATIENT IS HUNGRY. SPEECH AND LANGUAGE-COGNITIVE SKILLS: ORDER FOR FORMAL SPEECH EVAL, SCREENING COMPLETED TODAY DUE TO TIME CONSTRAINTS. ALERT AND ABLE TO EXPRESS BASIC NEEDS. STILL HAS DYSARTHRIA AND DYSPHONIA. HE VOICE SOFT SHE HAS A REDUCED SPEAKING RATE, PAUSES FOR WORD-RETRIEVAL AND RECENT MEMORY ISSUES. HEAD CT NORMAL, SHE IS ORIENTED X4 (INCLUDES SITUATION). BORN HERE BUT PARENTS ARE FROM [place]. HAS 5 SIBLINGS AND PARENTS ARE IN [place]. HAS A BOYFRIEND. RESP RATE UP TO 27 YESTERDAY TODAY 20. PLAN: COMPLETE MODIFIED BARIUM SWALLOW STUDY TODAY CONTINUE WITH NONORAL FEEDINGS (OSMOLITE) AND ORAL CARE (BRUSH TONGUE IT IS WHITE). D/W BARBARA VELEZ AND SILVER BUFFER PER ROSIE JIMENEZ, THE PATIENT MAY BE DISCHARGED TO [place] LATER TODAY. Addendum: 03/09/19 at 0956 by PINA TREVINO FUTURES TRADER LEFT MESSAGE WITH RD REGARDNG DIET TYPE IF PO TO START. SHE HAS OBESITY CLASS II PER RD.
--- NOTE | 2019-03-09 10:38 | Cardiac Electrophysiology PN ---
Assessment/Plan Assessment/Plan 1. Acute shortness of breath. Lower extremity duplex is negative for DVT, however, this is sudden change. She is only 23 years old, likelihood of acute coronary event is highly unlikely. This patient had a normal EKG. Chest CT angio ruled out pulmonary embolism. EF 55% 2. Likely viral meningitis. Further management per Dr. Arellano. The patient is on acyclovir. 3. Maculopapular rash. It is of note, the patient's HIV is negative. 4. Microcytic anemia. 5. Hypokalemia. 6. On vancomycin and zosyn for aspiration pna/HCAP per Dr Sinha 7. Dysphagia, S/p NGT DW RN Awaiting transfer to [place] Subjective Subjective More alert on antibiotics and antiviral. In SR on tele. Still awaiting transfer to [place]. Objective Last 24 Hour Vital Signs Date Time Temp Pulse Resp B/P (MAP) Pulse Ox O2 Delivery O2 Flow Rate FiO2 03/09/19 08:00 99.5 94 18 138/94 (109) 100 03/09/19 04:00 111 03/09/19 04:00 97.8 92 20 139/93 (108) 95 03/09/19 00:00 98.1 91 21 137/97 (110) 97 03/09/19 00:00 88 03/08/19 21:00 98 Nasal Cannula 3.0 32 03/08/19 21:00 103 28 100 Nasal Cannula 2.0 28 106 24 98 03/08/19 20:00 99 03/08/19 20:00 99.2 104 20 144/103 (117) 97 03/08/19 16:00 104 03/08/19 16:00 98.6 100 18 140/92 (108) 93 03/08/19 13:36 100 29 99 Nasal Cannula 2.0 28 102 27 100 03/08/19 12:00 91 03/08/19 12:00 99.0 94 20 136/99 (111) 100 Intake and Output 03/08/19 03/09/19 19:00 07:00 Intake Total 250 ml 3041.666 ml Output Total 2300 ml Balance -2050 ml 3041.666 ml Free Water 100 ml IV Total 100 ml 2391.666 ml Tube Feeding 50 ml 650 ml Output Urine Total 2300 ml # Bowel Movements 1 Laboratory Tests Test 03/08/19 12:21 03/08/19 16:03 03/09/19 04:49 Arterial Blood pH 7.376 (7.350-7.450) Arterial Blood Partial Pressure CO2 48.5 mmHg (35.0-45.0) H Arterial Blood Partial Pressure O2 116.0 mmHg (75.0-100.0) H Arterial Blood HCO3 27.8 mmol/L (22.0-26.0) H Arterial Blood Oxygen Saturation 97.8 % (95-100) Arterial Blood Base Excess 2 (-2-2) Anselmo Test Positive Chlamydia trachomatis RNA Pending Neisseria gonorrhoeae RNA Pending White Blood Count 10.9 K/UL (4.8-10.8) H Red Blood Count 4.33 M/UL (4.20-5.40) Hemoglobin 10.4 G/DL (12.0-16.0) L Hematocrit 33.7 % (37.0-47.0) L Mean Corpuscular Volume 78 FL (80-99) L Mean Corpuscular Hemoglobin 24.0 PG (27.0-31.0) L Mean Corpuscular Hemoglobin Concent 30.9 G/DL (32.0-36.0) L Red Cell Distribution Width 15.4 % (11.6-14.8) H Platelet Count 566 K/UL (150-450) H Mean Platelet Volume 4.2 FL (6.5-10.1) L Neutrophils (%) (Auto) 70.5 % (45.0-75.0) Lymphocytes (%) (Auto) 17.3 % (20.0-45.0) L Monocytes (%) (Auto) 7.9 % (1.0-10.0) Eosinophils (%) (Auto) 3.8 % (0.0-3.0) H Basophils (%) (Auto) 0.6 % (0.0-2.0) Sodium Level 143 MMOL/L (136-145) Potassium Level 3.4 MMOL/L (3.5-5.1) L Chloride Level 106 MMOL/L (98-107) Carbon Dioxide Level 30 MMOL/L (21-32) Anion Gap 7 mmol/L (5-15) Blood Urea Nitrogen 7 mg/dL (7-18) Creatinine 0.6 MG/DL (0.55-1.30) Estimat Glomerular Filtration Rate > 60 mL/min (>60) Glucose Level 103 MG/DL (74-106) Calcium Level 9.0 MG/DL (8.5-10.1) Objective HEAD AND NECK: No JVD. LUNGS: Decreased breath sounds. CARDIOVASCULAR: Tachycardic S1 and S2 with no gallop or murmur. ABDOMEN: Soft. EXTREMITIES: No pitting edema. Donaldo Varghese MD Mar 09, 2019 10:38
--- NOTE | 2019-03-09 10:41 | NUR ---
CASE MANAGEMENT:REVIEW 03/09/19 SI: VIRAL MENINGITIS. WEST NILE VIRUS 99.5 111 20 139/93 95% ON 2L/NC WBC+10.9 H/H-10.4/33.7 PCO2+48.5 IS: IV ACYCLOVIR Q8HRS IV ZOSYN Q8HRS IV VANCOMYCIN Q6HRS DOXYCYCLINE PO Q12 IVF@100/HR : TELEMETRY STATUS PLAN: WAITING TO TRANSFER TO [place]
[2019-03-09 12:00] VITALS: BP 140/101
--- NOTE | 2019-03-09 12:43 | Discharge Summary ---
Discharge Summary Hospital Course Date of Admission Feb 27, 2019 at 17:58 Date of Discharge 03/09/19 Admitting Diagnosis acute febrile illness, altered mental status HPI Ade Elena is a 23 year old female who was admitted on Feb 27, 2019 at 17: 58 for Acute Febrile Illness Consultations Infectious disease Cardiology pulmonology Procedures Lumbar puncture CT head CTPA Hospital Course Trenton Elena is a 23 yo woman with no known PMH who presented with fever and AMS. 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 Trenton Elena is a 23 yo woman with no known PMH who presented with fever and AMS. Unable to obtain history from patient as patient with AMS and not verbally responsive. No contact or family information in chart for collateral information. Per ED records, patient brought in after friend reported that patient looked like she was about to faint at her house. Patient noted with fever to 102.6 on admission and tachycardic to 100s. Labs notable for leukocytosis 13.4 (today, none on admission, likely 2/2 decadron in ED), hypokalemia 3.0 (resolved today), and CK 519. CT head unremarkable. LP was done in ED, CSF analysis showed negative gram stain, negative bacterial culture to date, 45 WBC, 54 RBC, 54 glucose, 140 protein, and lymphocyte predominant. The following CSF studies were sent: HSV PCR West Nile zoster Rickettsia typhus. Patient was started on antibiotics and antiviral with ceftriaxone, acyclovir, and vancomycin IV. Patient was seen by infectious disease who recommended to add doxycycline due to a maculopapular rash that was observed on her upper and lower extremities bilaterally. West Nile virus came back positive. A confirmatory West Nile virus was sent and still pending upon discharge. HSV PCR came back negative so acyclovir was discontinued. CSF culture was negative for bacterial growth so ceftriaxone and vancomycin was discontinued. The patient also completed 10 days of doxycyline therapy. On hospital day 6 the patient had acute hypoxic respiratory failure and was started on a nonrebreather. CT pulmonary angiogram was performed which was negative for pulmonary embolism but did show a right lower lobe consolidation. Patient was treated for Severe sepsis secondary to aspiration pneumonia with vancomycin and cefepime and Flagyl. Patient was given IV fluids.Patient has completed 5 days of antibiotics at discharge. Blood cultures were drawn and were negative. Sputum cultures were drawn and showed no growth. The patient WBC count and respiratory status improved greatly with treatment. She was hemodynamically stable and on room air on discharge. .Would consider continuing antibiotics for 2 more days Due to the patient's West Nile virus and aspiration pneumonia the patient experienced severe generalized weakness as well as dysarthria and dysphasia. An NG tube was inserted for tube feeds. She was seen by speech therapy, as well as physical therapy. The patient has improved tremendously. She was able to ambulate with physical therapy. The patient underwent a video swallow evaluation on the day of discharge. An RPR was checked and was positive with a ratio of 1:1. The FTAABS confirmatory test is still pending on discharge. Both gonorrhea and chlamydia PCR are also pending. The patient was transferred to [facility] as she is a patient there. She was hemodynamically stable on discharge. #s/p Severe sepsis (WBC, heart rate, respiratory rate) 2/2 right lower lobe aspiration pneumonia -resolved #Acute hypoxic respiratory failure 2/2 aspiration pneumonia - IMPROVING #Metabolic encephalopathy 2/2 aspiration pneumonia - IMPROVING > ABG 7.46/35.9/59.7/25.1 on 100% non rebreather > CT pulmonary angiogram negative for pulmonary embolism, shows right lower lobe consolidation. - Telemetry - blood cultures: negative to date - sputum cultures: no growth - Titrate FiO2 to SpO2 > 92% - Continue Vancomycin day 5 - Continue Cefepime/Flagyl day 5 - Continue Normal saline 100 cc/hr - duonebs q6hr PRN - Appreciate ID recommendations: Dr. Sinha - Appreciate Pulmonology recommendations: Dr. Hansen - Appreciate Cardiology recommendations: Dr. Abimael BUENROSTRO to chair today. continue to work with physical therapy. suspect West nile meningitis. Improving. Waiting for confirmation test. > CT head overall unremarkable > Afebrile in past 24 hours > Negative: HIV, hepatitis panel - CSF notable for 45 WBC with 96% lymphocytes, 54 glucose, elevated protein 140. Gram stain negative and bacterial culture negative thus far - ID consult bri Tavarez appreciated -Per ID: Discontinue ceftriaxone and vancomycin (4 days) Continue acyclovir, doxycycline. until studies are finalized. Waiting on HSV PCR and West nile confirmation. S/p tamiflu - F/u on repeat WNV - S/p decadron x 1 in ED. CSF studies not consistent with strep meningitis, hold off on further steroids - F/U further studies pending including WNV, HSV, VZV - Tylenol PRN fever - physical therapy for rehab - Per public health department: recommend RPR, gonorrhea and chlamydia. #Positive RPR - follow up on FTA-ABS - follow up on gonorrhea and chlamydia #severe genearlized weakness and dysarthria- IMPROVING. likely sequela from meningitis and pneumonia improving - physical therapy and speech eval - treatment of meningitis as above #dysphagia 2/2 west nile meningitis - NG tube insertion and Tube feeds - appreciate dietary recommendations - jevity at goal of 60 cc/hr - video swallow today #Iron deficiency anemia - %sat 13, ferritin 73. - Will need to start FeSO4 after resolution of infection Hypokalemia Hypomagnesemia - Replace as needed Nausea/vomiting - Zofran PRN FEN diet: Continue IV fluids Regular diet Heparin subq DVT PPX PHysical Exam Vitals Temp 97.9 Pulse: 75 Resp 16 BP 138/87 SpO2: 98% on RA General Appearance: WD/WN, no apparent distress, alert EENT: PERRL/EOMI, normal ENT inspection Neck: non-tender, normal alignment, supple Cardiovascular: normal peripheral pulses, normal rate, no JVD Respiratory/Chest: chest wall non-tender, lungs clear, normal breath sounds, no respiratory distress Abdomen: normal bowel sounds, non tender, soft Extremities: normal range of motion, non-tender Neurologic: sales operations II-XII grossly normal, no motor/sensory deficits, alert, oriented x 3 Skin: normal pigmentation, warm/dry Discussed with RN, immigration case worker, [facility], infectious disease and pulmonology. I spent >30 minutes on this patient's care, including >50% on counseling and/or coordination of care. Time of note may not reflect time patient was seen Discharge Condition Upon Discharge: improving Discharge Disposition Patient was discharged to [place] Discharge Diagnoses: (1) West Nile meningoencephalitis (2) Acute respiratory failure with hypoxia (3) 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) (4) Meningitis (5) Dysarthria (6) Dysphagia (7) Acute febrile illness (8) Maculopapular rash, generalized (9) Aspiration pneumonia (10) Severe sepsis Surinder Lester D.O. Mar 09, 2019 12:43
--- NOTE | 2019-03-09 14:20 | General Progress Note ---
Assessment/Plan Problem List: (1) Maculopapular rash, generalized ICD Codes: R21 - Rash and other nonspecific skin eruption SNOMED: 730108200 (2) Meningitis ICD Codes: G03.9 - Meningitis, unspecified SNOMED: 3385351 (3) Acute febrile illness ICD Codes: R50.9 - Fever, unspecified SNOMED: 184099263 (4) Fever ICD Codes: R50.9 - Fever, unspecified SNOMED: 476252194 (5) Acute respiratory failure with hypoxia ICD Codes: J96.01 - Acute respiratory failure with hypoxia SNOMED: 90218865, 130149554 (6) Aspiration pneumonia ICD Codes: J69.0 - Pneumonitis due to inhalation of food and vomit SNOMED: 262384764 Status: stable Assessment/Plan: dated oh my God, #s/p Severe sepsis (WBC, heart rate, respiratory rate) 2/2 right lower lobe aspiration pneumonia -resolved #Acute hypoxic respiratory failure 2/2 aspiration pneumonia - IMPROVING #Metabolic encephalopathy 2/2 aspiration pneumonia - IMPROVING > ABG 7.46/35.9/59.7/25.1 on 100% non rebreather > CT pulmonary angiogram negative for pulmonary embolism, shows right lower lobe consolidation. - Telemetry - blood cultures: negative to dateshe was - sputum cultures: no growth - Titrate FiO2 to SpO2 > 92% - Continue Vancomycin day 5 - Continue Cefepime/Flagyl day 5 - Continue Normal saline 100 cc/hr - duonebs q6hr PRN - Appreciate ID recommendations: Dr. Sinha - Appreciate Pulmonology recommendations: Dr. Hansen - Appreciate Cardiology recommendations: Dr. Abimael BUENROSTRO to chair today. continue to work with physical therapy. suspect West nile meningitis. Improving. Waiting for confirmation test. > CT head overall unremarkable > Afebrile in past 24 hours > Negative: HIV, hepatitis panel - CSF notable for 45 WBC with 96% lymphocytes, 54 glucose, elevated protein 140. Gram stain negative and bacterial culture negative thus far - ID consult bri Tavarez appreciated -Per ID: Discontinue ceftriaxone and vancomycin (4 days) Continue acyclovir, doxycycline. until studies are finalized. Waiting on HSV PCR and West nile confirmation. S/p tamiflu - F/u on repeat WNV - S/p decadron x 1 in ED. CSF studies not consistent with strep meningitis, hold off on further steroids - F/U further studies pending including WNV, HSV, VZV - Tylenol PRN fever - physical therapy for rehab - Per public health department: recommend RPR, gonorrhea and chlamydia. #Positive RPR - follow up on FTA-ABS - follow up on gonorrhea and chlamydia #severe genearlized weakness and dysarthria- IMPROVING. likely sequela from meningitis and pneumonia improving - physical therapy and speech eval - treatment of meningitis as above #dysphagia 2/2 west nile meningitis - NG tube insertion and Tube feeds - appreciate dietary recommendations - jevity at goal of 60 cc/hr - video swallow today #Iron deficiency anemia - %sat 13, ferritin 73. - Will need to start FeSO4 after resolution of infection Hypokalemia Hypomagnesemia - Replace as needed Nausea/vomiting - Zofran PRN FEN diet: Continue IV fluids Regular diet when awake but otherwise NPO Heparin subq DVT PPX Discussed with RN, piano case maker, [facility], infectious disease and pulmonology. I spent 38 minutes on this patient's care, including >50% on counseling and/or coordination of care. Time of note may not reflect time patient was seen Subjective Date patient seen: Mar 09, 2019 Constitutional: Denies: chills, diaphoresis, fever, malaise, weakness, other HEENT: Denies: eye pain, blurred vision, tearing, double vision, ear pain, ear discharge, nose pain, nose congestion, throat pain, throat swelling, mouth pain , mouth swelling, other Cardiovascular: Denies: chest pain, edema, irregular heart rate, lightheadedness, palpitations, syncope, other Respiratory: Denies: cough, orthopnea, shortness of breath, SOB with excertion , SOB at rest, sputum, stridor, wheezing, other Gastrointestinal/Abdominal: Denies: abdomen distended, abdominal pain, black stools, tarry stools, blood in stool, constipated, diarrhea, difficulty swallowing, nausea, poor appetite, poor fluid intake, rectal bleeding, vomiting , other Genitourinary: Denies: burning, discharge, frequency, flank pain, hematuria, incontinence, pain, urgency, other Neurologic/Psychiatric: Denies: anxiety, depressed, emotional problems, headache, numbness, paresthesia, pre-existing deficit, seizure, tingling, tremors, weakness, other Endocrine: Denies: excessive sweating, flushing, intolerance to cold, intolerance to heat, increased hunger, increased thirst, increased urine, unexplained weight gain, unexplained weight loss, other Hematologic/Lymphatic: Denies: anemia, easy bleeding, easy bruising, other Allergies: Coded Allergies: No Known Allergies (Unverified , 02/27/19) Subjective No acute events overnight per nursing. The patient continues to improve. She was able to get up with physical therapy and walk around the room. She is pending evaluation by speech therapy for dysphasia. She will undergo a video swallow evaluation. She is also pending a possible transfer today to [place]. She denies any chest pain palpitations shortness of breath nausea vomiting fever or chills.still on 2L nasal cannula. Continues to feel stronger, more alert. Working with physical therapy. At goal tube feeds. Pending transfer to [place]. Denies chest pain, fever, chills, neck pain or stiffness Objective Last 24 Hour Vital Signs Date Time Temp Pulse Resp B/P (MAP) Pulse Ox O2 Delivery O2 Flow Rate FiO2 03/09/19 12:00 97 03/09/19 12:00 99.1 99 18 140/101 (114) 100 03/09/19 08:00 99.5 94 18 138/94 (109) 100 03/09/19 08:00 99 03/09/19 07:27 91 20 100 Room Air 21 88 20 96 03/09/19 07:04 96 Room Air 03/09/19 04:00 111 03/09/19 04:00 97.8 92 20 139/93 (108) 95 03/09/19 00:00 98.1 91 21 137/97 (110) 97 03/09/19 00:00 88 03/08/19 21:00 98 Nasal Cannula 3.0 32 03/08/19 21:00 103 28 100 Nasal Cannula 2.0 28 106 24 98 03/08/19 20:00 99 03/08/19 20:00 99.2 104 20 144/103 (117) 97 03/08/19 16:00 104 03/08/19 16:00 98.6 100 18 140/92 (108) 93 Intake and Output 03/08/19 03/09/19 19:00 07:00 Intake Total 250 ml 3041.666 ml Output Total 2300 ml Balance -2050 ml 3041.666 ml Free Water 100 ml IV Total 100 ml 2391.666 ml Tube Feeding 50 ml 650 ml Output Urine Total 2300 ml # Bowel Movements 1 Laboratory Tests 03/08/19 16:03: Chlamydia trachomatis RNA [Pending], Neisseria gonorrhoeae RNA [Pending] 03/09/19 04:49: White Blood Count 10.9H, Red Blood Count 4.33, Hemoglobin 10.4L, Hematocrit 33.7L, Mean Corpuscular Volume 78L, Mean Corpuscular Hemoglobin 24.0L, Mean Corpuscular Hemoglobin Concent 30.9L, Red Cell Distribution Width 15.4H, Platelet Count 566H, Mean Platelet Volume 4.2L, Neutrophils (%) (Auto) 70.5, Lymphocytes (%) (Auto) 17.3L, Monocytes (%) (Auto) 7.9, Eosinophils (%) (Auto) 3.8H, Basophils (%) (Auto) 0.6, Sodium Level 143, Potassium Level 3.4L, Chloride Level 106, Carbon Dioxide Level 30, Anion Gap 7, Blood Urea Nitrogen 7 , Creatinine 0.6, Estimat Glomerular Filtration Rate > 60, Glucose Level 103, Calcium Level 9.0 Height (Feet): 5 Height (Inches): 7.00 Weight (Pounds): 228 General Appearance: WD/WN, no apparent distress, alert EENT: PERRL/EOMI, normal ENT inspection Neck: non-tender, normal alignment, supple Cardiovascular: normal peripheral pulses, normal rate, no JVD Respiratory/Chest: chest wall non-tender, lungs clear, normal breath sounds, no respiratory distress Abdomen: normal bowel sounds, non tender, soft Extremities: normal range of motion, non-tender Neurologic: casting sorter II-XII grossly normal, no motor/sensory deficits, alert, oriented x 3 Skin: normal pigmentation, warm/dry Surinder Lester D.O. Mar 09, 2019 14:20
--- NOTE | 2019-03-09 14:28 | Cardiology Report ---
APPROVED REPORT EKG Measurement Heart [id number] MI 104P [id number] Sinus tachycardia with short MI Possible Lateral infarct, age undetermined Abnormal ECG
--- NOTE | 2019-03-09 15:24 | NUR ---
SWALLOW/SPEECH THERAPY NOTE:COMPLETED MOD BARIUM SWALLOW STUDY, SEE FULL REPORT TO FOLLOW AFTER IMAGES REVIEWED LATER. 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 (BETWEEN LEVELS 4 AND 3 ON THE TINA DYSPHAGIA OUTCOME SEVERITY SCALE). NO ASPIRATION NOR SIGNIFICANT LARYNGEAL PENETRATION BUT HAS HIGH RISK DUE TO DELAYED SWALLOW , LATE CLOSURE OF LARYNGEAL VESTIBULE, AND OROPHARYNGEAL DYSMOTILITY. HIGH RISK OF ASP/PENETRATION PARTICULARLY IF ASP PRECAUTIONS AND SWALLOWING STRATEGIES ARE NOT USED. COMPONENTS AND DEFICITS THAT INCREASE ASPIRATION/PENETRATION AND REDUCE SWALLOW EFFICIENCY: Oral Impairment Lip Closure (on left) (also has some lip tremors) Tongue Control (has tongue tremor also) Bolus prep/mastication Bolus transport/lingual motion Oral residue Initiation pharyngeal swallow Pharyngeal Impairment Soft palate elevation Laryngeal elevation (LE) Ant. hyoid excursion (AHE) Epiglottic movement late laryngeal vestibule closure Pharyngeal stripping wave Pharyngoesophageal segment opening Tongue base retraction Pharyngeal residue GROSSLY FUNCTIONAL ESOPHAGEAL PHASE IN LATERAL LIMITED VIEW. TRIAL TX - BENEFITS FROM EXTRA HARD SWALLOWS ABOUT 2-4 EXTRA SWALLOW ESPECIALLY WITH HONEY THICK AND PUDDING/MASTICATED SOLIDS OR USE LIQUID WASH, MORE TIME, SMALLER AMOUNTS, ONE SMALL SIP AT A TIME OR TSP LEVEL, NECTAR THICK SAFEST. DIFFICULTY TUCKING CHIN (EVEN WITH TACTILE CUES) BUT HAD TRACE PENETRATION (ABOVE VF WITH EJECTION) WHEN USED ONCE. WHEN CHIN SPONTANEOUSLY AND SLIGHTLY UP HAD PENETRATION (ABOVE VOCAL FOLDS WITH EJECTION). DID NOT UNDERSTAND EFFORTFUL BREATH HOLD BUT COULD LEARN WITH PRACTICE RECOMMENDATIONS: CONSIDER CONTINUING WITH NGT (12 ENGLISH PRESENT DURING MBSS) PRIMARY SOURCE OF NUTRITION AND HYDRATION. WILL KEEP IN NGT FOR NOW UNTIL PT ABLE TO EFFICIENTLY TOLERATE 75% INTAKE OF 3 MEALS PER DAY. WILL INITIATE PO INTAKE OF LIQUIFIED PUREED LIKE NECTAR THICK SOUP AND THIN LIQUIDS OK ONE SMALL SIP AT A TIME USING OTHER POSTED ASPIRATION PRECAUTIONS. SKILLED DYSPHAGIA MANAGEMENT AND TX D/W PATIENT, BARBARA VELEZ, AND DR MULTANI (WHO AGREED WITH RECOMMENDATIONS).
--- NOTE | 2019-03-09 15:52 | NUR ---
*-* INSURANCE *-* UPDATED AVAILABLE CLINICALS HAVE BEEN FAXED TO: [facility] NO QUANTITY SURVEYOR ASSIGNED AT THIS TIME, PLEASE FAX THE REVIEW/CLINICAL P- [phone] / [phone] F- [phone]...REVIEW/CLINICAL
[2019-03-09 15:57] VITALS: BP 141/103
--- NOTE | 2019-03-09 16:03 | NUR ---
DISCHARGE SWALLOW/SPEECH THERAPY SUMMARY: MEDICAL STATUS UPDATES: ADMITTED 02/27/19 (ONE AND A HALF WEEKS) WITH FEVER, AMS, AND HEADACHE 3 DAYS. HAS ACUTE SEVERE SEPSIS, ASPIRATION PNEUMONIA AND PNEUMONITIS (INHALATION OF FOOD/VOMIT (R LL), WEST NILE VIRAL MENINGITIS, AMS METABOLIC ENCEPHALOPATHY, ACUTE RESPIRATORY FAILURE WITH HYPOXIA (WAS ON REBREATHER), ACQUIRED DYSPHAGIA (WITH LIQUIDS AND PUREED DURING SWALLOW EVAL) AND DYSPHONIA/DYSARTHRIA AND COG-LINGUISTIC DEFICITS SLOWLY RESOLVING. 03/07/19 CXR DIFFUSE CONSOLIDATION RIGHT MIDDLE AND LOWER LOBES AND ELEVATED RIGHT HEMIDIAPHRAGM. SWALLOW STATUS: PATIENT MORE ALERT AND READY FOR MOD BARIUM SWALLOW STUDY TODAY. STILL HAS A 12 ARMENIAN NGT. MANAGING HER ORAL SECRETIONS WELL. TONGUE/LIP MOVEMENTS GROSSLY FUNCTIONAL. TONGUE NEEDS ORAL CARE AND HAS A MILD TREMOR WITH INTENTION MOSTLY. PATIENT IS HUNGRY. LEFT MESSAGE WITH RD REGARDNG DIET TYPE IF PO TO START. SHE HAS OBESITY CLASS II PER RD. SPEECH AND LANGUAGE-COGNITIVE SKILLS: ORDER FOR FORMAL SPEECH EVAL, SCREENING COMPLETED TODAY DUE TO TIME CONSTRAINTS. ALERT AND ABLE TO EXPRESS BASIC NEEDS. STILL HAS DYSARTHRIA AND DYSPHONIA. HE VOICE SOFT SHE HAS A REDUCED SPEAKING RATE, PAUSES FOR WORD-RETRIEVAL AND RECENT MEMORY ISSUES. HEAD CT NORMAL, SHE IS ORIENTED X4 (INCLUDES SITUATION). B[place] BUT PARENTS ARE FROM [place]. HAS 5 SIBLINGS AND PARENTS ARE IN [place]. HAS A BOYFRIEND. RESP RATE UP TO 27 YESTERDAY TODAY 20. PLAN: F/UP WITH FIRST ASSIST AT [facility] FOR SWALLOW MANAGEMENT AND TX AND SPEECH/LANGAUGE/COGNITIVE EVAL/TX COMPLETED MODIFIED BARIUM SWALLOW STUDY TODAY CONTINUE WITH NONORAL FEEDINGS (OSMOLITE) AND ORAL CARE (BRUSH TONGUE IT IS WHITE). D/W BARBARA VELEZ AND TITLE PROCESSOR WILL D/W FAMILY RESULTS OF STUDY PER ROSIE JIMENEZ, THE PATIENT MAY BE DISCHARGED TO [place] LATER TODAY.
--- NOTE | 2019-03-09 16:23 | Infectious Diseases Prog Note ---
Assessment/Plan Assessment/Plan A) 1) WNV meningitis/encephalitis, + initial igm csf and serology, f/u serum igm + and igg + 2) herpes testing negative, ? rickettsial infection 3) sob, hypoxia - likely aspiration event, sepsis, fevers, leukocytosis, CT chest c/w pna but neg for PE 4) allergies - nkda, sh-negative, fh-nc, mar noted 5) pmh otherwise negative 6) d/w RN P) 1) vancomycin and zosyn - day # 5, plan on 7 day treatment course for pna if chest x-ray stable 2) discontinue acyclovir and finish doxycycline (s/p > 7 day tx course) 3) f/u on fta-abs syphilis conformation test, monitor labs, check final serology 4) continue treatment per primary and consultants 5) supportive care, clinically improved 6) d/w Dr. Rios Subjective Constitutional: Denies: fever HEENT: Reports: other - swallowing better in discussion with speech pathology Respiratory: Denies: shortness of breath, productive cough Gastrointestinal/Abdominal: Denies: nausea, vomiting, diarrhea Genitourinary: Reports: other - no espino Psychiatric: Denies: depression Skin: Reports: rash - stable Hematologic: Denies: bleeding Musculoskeletal: Denies: pain Allergies: Coded Allergies: No Known Allergies (Unverified , 02/27/19) Objective Vital Signs Last 24 Hour Vital Signs Date Time Temp Pulse Resp B/P (MAP) Pulse Ox O2 Delivery O2 Flow Rate FiO2 03/09/19 15:57 99.5 111 18 141/103 (116) 98 03/09/19 12:00 97 03/09/19 12:00 99.1 99 18 140/101 (114) 100 03/09/19 08:00 99.5 94 18 138/94 (109) 100 03/09/19 08:00 99 03/09/19 07:27 91 20 100 Room Air 21 88 20 96 03/09/19 07:04 96 Room Air 03/09/19 04:00 111 03/09/19 04:00 97.8 92 20 139/93 (108) 95 03/09/19 00:00 98.1 91 21 137/97 (110) 97 03/09/19 00:00 88 03/08/19 21:00 98 Nasal Cannula 3.0 32 03/08/19 21:00 103 28 100 Nasal Cannula 2.0 28 106 24 98 03/08/19 20:00 99 03/08/19 20:00 99.2 104 20 144/103 (117) 97 Height (Feet): 5 Height (Inches): 7.00 Weight (Pounds): 228 General Appearance: no acute distress HEENT: normocephalic, atraumatic, anicteric, mucous membranes moist Respiratory/Chest: lungs clear, normal breath sounds, no respiratory distress, no accessory muscle use Cardiovascular: normal rate, regular rhythm, no gallop/murmur, no JVD Abdomen: normal bowel sounds, soft, non tender, no organomegaly, non distended Genitourinary: other - no espino Extremities: no cyanosis Skin: rash - stable Neurologic/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 There is no adenopathy, pleural or pericardial effusions are identified. There is no aortic dissection or aneurysm identified within the chest. There is dense right basilar consolidation. Consider pneumonia. Mild posterior basal atelectasis also demonstrated on the left. There is extensive artifact limiting evaluation. IMPRESSION: No evidence of pulmonary embolus, aortic dissection or aneurysm. Suspected pneumonia at the right lung base. Correlate clinically. Limited evaluation due to artifact Chest x-ray -03/07/19 - IMPRESSION: Diffuse consolidation throughout the right middle and lower lobes, simulating the appearance of an elevated right hemidiaphragm. Microbiology Date/Time Source Procedure Growth Status 03/05/19 00:00 Blood Blood Culture - Preliminary NO GROWTH AFTER 72 HOURS Resulted 02/27/19 19:04 Cerebral Spinal Fluid Gram Stain - Final Complete 02/27/19 19:04 Cerebral Spinal Fluid CSF Culture - Final NO GROWTH Complete 02/27/19 14:45 Nasal Nares - Final Complete 02/27/19 14:45 Nasal Nares - Final Complete 03/05/19 16:00 Urine,Clean Catch Urine Culture - Final Ynes Albicans Mixed Gram Positive Organism Complete Laboratory Tests Test 03/09/19 04:49 White Blood Count 10.9 K/UL (4.8-10.8) H Red Blood Count 4.33 M/UL (4.20-5.40) Hemoglobin 10.4 G/DL (12.0-16.0) L Hematocrit 33.7 % (37.0-47.0) L Mean Corpuscular Volume 78 FL (80-99) L Mean Corpuscular Hemoglobin 24.0 PG (27.0-31.0) L Mean Corpuscular Hemoglobin Concent 30.9 G/DL (32.0-36.0) L Red Cell Distribution Width 15.4 % (11.6-14.8) H Platelet Count 566 K/UL (150-450) H Mean Platelet Volume 4.2 FL (6.5-10.1) L Neutrophils (%) (Auto) 70.5 % (45.0-75.0) Lymphocytes (%) (Auto) 17.3 % (20.0-45.0) L Monocytes (%) (Auto) 7.9 % (1.0-10.0) Eosinophils (%) (Auto) 3.8 % (0.0-3.0) H Basophils (%) (Auto) 0.6 % (0.0-2.0) Sodium Level 143 MMOL/L (136-145) Potassium Level 3.4 MMOL/L (3.5-5.1) L Chloride Level 106 MMOL/L (98-107) Carbon Dioxide Level 30 MMOL/L (21-32) Anion Gap 7 mmol/L (5-15) Blood Urea Nitrogen 7 mg/dL (7-18) Creatinine 0.6 MG/DL (0.55-1.30) Estimat Glomerular Filtration Rate > 60 mL/min (>60) Glucose Level 103 MG/DL (74-106) Calcium Level 9.0 MG/DL (8.5-10.1) Current Medications Medications (Trade) Dose Ordered Sig/Kandi Route PRN Reason Start Time Stop Time Status Last Admin Dose Admin Acetaminophen (Tylenol) 650 mg Q6H PRN ORAL Mild Pain/Temp > 100.5 03/07/19 18:00 03/30/19 11:54 Albuterol/ Ipratropium (Albuterol/ Ipratropium) 3 ml Q4H PRN HHN Shortness of Breath 03/07/19 16:45 03/10/19 16:44 Albuterol/ Ipratropium (Albuterol/ Ipratropium) 3 ml Q6HRT HHN 03/07/19 19:00 03/10/19 18:59 03/09/19 07:17 Chlorhexidine Gluconate (Mickie-Hex 2%) 1 applic DAILY@2000 TOPIC 03/07/19 20:00 03/31/19 19:59 03/08/19 20:36 Dextrose (Dextrose 50%) 25 ml Q30M PRN IV Hypoglycemia 03/07/19 16:30 03/29/19 18:29 Dextrose (Dextrose 50%) 50 ml Q30M PRN IV Hypoglycemia 03/07/19 16:30 03/29/19 18:29 Docusate Sodium (Colace) 100 mg EVERY 12 HOURS NG 03/07/19 21:00 04/05/19 09:29 03/09/19 09:23 Doxycycline Monohydrate (Doxycycline Monohydrate) 100 mg EVERY 12 HOURS ORAL 03/07/19 21:00 03/12/19 20:59 03/09/19 09:23 Heparin Sodium (Porcine) (Heparin 5000 units/ml) 5,000 units EVERY 12 HOURS SUBQ 03/07/19 21:00 03/29/19 20:59 03/09/19 09:26 Ondansetron HCl (Zofran) 4 mg Q6H PRN IVP Nausea & Vomiting 03/07/19 18:00 03/29/19 11:56 Piperacillin Sod/ Tazobactam Sod 3.375 gm/Sodium Chloride 110 ml @ 27.5 mls/hr EVERY 8 HOURS IVPB 03/07/19 22:00 03/12/19 21:59 03/09/19 14:00 Sodium Chloride 1,000 ml @ 100 mls/hr Q10H IV 03/07/19 17:30 04/06/19 17:29 03/08/19 22:53 Vancomycin HCl (Vanco rx to dose) 1 ea DAILY PRN MISC Per rx protocol 03/07/19 17:30 04/06/19 17:29 Vancomycin/Sodium Chloride 275 ml @ 183.333 mls/hr Q6H IVPB 03/07/19 20:00 03/12/19 01:59 03/09/19 14:00 Alejandro Arellano MD Mar 09, 2019 16:23
--- NOTE | 2019-03-09 16:55 | Pulmonology Progress Note ---
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 neuro eval FC Transfer to Subjective Allergies: Coded Allergies: No Known Allergies (Unverified , 02/27/19) Subjective OSEAS AFVSS on RA Lethargic but arousable Denies FC, CP, SOB or cough Naren TF's Objective Last 24 Hour Vital Signs Date Time Temp Pulse Resp B/P (MAP) Pulse Ox O2 Delivery O2 Flow Rate FiO2 03/09/19 15:57 99.5 111 18 141/103 (116) 98 03/09/19 12:00 97 03/09/19 12:00 99.1 99 18 140/101 (114) 100 03/09/19 08:00 99.5 94 18 138/94 (109) 100 03/09/19 08:00 99 03/09/19 07:27 91 20 100 Room Air 21 88 20 96 03/09/19 07:04 96 Room Air 03/09/19 04:00 111 03/09/19 04:00 97.8 92 20 139/93 (108) 95 03/09/19 00:00 98.1 91 21 137/97 (110) 97 03/09/19 00:00 88 03/08/19 21:00 98 Nasal Cannula 3.0 32 03/08/19 21:00 103 28 100 Nasal Cannula 2.0 28 106 24 98 03/08/19 20:00 99 03/08/19 20:00 99.2 104 20 144/103 (117) 97 Intake and Output 03/08/19 03/09/19 19:00 07:00 Intake Total 250 ml 3041.666 ml Output Total 2300 ml Balance -2050 ml 3041.666 ml Free Water 100 ml IV Total 100 ml 2391.666 ml Tube Feeding 50 ml 650 ml Output Urine Total 2300 ml # Bowel Movements 1 General Appearance: no acute distress, cachetic HEENT: normocephalic, atraumatic, anicteric, mucous membranes moist Respiratory/Chest: chest wall non-tender, lungs clear, normal breath sounds, no respiratory distress, no accessory muscle use Cardiovascular: normal peripheral pulses, normal rate, regular rhythm Abdomen: normal bowel sounds, soft, non tender, no organomegaly, non distended , no mass Extremities: no cyanosis, no clubbing, no edema Laboratory Tests 03/09/19 04:49: White Blood Count 10.9H, Red Blood Count 4.33, Hemoglobin 10.4L, Hematocrit 33.7L, Mean Corpuscular Volume 78L, Mean Corpuscular Hemoglobin 24.0L, Mean Corpuscular Hemoglobin Concent 30.9L, Red Cell Distribution Width 15.4H, Platelet Count 566H, Mean Platelet Volume 4.2L, Neutrophils (%) (Auto) 70.5, Lymphocytes (%) (Auto) 17.3L, Monocytes (%) (Auto) 7.9, Eosinophils (%) (Auto) 3.8H, Basophils (%) (Auto) 0.6, Sodium Level 143, Potassium Level 3.4L, Chloride Level 106, Carbon Dioxide Level 30, Anion Gap 7, Blood Urea Nitrogen 7 , Creatinine 0.6, Estimat Glomerular Filtration Rate > 60, Glucose Level 103, Calcium Level 9.0 Current Medications Medications (Trade) Dose Ordered Sig/Kandi Route PRN Reason Start Time Stop Time Status Last Admin Dose Admin Acetaminophen (Tylenol) 650 mg Q6H PRN ORAL Mild Pain/Temp > 100.5 03/07/19 18:00 03/30/19 11:54 Albuterol/ Ipratropium (Albuterol/ Ipratropium) 3 ml Q4H PRN HHN Shortness of Breath 03/07/19 16:45 03/10/19 16:44 Albuterol/ Ipratropium (Albuterol/ Ipratropium) 3 ml Q6HRT HHN 03/07/19 19:00 03/10/19 18:59 03/09/19 07:17 Chlorhexidine Gluconate (Mickie-Hex 2%) 1 applic DAILY@2000 TOPIC 03/07/19 20:00 03/31/19 19:59 03/08/19 20:36 Dextrose (Dextrose 50%) 25 ml Q30M PRN IV Hypoglycemia 03/07/19 16:30 03/29/19 18:29 Dextrose (Dextrose 50%) 50 ml Q30M PRN IV Hypoglycemia 03/07/19 16:30 03/29/19 18:29 Docusate Sodium (Colace) 100 mg EVERY 12 HOURS NG 03/07/19 21:00 04/05/19 09:29 03/09/19 09:23 Heparin Sodium (Porcine) (Heparin 5000 units/ml) 5,000 units EVERY 12 HOURS SUBQ 03/07/19 21:00 03/29/19 20:59 03/09/19 09:26 Ondansetron HCl (Zofran) 4 mg Q6H PRN IVP Nausea & Vomiting 03/07/19 18:00 03/29/19 11:56 Piperacillin Sod/ Tazobactam Sod 3.375 gm/Sodium Chloride 110 ml @ 27.5 mls/hr EVERY 8 HOURS IVPB 03/07/19 22:00 03/12/19 21:59 03/09/19 14:00 Sodium Chloride 1,000 ml @ 100 mls/hr Q10H IV 03/07/19 17:30 04/06/19 17:29 03/08/19 22:53 Vancomycin HCl (Vanco rx to dose) 1 ea DAILY PRN MISC Per rx protocol 03/07/19 17:30 04/06/19 17:29 Vancomycin/Sodium Chloride 275 ml @ 183.333 mls/hr Q6H IVPB 03/07/19 20:00 03/12/19 01:59 03/09/19 14:00 Moises Hansen MD Mar 09, 2019 16:55
--- NOTE | 2019-03-09 19:20 | NUR ---
HAND-OFF: Report given to BARBARA Mathews. Plan of care endorsed, patient remains stable.
--- NOTE | 2019-03-09 19:25 | NUR ---
NURSE NOTES: Received patient from BARBARA Nascimento. Patient in bed resting, no signs of distress or pain noted. Patient able to communicate needs. PICC line site checked, intact and patent. NG-tube running Jevity 1.2 at 60 ml/hr. Plan of care endorsed from day shift for transfer to [facility]. Bed in lowest position, brakes on, siderails up x3, and call light within reach. Will continue with plan of care.
[2019-03-09 20:00] VITALS: BP 138/87
--- NOTE | 2019-03-09 20:17 | NUR ---
NURSE NOTES: Received call from Chelsea, care transition manager from [facility] , endorsed 8 pm vital signs and communicated patient will be picked up at 2100 by [facility].
--- NOTE | 2019-03-09 20:18 | NUR ---
NURSE NOTES: Called Ctahy Robertson RN at [facility] to give report for patient transfer. Plan of care endorsed.
--- NOTE | 2019-03-09 21:30 | NUR ---
HAND-OFF: Report given to BARBARA Roberson. Plan of care endorsed.
--- NOTE | 2019-03-09 21:35 | NUR ---
NURSE NOTES: Pt. picket up by [facility]. Report given to Da BAER. Pt. transferred to [facility] with PICC line on right upper arm noted, dressing intact, NG tube in place and clamped. vendor manager off. Pt. belongings signed by patients and with the patients. Pt. transferred via [facility] safely without incidents. Report given to Cathy JIMENEZ at [facility].
--- NOTE | 2019-03-11 15:14 | Diagnostic Imaging Report ---
Indications: Dysphagia Technique: Patient ingested multiple substances under the supervision of speech pathology. Video fluoroscopic recording performed. Total fluoroscopy time 0.80, 1.6 seconds. Total dose area product 0.73297 mGycm2 Total number of images-12 Comparison: none Findings: Occasional trace supraglottic laryngeal penetration is seen with ingestion of thin liquid barium. Occasional trace supraglottic laryngeal penetration is also seen with ingestion of nectar thick liquid barium. No cristian aspiration of either substance. Ingestion of honey thick liquid barium, barium thinning and masticated solid demonstrates residual pooling in the vallecula Impression: Positive for penetration of thin and nectar thick liquid barium. Negative for aspiration Please refer to speech pathology report for more detailed analysis
== END 2019-03-09 21:30 | disposition short-term general hospital (02) | DRG 871 ==
LOC: EDBD 13:29 → EMR 14:11 → EDBD 17:58 → 2E 17:58 → EDBEDREQ 18:47 → 2W 20:46 → 2E 03-05 04:08 → 2W 03-05 11:20 → 2E 03-07 17:22
PROC: 009U3ZX Drainage of Spinal Canal, Percutaneous Approach, Diagnostic (ICD-10-PCS; principal; 2019-02-27)
DX: A41.9 Sepsis, unspecified organism (principal); J96.01 Acute respiratory failure with hypoxia; J69.0 Pneumonitis due to inhalation of food and vomit; G93.41 Metabolic encephalopathy; A92.32 West Nile virus infection with other neurologic manifestation; A85.8 Other specified viral encephalitis; A87.8 Other viral meningitis; R65.20 Severe sepsis without septic shock; E87.6 Hypokalemia; R13.10 Dysphagia, unspecified; R47.1 Dysarthria and anarthria; D50.9 Iron deficiency anemia, unspecified
CPT/HCPCS: 36415; 36569; 36600; 62270; 70450; 71045; 71275; 74230; 76937; 80048; 80053; 80202; 80307; 81001; 81003; 81025; 82550; 82553; 82728; 82803; 82945; 83540; 83550; 83605; 83735; 83880; 84100; 84157; 84439; 84443; 84481; 84484; 85007; 85025; 85379; 86592; 86635; 86703; 86705; 86709; 86710; 86780; 86787; 86790; 86803; 87040; 87070; 87086; 87205; 87340; 87449; 87491; 87590; 89051; 93005; 93306; 93970; 94640; 94664; 96361; 96365; 99291; J3490; J7620; J8499